=== PATIENT | male | born 1955 | race Caucasian/White ===

== ENCOUNTER → 2017-02-03 | Outpatient (CLI) | payer BC ==
[2017-02-06 13:41] LABS: Hepatits C Virus RNA, Quant <12 IU/mL (<12); LOG HCV IU/mL <1.08 (<1.08)
== END | disposition home or self-care (01) ==
LOC: LABWHC1 16:12
PROVIDERS: ATTEND Family Medicine
DX: R94.5 Abnormal results of liver function studies (principal); B17.10 Acute hepatitis C without hepatic coma
CPT/HCPCS: 36415; 87522

== ENCOUNTER → 2018-07-02 | Outpatient (CLI) | payer BC ==
--- NOTE | 2018-07-02 15:43 | ECHOF ---
Referral Reason:R01.1 Cardiac murmur, unspecified MEASUREMENTS -------- HEIGHT: 167.6 cm WEIGHT: 88.5 kg BP: 133/77 IVSd: 1.5 cm (0.6 - 1.1) LVIDd: 3.7 cm (3.9 - 5.3) LVPWd: 1.4 cm (0.6 - 1.1) IVSs: 1.6 cm LVIDs: 2.8 cm LVPWs: 1.9 cm LA Diam: 3.5 cm (2.7 - 3.8) RVIDd: 3.0 cm (< 3.3) LAESV Index (A-L): 24.65 ml/m Ao Diam: 3.2 cm (2.0 - 3.7) AV Cusp: 1.7 cm (1.5 - 2.6) EPSS: 0.5 cm MV E Akash: 0.81 m/s MV DecT: 240 ms MV A Akash: 1.09 m/s MV E/A Ratio: 0.74 AV maxP.29 mmHg AV meanP.65 mmHg MV EF SLOPE: 58.40 mm/s (70 - 150) MV EXCURSION: 19.44 mm (> 18.000) FINDINGS -------- Sinus rhythm. This was a technically adequate study. The left ventricular size is normal. There is moderate concentric left ventricular hypertrophy. O verall left ventricular systolic function is normal with, an EF between 60 - 65 %. The right ventricle is normal in size. Normal LA size by volume 22+/-6 ml/m2. The right atrium is normal in size. There is moderate aortic valve sclerosis. There is severe aortic stenosis present. Peak/mean grad ient across the Aortic Valve is 103.29mmHg / 69.65mmHg. Can't exclude possible Bicuspid Aov. The mitral valve is normal. The tricuspid valve appears structurally normal. Trace/mild (physiologic) pulmonic regurgitation. The aortic root size is normal. Normal inferior vena cava with normal inspiratory collapse consistent with estimated right atrial pre ssure of 5 mmHg. There is no pericardial effusion. CONCLUSIONS -------- 1. Sinus rhythm. 2. This was a technically adequate study. 3. The left ventricular size is normal. 4. There is moderate concentric left ventricular hypertrophy. 5. Overall left ventricular systolic function is normal with, an EF between 60 - 65 %. 6. The right ventricle is normal in size. 7. Normal LA size by volume 22+/-6 ml/m2. 8. The right atrium is normal in size. 9. There is moderate aortic valve sclerosis. 10. There is severe aortic stenosis present. 11. Peak/mean gradient across the Aortic Valve is 103.29mmHg / 69.65mmHg. 12. Can't exclude possible Bicuspid Aov. 13. The mitral valve is normal. 14. The tricuspid valve appears structurally normal. 15. Trace/mild (physiologic) pulmonic regurgitation. 16. The aortic root size is normal. 17. Normal inferior vena cava with normal inspiratory collapse consistent with estimated right atrial pressure of 5 mmHg. 18. There is no pericardial effusion. SUPPORTABILITY ENGINEER: Mandy Plasencia RDCS
== END ==
LOC: RADECHMAIN 13:09
PROVIDERS: ATTEND Family Medicine
DX: I51.7 Cardiomegaly (principal); I35.8 Other nonrheumatic aortic valve disorders; I37.1 Nonrheumatic pulmonary valve insufficiency
CPT/HCPCS: 93306

== ENCOUNTER 2018-09-06 21:42 | Inpatient (IN) | payer BC, MEDICARE ==
[2018-09-06] MEDS ORDERED: methylPREDNISolone SOD SUCCI 125 MG/2 ML VIAL IV STA (22:05)
[2018-09-06] MEDS ORDERED: IPRATROPIUM-ALBUTEROL 3 ML NEB INHALATION STA (22:05)
[2018-09-06] MEDS ORDERED: ASPIRIN 81 MG PO STA (22:07)
--- NOTE | 2018-09-06 22:13 | ED ---
General Adult HPI - General Chief complaint: Shortness of Breath Stated complaint: SOB Time Seen by Provider: 09/06/18 21:55 Source: patient Mode of arrival: wheelchair Limitations: no limitations - History of Present Illness Initial comments: Patient is a 63-year-old male with chief complaint of shortness of breath. He states the onset was today. He woke up and had a "tickle in his throat" states throughout the day he became more more short of breath. He has a history of COPD otherwise no medical history. He states that he has some tightness in his chest. He cannot identify inciting incident. There are no aggravating or alleviating factors though he does state his shortness of breath worse when he is lying down. - Related Data Home Medications Medication Instructions Recorded Confirmed Acetylcysteine [Nac] 500 mg PO DAILY 09/06/18 09/06/18 Ascorbic Acid [Vitamin C] 500 mg PO DAILY 09/06/18 09/06/18 Cholecalciferol [Vitamin D3] 1,000 unit PO DAILY 09/06/18 09/06/18 Fluticasone/Umeclidin/Vilanter 1 puff INHALATION DAILY 09/06/18 09/06/18 [Trelegy Ellipta 100-62.5-25] Multivitamins, Thera [Multivitamin 1 tab PO DAILY 09/06/18 09/06/18 (formulary)] Vitamin E 100 unit PO DAILY 09/06/18 09/06/18 amLODIPine [Norvasc] 10 mg PO DAILY 09/06/18 09/06/18 Allergies Allergy/AdvReac Type Severity Reaction Status Date / Time No Known Allergies Allergy Verified 09/06/18 22:47 Review of Systems ROS Statement: Those systems with pertinent positive or pertinent negative responses have been documented in the HPI. ROS Other: All systems not noted in ROS Statement are negative. Respiratory: Reports: cough, dyspnea Cardiovascular: Reports: chest pain, dyspnea on exertion Past Medical History Past Medical History: COPD, Hypertension Additional Past Medical History / Comment(s): heart murmur History of Any Multi-Drug Resistant Organisms: None Reported Past Surgical History: Orthopedic Surgery Additional Past Surgical History / Comment(s): lt leg Past Psychological History: No Psychological Hx Reported Smoking Status: Former smoker Past Alcohol Use History: Daily Past Drug Use History: None Reported General Exam Limitations: no limitations General appearance: alert Head exam: Present: atraumatic, normocephalic Eye exam: Present: normal appearance ENT exam: Present: normal exam Neck exam: Present: normal inspection Respiratory exam: Present: normal lung sounds bilaterally Cardiovascular Exam: Present: normal rhythm, tachycardia GI/Abdominal exam: Present: soft. Absent: distended, tenderness Rectal exam: Present: deferred Extremities exam: Present: other (Patient right leg is ordered of the left leg with some venous engorgement however the patient states that this is not new for him. He states that he had an injury to his left leg and had part of his Muscle surgically removed. There is no tenderness to palpation of either leg) Back exam: Present: normal inspection Neurological exam: Present: alert, oriented X3 Psychiatric exam: Present: normal affect, normal mood Skin exam: Present: warm, dry, intact Course Vital Signs 09/06/18 09/06/18 09/06/18 21:43 21:56 22:22 Temperature 100.0 F H Pulse Rate 108 H 98 Respiratory 26 H 22 Rate Blood Pressure 124/74 O2 Sat by Pulse 94 L Oximetry 09/06/18 09/06/18 09/06/18 22:33 22:54 22:55 Temperature 99.8 F H Pulse Rate 90 118 H 103 H Respiratory 22 Rate Blood Pressure 120/72 O2 Sat by Pulse 95 Oximetry 09/06/18 23:25 Temperature 99.6 F Pulse Rate 108 H Respiratory 22 Rate Blood Pressure 169/84 O2 Sat by Pulse 92 L Oximetry Medical Decision Making - Medical Decision Making Patient presents with chief complaint of shortness of breath and chest tightness. On initial evaluation, patient is tachypneic and tachycardic. His oxygen saturation is 92% on room air. EKG performed at 1256 shows sinus tachycardia with a rate of 105 beats per minutes. There is a right bundle branch block present. There are no previous EKGs to compare to. Segment otherwise appear to be within normal limits. Patient and be evaluated basic labs including cardiac enzymes, chest x-ray, and d-dimer. He was given aspirin initially. He is given 3 DuoNeb treatments and Solu-Medrol. 10:52 PM Lab evaluation shows mildly elevated liver enzymes likely secondary to daily drinking, patient is influenza A positive, his d-dimer is elevated 0.63. If age-adjusted, the dimer is negative however given the patient's clinical appearance and shortness of breath without abnormal lung sounds he will be sent for a computed tomography scan of the chest to rule out PE. 11:18 PM Patient return CAT scan, he had what appeared to be a syncopal episode but recovered quickly on his own. Currently he is awake and alert. Still mild respiratory distress. Repeat EKG is unchanged, it shows sinus tachycardia with a rate of 108, right bundle-branch still present. Segment was within normal limits. Patient has a mildly elevated BNP in the 500 range, his troponin is mildly elevated. This is likely secondary to demand. We'll hold on heparinization at this time however will bring patient into the hospital for formal cardiac evaluation. admitting physician is Dr. Maier, he will be informed in the morning. admission orders placed. - Lab Data Result diagrams: 09/06/18 22:19 09/06/18 22: Lab Results 09/06/18 09/06/18 09/06/18 Range/Units 22:19 22:19 22:19 WBC 9.0 (3.8-10.6) k/uL RBC 4.39 (4.30-5.90) m/uL Hgb 15.0 (13.0-17.5) gm/dL Hct 43.8 (39.0-53.0) % MCV 99.7 (80.0-100.0) fL MCH 34.1 (25.0-35.0) pg MCHC 34.2 (31.0-37.0) g/dL RDW 12.7 (11.5-15.5) % Plt Count 164 (150-450) k/uL Neutrophils % 90 % Lymphocytes % 3 % Monocytes % 3 % Eosinophils % 3 % Basophils % 0 % Neutrophils # 8.1 H (1.3-7.7) k/uL Lymphocytes # 0.3 L (1.0-4.8) k/uL Monocytes # 0.3 (0-1.0) k/uL Eosinophils # 0.2 (0-0.7) k/uL Basophils # 0.0 (0-0.2) k/uL PT (9.0-12.0) sec INR (<1.2) APTT (22.0-30.0) sec D-Dimer (<0.60) mg/L FEU Sodium (137-145) mmol/L Potassium (3.5-5.1) mmol/L Chloride (98-107) mmol/L Carbon Dioxide (22-30) mmol/L Anion Gap mmol/L BUN (9-20) mg/dL Creatinine (0.66-1.25) mg/dL Est GFR (CKD-EPI)AfAm (>60 ml/min/1.73 sqM) Est GFR (CKD-EPI)NonAf (>60 ml/min/1.73 sqM) Glucose (74-99) mg/dL Calcium (8.4-10.2) mg/dL Magnesium (1.6-2.3) mg/dL Total Bilirubin (0.2-1.3) mg/dL AST (17-59) U/L ALT (21-72) U/L Alkaline Phosphatase (38-126) U/L Troponin I (0.000-0.034) ng/mL NT-Pro-B Natriuret Pep 532 pg/mL Total Protein (6.3-8.2) g/dL Albumin (3.5-5.0) g/dL Influenza Type A RNA Detected H (Not Detectd) Influenza Type B (PCR) Not Detected (Not Detectd) 09/06/18 09/06/18 09/06/18 Range/Units 22:19 22:19 22:19 WBC (3.8-10.6) k/uL RBC (4.30-5.90) m/uL Hgb (13.0-17.5) gm/dL Hct (39.0-53.0) % MCV (80.0-100.0) fL MCH (25.0-35.0) pg MCHC (31.0-37.0) g/dL RDW (11.5-15.5) % Plt Count (150-450) k/uL Neutrophils % % Lymphocytes % % Monocytes % % Eosinophils % % Basophils % % Neutrophils # (1.3-7.7) k/uL Lymphocytes # (1.0-4.8) k/uL Monocytes # (0-1.0) k/uL Eosinophils # (0-0.7) k/uL Basophils # (0-0.2) k/uL PT 10.5 (9.0-12.0) sec INR 1.0 (<1.2) APTT 26.1 (22.0-30.0) sec D-Dimer 0.63 H (<0.60) mg/L FEU Sodium 139 (137-145) mmol/L Potassium 4.1 (3.5-5.1) mmol/L Chloride 106 (98-107) mmol/L Carbon Dioxide 20 L (22-30) mmol/L Anion Gap 13 mmol/L BUN 14 (9-20) mg/dL Creatinine 0.83 (0.66-1.25) mg/dL Est GFR (CKD-EPI)AfAm >90 (>60 ml/min/1.73 sqM) Est GFR (CKD-EPI)NonAf >90 (>60 ml/min/1.73 sqM) Glucose 117 H (74-99) mg/dL Calcium 8.8 (8.4-10.2) mg/dL Magnesium 2.0 (1.6-2.3) mg/dL Total Bilirubin 0.8 (0.2-1.3) mg/dL AST 64 H (17-59) U/L ALT 90 H (21-72) U/L Alkaline Phosphatase 83 (38-126) U/L Troponin I 0.036 H* (0.000-0.034) ng/mL NT-Pro-B Natriuret Pep pg/mL Total Protein 7.0 (6.3-8.2) g/dL Albumin 3.9 (3.5-5.0) g/dL Influenza Type A RNA (Not Detectd) Influenza Type B (PCR) (Not Detectd) Disposition Clinical Impression: Influenza, COPD exacerbation, Elevated troponin, Chest pain Disposition: ADMITTED IP TO THIS HOSP Condition: Fair Is patient prescribed a controlled substance at d/c from ED?: No Referrals: Mina Julien MD [Primary Care Provider] - 1-2 days Decision to Admit Reason: Admit from EC - Out of Hospital Transfer - Req. Specs Out of Hospital Transfer - Requested Specifics: Telemetry Unit
[2018-09-06 22:31] LABS: Basophils % (A) 0 %; Eosinophils # (A) 0.2 k/uL (0-0.7); Eosinophils % (A) 3 %; HCT 43.8 % (39.0-53.0); Lymphocytes # (A) 0.3 k/uL (1.0-4.8); Lymphocytes % (A) 3 %; MCH 34.1 pg (25.0-35.0); MCHC 34.2 g/dL (31.0-37.0); MCV 99.7 fL (80.0-100.0); Mean Platelet Volume 7.1; Monocytes # (A) 0.3 k/uL (0-1.0); Monocytes % (A) 3 %; Neutrophils # (A) 8.1 k/uL (1.3-7.7); Neutrophils % (A) 90 %; Platelet Count 164 k/uL (150-450); RBC 4.39 m/uL (4.30-5.90); RDW 12.7 % (11.5-15.5)
[2018-09-06 22:41] LABS: ALT 90 U/L (21-72); AST 64 U/L (17-59); Albumin 3.9 g/dL (3.5-5.0); Alkaline Phosphatase 83 U/L (38-126); Anion Gap 13 mmol/L; Blood Urea Nitrogen 14 mg/dL (9-20); Calcium 8.8 mg/dL (8.4-10.2); Carbon Dioxide 20 mmol/L (22-30); Chloride 106 mmol/L (98-107); Glucose 117 mg/dL (74-99); Potassium 4.1 mmol/L (3.5-5.1); Sodium 139 mmol/L (137-145); Total Bilirubin 0.8 mg/dL (0.2-1.3)
[2018-09-06 22:47] LABS: D-Dimer 0.63 mg/L FEU (<0.60); Partial Thromboplastin Time 26.1 sec (22.0-30.0); Prothrombin Time 10.5 sec (9.0-12.0)
[2018-09-06] MEDS ORDERED: SODIUM CHLORIDE 0.9% 1,000 ML IV ONE (23:13)
--- NOTE | 2018-09-06 23:30 | XR ---
EXAM: XR Chest, 2 Views CLINICAL HISTORY: Difficulty breathing. TECHNIQUE: Frontal and lateral views of the chest. COMPARISON: CTA chest dated 09/06/2018. FINDINGS: Lungs: Subtle opacity in the right perihilar and infrahilar regions and left upper lung. Pleural space: No significant pleural effusion. No pneumothorax. Heart: Mildly enlarged cardiac silhouette. Mediastinum: Unremarkable. No mediastinal widening. Bones/joints: Age-indeterminate right lateral rib fractures which are favored to be chronic. Mild osseous degenerative changes. IMPRESSION: 1. Subtle opacity in the right perihilar and infrahilar regions and left upper lung. Findings may be related to subtle nonspecific pneumonia/pneumonitis although other etiologies are not excluded. Recommend clinical correlation and follow-up imaging to assess for resolution. 2. Mildly enlarged cardiac silhouette. 3. Age-indeterminate right lateral rib fractures which are favored to be chronic. Correlate currently.
[2018-09-06] MEDS ORDERED: NALOXONE 0.4 MG/ML 1 ML VIAL IV PRN (23:33)
[2018-09-06] MEDS ORDERED: ONDANSETRON 4 MG/2 ML VIAL IVP PRN (23:33)
[2018-09-06] MEDS ORDERED: ACETAMINOPHEN TAB 500 MG TAB PO SCH (23:45)
--- NOTE | 2018-09-06 23:48 | CT ---
EXAM: CT Angiography Chest With Intravenous Contrast CLINICAL HISTORY: Pain. TECHNIQUE: Axial computed tomographic angiography images of the chest with intravenous contrast using pulmonary embolism protocol. MIP reconstructed images were created and reviewed. Coronal and sagittal reformatted images were created and reviewed. CTDI is 37.18 mGy and DLP is 555 mGy-cm. This CT exam was performed using one or more of the following dose reduction techniques: automated exposure control, adjustment of the mA and/or kV according to patient size, and/or use of iterative reconstruction technique. COMPARISON: No relevant prior studies available. FINDINGS: Pulmonary arteries: No evidence of pulmonary embolism. Aorta: Atherosclerotic vascular disease. No thoracic aortic aneurysm or dissection. Lungs: Subtle ground-glass opacities in the bilateral upper lobes, right middle lobe and right lower lobe. Pleural space: No pleural effusion or pneumothorax. Heart: Coronary artery disease. Cardiac size within normal limits. No pericardial effusion. No evidence of RV dysfunction. Mediastinum: Small hiatal hernia. Bones/joints: Healed right-sided rib fractures. Osseous degenerative changes. No dislocation. Soft tissues: Unremarkable. Lymph nodes: Mildly prominent mediastinal and hilar lymph nodes. Visualized upper abdomen: Fatty infiltration of the liver. IMPRESSION: 1. No evidence of pulmonary embolism. 2. Atherosclerotic vascular disease. No thoracic aortic aneurysm or dissection. 3. Subtle ground-glass opacities in bilateral upper lobes, right middle lobe and right lower lobe with mildly prominent mediastinal and hilar lymph nodes. Findings are suspicious for pneumonitis which may be due to infectious, inflammatory or other causes. Recommend clinical correlation and follow-up imaging following treatment to ensure resolution. 4. Fatty infiltration of the liver. 5. Small hiatal hernia. 6. Healed right-sided rib fractures.
[2018-09-07] MEDS: ALBUTEROL NEBULIZED 2.5 MG/3 ML INHALATION SCH ×7 (00:22→23:49)
[2018-09-07] MEDS: OSELTAMIVIR 75 MG CAP PO SCH ×3 (00:25→20:19)
[2018-09-07] MEDS ORDERED: ACETAMINOPHEN TAB 500 MG TAB PO PRN (00:47)
[2018-09-07 01:08] VITALS: BMI 32.8
[2018-09-07 04:28] LABS: Basophils % (A) 0 %; Eosinophils # (A) 0.1 k/uL (0-0.7); Eosinophils % (A) 1 %; HCT 43.7 % (39.0-53.0); HGB 14.4 gm/dL (13.0-17.5); Lymphocytes # (A) 0.3 k/uL (1.0-4.8); Lymphocytes % (A) 3 %; MCH 33.4 pg (25.0-35.0); MCHC 32.9 g/dL (31.0-37.0); MCV 101.5 fL (80.0-100.0); Mean Platelet Volume 7.1; Monocytes # (A) 0.1 k/uL (0-1.0); Monocytes % (A) 2 %; Neutrophils # (A) 8.5 k/uL (1.3-7.7); Neutrophils % (A) 94 %; Platelet Count 157 k/uL (150-450); RDW 12.7 % (11.5-15.5); WBC 9.1 k/uL (3.8-10.6)
[2018-09-07 04:43] LABS: Anion Gap 10 mmol/L; Blood Urea Nitrogen 12 mg/dL (9-20); Calcium 8.7 mg/dL (8.4-10.2); Carbon Dioxide 19 mmol/L (22-30); Chloride 108 mmol/L (98-107); Glucose 175 mg/dL (74-99); Potassium 4.1 mmol/L (3.5-5.1); Sodium 137 mmol/L (137-145)
[2018-09-07] MEDS: IPRATROPIUM-ALBUTEROL 3 ML NEB INHALATION SCH ×3 (12:31→20:05)
--- NOTE | 2018-09-07 14:01 | P.CRDCN ---
History of Present Illness History of present illness: This is a pleasant 63-year-old male past medical history significant for hypertension, COPD and former nicotine dependence. He denies history of coronary artery disease and has never seen a building engineer for any reason. We have been asked to see him in consultation secondary to elevated troponins. He presented to the hospital yesterday with complaints of cough. He states after going home from work last night he felt increasingly short of breath and was having pleuritic midsternal chest discomfort with deep inspiration and cough. Upon arriving to the hospital he received a breathing treatment and was placed on supplemental oxygen. He states since undergoing those 2 things his breathing has greatly improved. He denies any further shortness of breath or pleuritic chest pain. He was found to be influenza A positive. In June of last year he underwent an echocardiogram per his primary care physician secondary to auscultation over murmur which revealed preserved left ventricular systolic function with ejection fraction 60-65% with severe aortic stenosis and a mean gradient of 69 mmHg. He is seen and examined sitting up in the chair in no acute distress. HEENT denies symptoms of chest discomfort, shortness of breath, dizziness or palpitations. EKG reveals sinus tachycardia heart rate is 105 with an underlying right bundle branch block. Chest x-ray reveals subtle pacing in the right perihilar and infrahilar regions suggestive of pneumonia versus pneumonitis. CTA chest is negative for PE, atherosclerotic vascular disease, chronic glass opacities in bilateral upper lobes, right middle lobe and right lower lobe prominent lymph nodes, findings suggestive of pneumonitis. Laboratory data reviewed, WBC 9.1, hemoglobin 14.4, platelets 157, d-dimer 0.63, sodium 137, potassium 4.1, creatinine 0.66, magnesium 2.0, AST 64, ALT 90, troponin 0.036, 0.063, 0.176 and 0.330, NT proBNP 532. Current cardiac medications include amlodipine 10 mg daily. At the time of my exam: CONSTITUTIONAL: Denies fever. Denies chills. EYES: Denies blurred vision. Denies vision changes. Denies eye pain. EARS, NOSE, MOUTH & THROAT: Denies headache. Denies sore throat. Denies ear pain. CARDIOVASCULAR: Denies chest pain. Denies shortness of breath. Denies orthopnea. Denies PND. Denies palpitations. RESPIRATORY: Denies cough. GASTROINTESTINAL: Denies abdominal pain. Denies diarrhea. Denies constipation. Denies nausea. Denies vomiting. MUSCULOSKELETAL: Denies myalgias. INTEGUMENTARY: Denies pruitis. Denies rash. NEUROLOGIC: Denies numbness. Denies tingling. Denies weakness. PSYCHIATRIC: Denies anxiety. Denies depression. ENDOCRINE: Denies fatigue. Denies weight change. Denies polydipsia. Denies polyurina. GENITOURINARY: Denies burning, hematuria or urgency with micturation. HEMATOLOGIC: Denies history of anemia. Denies bleeding. Blood pressure 129/72 heart rate 101 afebrile maintaining oxygen saturation on nasal cannula GENERAL: This is a 63-year-old male in no apparent distress at the time of my examination. HEENT: Head is atraumatic, normocephalic. Pupils are equal, round. Sclerae anicteric. Conjunctivae are clear. Mucous membranes of the mouth are moist. Neck is supple. There is no jugular venous distention. No carotid bruit is heard. LUNGS: Clear to auscultation no wheezes, rales or rhonchi. No chest wall tenderness is noted on palpation or with deep breathing. HEART: Regular rate and rhythm with systolic ejection murmur at the base, no rubs or gallops. S1 and S2 heard. ABDOMEN: Soft, nontender. Bowel sounds are heard. No organomegaly noted. EXTREMITIES: No evidence of peripheral edema and no calf tenderness noted. VASCULAR: Radial and dorsalis pedis pulses palpated, no evidence of clubbing. NEUROLOGIC: Patient is awake, alert and oriented x3. ASSESSMENT Influenza A Febrile illness Severe aortic stenosis Troponin elevation of unknown etiology, may be related to acute illness versus myocardial ischemia. No symptoms of angina or EKG changes indicative of an acute coronary syndrome. Hypertension PLAN Obtain a limited 2-D echocardiogram to assess LV function. Continue amlodipine 10 mg daily. Lengthy discussion had regarding aortic stenosis and the need for a DONA. Further recommendations to follow based on clinical course. Thank you kindly for this consultation Nurse Practitioner note has been reviewed, I agree with a documented findings and plan of care. Patient was seen and examined. Past Medical History Past Medical History: COPD, Hypertension Additional Past Medical History / Comment(s): heart murmur History of Any Multi-Drug Resistant Organisms: None Reported Past Surgical History: Orthopedic Surgery Additional Past Surgical History / Comment(s): left leg Past Anesthesia/Blood Transfusion Reactions: No Reported Reaction Past Psychological History: No Psychological Hx Reported Smoking Status: Former smoker Past Alcohol Use History: Daily Past Drug Use History: None Reported - Past Family History Mother Family Medical History: Coronary Artery Disease (CAD) Father Family Medical History: Asthma Medications and Allergies Home Medications Medication Instructions Recorded Confirmed Type Acetylcysteine [Nac] 500 mg PO DAILY 09/06/18 09/06/18 History Ascorbic Acid [Vitamin C] 500 mg PO DAILY 09/06/18 09/06/18 History Cholecalciferol [Vitamin D3] 1,000 unit PO DAILY 09/06/18 09/06/18 History Fluticasone/Umeclidin/Vilanter 1 puff INHALATION DAILY 09/06/18 09/06/18 History [Trelegy Ellipta 100-62.5-25] Multivitamins, Thera [Multivitamin 1 tab PO DAILY 09/06/18 09/06/18 History (formulary)] Vitamin E 100 unit PO DAILY 09/06/18 09/06/18 History amLODIPine [Norvasc] 10 mg PO DAILY 09/06/18 09/06/18 History Allergies Allergy/AdvReac Type Severity Reaction Status Date / Time No Known Allergies Allergy Verified 09/06/18 22:47 Physical Exam Vitals: Vital Signs Temp Pulse Pulse Resp BP BP Pulse Ox 09/07/18 11:19 98.1 F 101 H 20 129/72 95 09/07/18 08:00 98.9 F 107 H 20 122/79 94 L 09/07/18 07:47 92 09/07/18 07:38 92 09/07/18 04:00 98 F 101 H 20 123/77 95 09/07/18 03:44 102 H 09/07/18 03:38 102 H 09/07/18 03:17 20 09/07/18 01:00 98.5 F 106 H 20 121/68 93 L 09/07/18 00:27 99.5 F 105 H 18 108/67 94 L 09/06/18 23:25 99.6 F 108 H 22 169/84 92 L 09/06/18 22:55 99.8 F H 103 H 22 120/72 95 09/06/18 22:54 118 H 09/06/18 22:33 90 09/06/18 22:22 98 09/06/18 21:56 22 09/06/18 21:43 100.0 F H 108 H 26 H 124/74 94 L Intake and Output 09/06/18 09/07/18 09/07/18 22:59 06:59 14:59 Intake Total 240 Output Total 600 Balance -360 Intake: Oral 240 Output: Urine 600 Other: Voiding Method Toilet Toilet Urinal Urinal Weight 90.718 kg 92.1 kg Results 09/07/18 04:13 09/07/18 04:13 Cardiac Enzymes 09/06/18 09/06/18 09/07/18 Range/Units 22:19 22:19 00:14 AST 64 H (17-59) U/L Troponin I 0.036 H* 0.063 H* (0.000-0.034) ng/mL 09/07/18 09/07/18 Range/Units 04:13 10:11 AST (17-59) U/L Troponin I 0.176 H* 0.330 H* (0.000-0.034) ng/mL Coagulation 09/06/18 Range/Units 22:19 PT 10.5 (9.0-12.0) sec APTT 26.1 (22.0-30.0) sec CBC 09/06/18 09/07/18 Range/Units 22:19 04:13 WBC 9.0 9.1 (3.8-10.6) k/uL RBC 4.39 4.30 (4.30-5.90) m/uL Hgb 15.0 14.4 (13.0-17.5) gm/dL Hct 43.8 43.7 (39.0-53.0) % Plt Count 164 157 (150-450) k/uL Comprehensive Metabolic Panel 09/06/18 09/07/18 Range/Units 22:19 04:13 Sodium 139 137 (137-145) mmol/L Potassium 4.1 4.1 (3.5-5.1) mmol/L Chloride 106 108 H (98-107) mmol/L Carbon Dioxide 20 L 19 L (22-30) mmol/L BUN 14 12 (9-20) mg/dL Creatinine 0.83 0.66 (0.66-1.25) mg/dL Glucose 117 H 175 H (74-99) mg/dL Calcium 8.8 8.7 (8.4-10.2) mg/dL AST 64 H (17-59) U/L ALT 90 H (21-72) U/L Alkaline Phosphatase 83 (38-126) U/L Total Protein 7.0 (6.3-8.2) g/dL Albumin 3.9 (3.5-5.0) g/dL Current Medications Generic Name Dose Route Start Last Admin Trade Name Freq PRN Reason Stop Dose Admin Acetaminophen 1,000 mg 09/07/18 00:47 Tylenol Tab PO Q6HR PRN Fever and/ or Pain Albuterol Sulfate 2.5 mg 09/06/18 23:45 09/07/18 07:35 Ventolin Nebulized INHALATION 2.5 mg Q4H RUTH Administration Naloxone HCl 0.2 mg 09/06/18 23:33 Narcan IV Q2M PRN Opioid Reversal Ondansetron HCl 4 mg 09/06/18 23:33 Zofran IVP Q8HR PRN Nausea And Vomiting Oseltamivir Phosphate 75 mg 09/06/18 23:30 09/07/18 00:25 Tamiflu PO 09/11/18 09:01 Not Given Q12HR RUTH Intake and Output 09/06/18 09/07/18 09/07/18 22:59 06:59 14:59 Intake Total 240 Output Total 600 Balance -360 Intake: Oral 240 Output: Urine 600 Other: Voiding Method Toilet Toilet Urinal Urinal Weight 90.718 kg 92.1 kg 09/07/18 04:13 09/07/18 04:13
[2018-09-07] MEDS: ACETYLCYSTEINE 800 MG/4 ML VIAL PO SCH (14:03)
[2018-09-07] MEDS: MULTIVITAMINS, THERA 1 EACH TAB PO SCH (14:04)
[2018-09-07] MEDS: ASCORBIC ACID 500 MG TAB PO SCH (14:05)
[2018-09-07] MEDS: VITAMIN E (DL,TOCOPHERYL ACET) 400 UNIT CAP PO SCH (15:40)
[2018-09-07] MEDS: amLODIPine 10 MG TAB PO SCH (15:40)
[2018-09-07] MEDS ORDERED: LACTULOSE 20 GM/30 ML CUP PO PRN (19:19)
[2018-09-07] MEDS ORDERED: ALPRAZolam 0.25 MG TAB PO PRN (19:19)
[2018-09-07] MEDS ORDERED: MAGNESIUM HYDROXIDE 2,400 MG/10 ML CUP PO PRN (19:19)
[2018-09-07] MEDS ORDERED: MELATONIN 3 MG TABLET PO PRN (19:19)
[2018-09-07] MEDS ORDERED: CALCIUM CARBONATE 500 MG CHEWABLE PO PRN (19:19)
[2018-09-07] MEDS ORDERED: ACETAMINOPHEN TAB 325 MG TAB PO PRN (19:19)
[2018-09-07] MEDS ORDERED: ENOXAPARIN 40 MG/0.4 ML SYRINGE SQ SCH (20:00)
[2018-09-07] MEDS: BUDESONIDE 1 MG/2 ML NEBU INHALATION SCH (20:12)
[2018-09-07 20:48] LABS: Glucose,Whole Blood 134 mg/dL (75-99)
[2018-09-07] MEDS: methylPREDNISolone SOD SUCCI 40 MG/ML 1 ML VIAL IV SCH (20:57)
[2018-09-07] MEDS: INSULIN ASPART (NovoLOG) 100 UNIT/ML VIAL SQ SCH (20:58)
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
[2018-09-08] MEDS: methylPREDNISolone SOD SUCCI 40 MG/ML 1 ML VIAL IV SCH ×2 (00:33→09:07)
[2018-09-08 02:29] LABS: Cholesterol 158 mg/dL (<200); HDL Cholesterol 54 mg/dL (40-60); LDL Cholesterol,Calculated 93 mg/dL (0-99); Triglycerides 54 mg/dL (<150)
[2018-09-08] MEDS: ALBUTEROL NEBULIZED 2.5 MG/3 ML INHALATION SCH ×3 (03:54→13:03)
[2018-09-08 06:10] LABS: Glucose,Whole Blood 186 mg/dL (75-99)
[2018-09-08] MEDS: INSULIN ASPART (NovoLOG) 100 UNIT/ML VIAL SQ SCH ×2 (06:32→12:49)
[2018-09-08] MEDS: IPRATROPIUM-ALBUTEROL 3 ML NEB INHALATION SCH ×3 (08:25→16:11)
[2018-09-08] MEDS: BUDESONIDE 1 MG/2 ML NEBU INHALATION SCH (08:25)
[2018-09-08] MEDS ORDERED: ASPIRIN 81 MG PO SCH (09:00)
[2018-09-08] MEDS: OSELTAMIVIR 75 MG CAP PO SCH (09:06)
[2018-09-08] MEDS: VITAMIN E (DL,TOCOPHERYL ACET) 400 UNIT CAP PO SCH (09:06)
[2018-09-08] MEDS: amLODIPine 10 MG TAB PO SCH (09:06)
[2018-09-08] MEDS: ASCORBIC ACID 500 MG TAB PO SCH (09:07)
[2018-09-08 11:05] LABS: Glucose,Whole Blood 216 mg/dL (75-99)
[2018-09-08 12:10] VITALS: RESP 20
--- NOTE | 2018-09-08 12:31 | ECHOF ---
Referral Reason:elev trop, LV function MEASUREMENTS -------- HEIGHT: 170.2 cm WEIGHT: 92.1 kg BP: FINDINGS -------- Echo 06/19, Limited Study for LV Function. Overall left ventricular systolic function is normal with, an EF between 55 - 60 %. CONCLUSIONS -------- 1. Echo 06/19, Limited Study for LV Function. 2. Overall left ventricular systolic function is normal with, an EF between 55 - 60 %. [employer]: Josefina Rutherford RDCS
[2018-09-08] MEDS: MULTIVITAMINS, THERA 1 EACH TAB PO SCH (12:49)
[2018-09-08 12:56] VITALS: TEMP 97.8
[2018-09-08] MEDS: ACETYLCYSTEINE 800 MG/4 ML VIAL PO SCH (15:46)
[2018-09-08 16:22] VITALS: BP 146/81
[2018-09-08 16:25] VITALS: PULSE 104
[2018-09-08 16:43] LABS: Glucose,Whole Blood 152 mg/dL (75-99)
--- NOTE | 2018-09-08 18:10 | P.PN ---
Subjective Progress Note Date: 09/08/18 This 63-year-old gentleman was admitted with cough and congestion and diagnosed to have influenza A and possible pneumonitis. Patient is also found to have evidence of severe aortic stenosis. He denies any chest pain, dizziness or syncopal episodes. His lab values showed abnormal troponins. Echo showed normal LV function. Patient is clinically stable without and wants to be discharged. Patient is being discharged home. Patient will have follow-up in the office in one week. Subsequently we'll have evaluation with DONA and cardiac catheterization. Further recommendations depend upon clinical course. Meanwhile patient is to avoid any exertional activities Objective - Vital Signs Vital signs: Vital Signs Temp 97.8 F 09/08/18 12:00 Pulse 104 H 09/08/18 16:24 Resp 20 09/08/18 15:52 BP 146/81 09/08/18 15:52 Pulse Ox 92 L 09/08/18 15:52 Intake & Output 09/07/18 09/08/18 09/08/18 18:59 06:59 18:59 Intake Total 720 480 Output Total 800 Balance -80 480 Weight 90 kg Intake: Oral 720 480 Output: Urine 800 Other: Voiding Method Toilet Toilet # Voids 2 4 - Exam GENERAL EXAM: Patient is alert and oriented and doesn't appear to be in any acute distress HEENT: Normocephalic. Normal reaction of pupils, equal size, normal range of extraocular motion. No erythema or exudates in the throat. NECK: No masses, no nuchal rigidity. CHEST: No chest wall deformity. LUNGS: Rhonchi HEART: S1 and S2 normal . Systolic murmur in the aortic area ABDOMEN: No hepatosplenomegaly, normal bowel sounds, no guarding or rigidity. SKIN: No rashes CENTRAL NERVOUS SYSTEM: No focal deficits. EXTREMITIES: No cyanosis, clubbing or edema. - Labs CBC & Chem 7: 09/07/18 04:13 09/07/18 04:13 Labs: Abnormal Lab Results - Last 24 Hours (Table) 09/07/18 09/08/18 09/08/18 Range/Units 20:46 06:09 11:04 POC Glucose (mg/dL) 134 H 186 H 216 H (75-99) mg/dL 09/08/18 Range/Units 16:43 POC Glucose (mg/dL) 152 H (75-99) mg/dL Assessment and Plan (1) Severe aortic stenosis Status: Acute Code(s): I35.0 - NONRHEUMATIC AORTIC (VALVE) STENOSIS SNOMED Code(s): 51322675 (2) Elevated troponin Status: Acute Code(s): R74.8 - ABNORMAL LEVELS OF OTHER SERUM ENZYMES SNOMED Code(s): 518410012 (3) Influenza Status: Acute Code(s): J11.1 - FLU DUE TO UNIDENTIFIED INFLUENZA VIRUS W OTH RESP MANIFEST SNOMED Code(s): 6856632 Plan: Patient seemed to be clinically stable. Wants to go home. Follow-up in the office in one week. Further evaluation by DONA and cardiac catheterization
--- NOTE | 2018-09-08 20:44 | DS ---
DISCHARGE SUMMARY DATE OF ADMISSION: September 06, 2018 DATE OF DISCHARGE: September 08, 2018. FINAL DIAGNOSES: 1. Acute influenza A pneumonitis with possible myocarditis. 2. Acute chronic obstructive pulmonary disease exacerbation in an ex-smoker. 3. Troponin leak probably from myocarditis, not acute coronary syndrome. 4. Essential hypertension. 5. Severe aortic stenosis per Cardiology. 6. Hypertensive heart disease. HOSPITAL COURSE: This pleasant gentleman presented with fever, cough, felt to have Influenza A pneumonitis with some element of myocarditis. The patient did have a 2-D echocardiogram that showed EF of 55-60 percent. Cardiology notes indicate the patient has severe aortic stenosis. We will follow up with the same. The patient was cleared by them. Patient insisted on going home, though wanted him to wait one more day. The patient did respond well to steroids, bronchodilators. The patient did have some troponin leak. Overall feeling much better. No chest pain, very keen on going home. PHYSICAL EXAMINATION: Temperature 97.8, pulse 98, respiration 20, blood pressure 145/87, pulse ox 93 percent on room air. Lungs: Improved air entry. Cardiovascular: 1st and 2nd sounds normal. CONSULTATION: Consultation with Dr. Esteves from Cardiology. DISCHARGE MEDICATIONS: 1. Acetylcysteine 5 mg p.o. daily. 2. Vitamin C 500 mg p.o. daily. 3. Vitamin D3 1000 units p.o. daily. 4. Trelegy Ellipta 100/62.5 one puff daily. 5. Multivitamin 1 tablet p.o. daily. 6. Vitamin E 100 units p.o. daily. 7. Norvasc 10 mg p.o. daily. 8. Atrovent HFA 2 puffs q.i.d. 9. Prednisone taper. FOLLOW UP: Dr. Julien on September 13, 2018. Follow up with Dr. Esteves in 1 week. Additional note: The patient did not want to take his Tamiflu after repeated request and declined the same. Copy to Dr. Julien in [place]. MMODL / IJN: [id number] /
== END 2018-09-08 17:44 | disposition home or self-care (01) | DRG 194 ==
LOC: EC 21:42 → 3SCARD 23:33
PROVIDERS: ADMIT Hospitalist; ATTEND Hospitalist
DX: J10.01 Influenza due to other identified influenza virus with the same other identified influenza virus pneumonia (principal); J44.1 Chronic obstructive pulmonary disease with (acute) exacerbation; I11.9 Hypertensive heart disease without heart failure; J10.82 Influenza due to other identified influenza virus with myocarditis; R79.89 Other specified abnormal findings of blood chemistry; I45.10 Unspecified right bundle-branch block; I35.0 Nonrheumatic aortic (valve) stenosis; Z87.891 Personal history of nicotine dependence; Z82.49 Family history of ischemic heart disease and other diseases of the circulatory system; Z79.51 Long term (current) use of inhaled steroids; Z79.899 Other long term (current) drug therapy; Z82.5 Family history of asthma and other chronic lower respiratory diseases
CPT/HCPCS: 36415; 71046; 71275; 80048; 80053; 80061; 83735; 83880; 84484; 85025; 85379; 85610; 85730; 87502; 93005; 93308; 94640; 94644; 96361; 96374; 99285

== ENCOUNTER 2018-10-15 09:32 | Day surgery (SDC) | payer BC, MEDICARE ==
[2018-10-12 09:53] VITALS: BMI 32.3
[~2018-10-15 09:32] MED LIST: ALPRAZolam 0.25 MG TAB PO PRN; ALPRAZolam 0.5 MG TAB PO PRN; ASPIRIN 325 MG TAB PO STA; ATORVASTATIN 80 MG TAB PO STA; NITROGLYCERIN SL TABS 0.4 MG TAB SUBLINGUAL PRN; SODIUM CHLORIDE 0.9% 1,000 ML in EMPTY BAG 1 BAG IV ONE
[2018-10-15] MEDS ORDERED: LIDOCAINE 1% INJ 10MG/ML (20 ML MDV) ONE (10:04)
[2018-10-15] MEDS ORDERED: fentaNYL (PF) 50 MCG/ML 2 ML AMP ONE (10:04)
[2018-10-15] MEDS ORDERED: IV FLUID CONTINUATION 1,000 ML IV ONE (10:15)
[2018-10-15 10:19] VITALS: TEMP 98.3
[2018-10-15 10:28] LABS: Basophils # (A) 0.1 k/uL (0-0.2); Basophils % (A) 1 %; Eosinophils # (A) 0.1 k/uL (0-0.7); Eosinophils % (A) 1 %; HCT 48.1 % (39.0-53.0); HGB 16.4 gm/dL (13.0-17.5); Lymphocytes # (A) 2.5 k/uL (1.0-4.8); Lymphocytes % (A) 28 %; MCHC 34.2 g/dL (31.0-37.0); Mean Platelet Volume 7.2; Monocytes # (A) 0.7 k/uL (0-1.0); Monocytes % (A) 8 %; Neutrophils # (A) 5.2 k/uL (1.3-7.7); Neutrophils % (A) 59 %; Platelet Count 187 k/uL (150-450); RBC 4.99 m/uL (4.30-5.90); RDW 12.5 % (11.5-15.5); WBC 8.8 k/uL (3.8-10.6)
[2018-10-15 10:32] LABS: MCV 96.4 fL (80.0-100.0)
[2018-10-15] MEDS ORDERED: BENZOCAINE SPRAY 1 CAN MUCOUS MEM ONE ×2 (10:35→10:41)
[2018-10-15 10:48] LABS: Anion Gap 7 mmol/L; Blood Urea Nitrogen 14 mg/dL (9-20); Calcium 10.3 mg/dL (8.4-10.2); Carbon Dioxide 29 mmol/L (22-30); Chloride 105 mmol/L (98-107); Glucose 126 mg/dL (74-99); Sodium 141 mmol/L (137-145)
[2018-10-15] MEDS ORDERED: fentaNYL (PF) 50 MCG/ML 2 ML AMP IVP ONE (10:49)
[2018-10-15] MEDS ORDERED: MIDAZOLAM 2 MG/2 ML VIAL IVP ONE ×3 (10:49→11:37)
[2018-10-15 10:56] VITALS: PULSE 95
--- NOTE | 2018-10-15 11:07 | P.TEE ---
Indications for Procedure(s): This is a 63-year-old gentleman who was recently admitted to the hospital with pneumonia and was noted to have evidence of severe aortic stenosis by transthoracic echocardiogram and clinical examination. Patient is advised to have a DONA for further evaluation of aortic stenosis. Date of Procedure: 10/15/18 Preoperative Diagnosis: Severe aortic stenosis Postoperative Diagnosis: Severe aortic stenosis Procedure(s) Performed: DONA examination Description of Procedure(s): INDICATION: This is a 63-year-old gentleman who was recently admitted to the hospital with shortness of breath and evidence of pneumonia. Clinical and echocardiographic examination was consistent with severe aortic stenosis. Patient is advised to have DONA examination for further evaluation CONSENT:. Verbal consent was obtained from the patient PROCEDURE: Patient was brought to the lab in a fasting state. He was heparin drip in the usual fashion. Patient was given a total of 3.5 mg of Versed and boluses and also 50 g of fentanyl. The throat was sprayed with a Cetacaine. A lubricated Omni probe was introduced into the oropharynx and was advanced to the esophagus. Multiple views were obtained. Patient tolerated the procedure well. Color also and continuous-wave Doppler studies were performed. Contrast saline bubble injection was also performed. FINDINGS: The aortic valve appeared to be tricuspid with severe calcification and restricted opening excursion. By planimetry valve area of about 0.6 2.8 was obtained. A peak gradient of 62 with a mean of 38 was obtained. The findings are consistent with a severe aortic stenosis. There is no evidence of any aortic regurgitation. Mitral valve showed about 2+ mitral regurgitation. The PISA value was 0.4. The left ventricular function appeared to be preserved. The left atrium is enlarged. There is mild plaque in the aorta. No clot noted in the left atrial appendage. Saline contrast bubble injection did not reveal any crossing of the bubbles into the left atrium. IMPRESSION: #1. Severe aortic stenosis. #2. Mild aortic regurgitation #3. No clot in the left atrial appendage. #3. No PFO #4. Preserved LV function. #5. Left atrial enlargement. #6. Mild plaque in the aorta PLAN: Proceed with a right and left heart catheterization. Patient may be candidate for aortic valve replacement
[2018-10-15 11:14] VITALS: RESP 18
[2018-10-15] MEDS ORDERED: LIDOCAINE 1% INJ 10MG/ML (20 ML MDV) SQ ONE (11:25)
[2018-10-15 11:58] LABS: O2 Sat Blood Gas 76.5 %
[2018-10-15 12:00] LABS: O2 Sat Blood Gas 97.7 %
[2018-10-15] MEDS ORDERED: IOPAMIDOL-370 100ML BTL INJ ONE (12:04)
[2018-10-15] MEDS ORDERED: RX INFO: IV CONTRAST WAS GIVEN 1 EACH MISC MISCELLANE PRN (12:23)
[2018-10-15] MEDS ORDERED: SODIUM CHLORIDE 0.9% 1,000 ML IV SCH (12:30)
--- NOTE | 2018-10-15 12:49 | P.CARDCATH ---
Date of Procedure: 10/15/18 Preoperative Diagnosis: Severe aortic stenosis Postoperative Diagnosis: Severe aortic stenosis by echocardiogram, single-vessel coronary artery disease. Procedure(s) Performed: Left heart catheterization without left ventriculography Description of Procedure: HISTORY: This is a 63-year-old gentleman who was recently in the hospital with increasing shortness of breath and evidence of pneumonia. At the time echocardiogram showed severe aortic stenosis with a gradient of more than 60. Patient is advised to have cardiac catheterization for definite diagnosis. Patient is advised to have a right and left heart catheterization CONSENT:I have discussed the risks, benefits and alternative therapies for the above-mentioned procedure and for both sedation/analgesia as well as necessary blood product administration, if indicated, as they pertain to this patient. The patient has indicated understanding and acceptance of the risks and procedures discussed. PROCEDURE: Patient was brought to the lab in a fasting state. Patient was given some IV sedation. RIGHT HEART CATHETERIZATION: Right heart catheterization was performed using a [place]-Anmol catheter. Patient tolerated the procedure well. Manual compression was applied for hemostasis. LEFT HEART CATHETERIZATION: The right groin is infiltrated with lidocaine and right femoral artery was entered using Seldinger technique. A 6-Hungarian catheter was left in place and selective coronary arteriography was performed. Patient tolerated the procedure well. Femoral angiogram was performed and Angio-Seal was applied for hemostasis. No immediate complications were noted and patient was transferred to [facility] in a stable condition Conscious Sedation: Versed 0.5 mg Fentanyl 0 g Duration 47minutes HEMODYNAMICS: The aortic pressure is about 140/80. Left ventricular end- diastolic pressure were not measured. The aortic valve could not be crossed. Right heart catheterization: Right atrial pressure is about 3-4. Right ventricular pressure was about 22 over 4. Pulmonary artery pressure is 22/10. Pulmonary wedge pressure is 10. Cardiac output by thermodilution is was 4.6. By Vidhi method the it is 5.8. The aortic valve could not be crossed. However by planimetry valve area of 0.6 2.8 cm. A peak gradient of more than 60 the mean of 38 was obtained on the transthoracic echo and also on transesophageal echo SELECTIVE CORONARY ARTERIOGRAPHY: LEFT MAIN: Short and patent THE LEFT ANTERIOR DESCENDING CORONARY ARTERY:. This is a fair caliber vessel with mild disease at the origin of the septal branch with 30-40% luminal narrowing. The ostium of septal branches involved with 80% stenosis. The mid to distal LAD has about 70-80% stenosis. THE LEFT CIRCUMFLEX AND IS CORONARY ARTERY: This is a dominant vessel giving rise to small OM branch and to good-sized PDA branch. Distally. The circumflex was coronary artery and branches are free of occlusive disease THE RIGHT CORONARY ARTERY:. This is small nondominant vessel LEFT VENTRICULOGRAPHY:. Not performed FINAL IMPRESSION: Single-vessel disease with a critical lesion in the mid LAD. The circumflex and right coronary artery are free of occlusive disease. Aortic valve could not be crossed' PLAN: Continue medical therapy with beta blockers, aspirin and lipid-lowering agent. Surgical consultation for aortic valve replacement and possible of bypass to the LAD. Patient may also be considered for transcatheter aortic valve replacement and stent placement of the LAD PROGNOSIS: Fair
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
[2018-10-15 16:16] VITALS: BP 162/80
[2018-10-15] MEDS ORDERED: METOPROLOL TARTRATE 25 MG TAB PO SCH (21:00)
[2018-10-16] MEDS ORDERED: ATORVASTATIN 80 MG TAB PO SCH (09:00)
[2018-10-16] MEDS ORDERED: ATORVASTATIN 20 MG TAB PO SCH (09:00)
== END 2018-10-15 17:10 | disposition home or self-care (01) ==
LOC: CATHCVL 09:32
PROVIDERS: ATTEND Internal Medicine Cardiovascular Disease
DX: I08.0 Rheumatic disorders of both mitral and aortic valves (principal); I25.10 Atherosclerotic heart disease of native coronary artery without angina pectoris; Z87.891 Personal history of nicotine dependence; I10 Essential (primary) hypertension; E78.00 Pure hypercholesterolemia, unspecified; J44.9 Chronic obstructive pulmonary disease, unspecified; Z82.49 Family history of ischemic heart disease and other diseases of the circulatory system; Z80.0 Family history of malignant neoplasm of digestive organs; Z79.51 Long term (current) use of inhaled steroids; Z79.899 Other long term (current) drug therapy; Z79.82 Long term (current) use of aspirin
CPT/HCPCS: 93312; 93320; 93325; 93456; 80048; 85018; 82810; 85025; C1760; C1769 ×3; C1894 ×2; J2250; J2001; J3010; Q9967

== ENCOUNTER → 2018-12-31 | Outpatient (CLI) | payer BC ==
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
--- NOTE | 2019-01-02 14:55 | P.VSCSTY ---
Greater Saphenous Vein Mapping This is bilateral lower extremity greater saphenous vein mapping. Date of service 12/31/2018 Vein quality and ultrasound appearance no endoluminal thrombus or wall changes are seen. Vein size groin right 5.4 x 5.5 groin left 5.6 x 5.8 High thigh right 4.2 x 3.9 high thigh left 3.7 x 3.8 Mid thigh right 4.0 x 4.3 mid thigh left 2.9 x 2.4 Above-knee right 3.6 x 3.8 above- knee left 3.0 x 2.9 Below knee right 3.6 x 3.5 below-knee left 2.6 x 2.6 Mid calf right 2.9 x 2.8 mid calf left 2.2 x 2.2 Ankle right 3.1 x 3.1 ankle left 2.6 x 2.6 Impression usable bilateral greater saphenous vein. Right may be somewhat more consistent for size.
--- NOTE | 2019-01-02 14:56 | P.ARTDOP ---
Arterial Doppler LOWER EXTREMITY ARTERIAL DOPPLER: DATE OF SERVICE: 12/31/2018 Reason for study: Preop CABG. Doppler waveforms: Multiphasic bilaterally throughout. Pulse volume recording: []. Pressure gradients: None. Ankle-brachial indices: Greater than 1 on the right and cannot be occluded on the left. Toe pressures: [] on the right, [] on the left Impression: Normal study flow hunt..
== END | disposition home or self-care (01) ==
LOC: LABPAT 09:06
PROVIDERS: ATTEND Thoracic Surgery (Cardiothoracic Vascular Surgery)
DX: Z01.818 Encounter for other preprocedural examination (principal); Z79.01 Long term (current) use of anticoagulants; Z79.899 Other long term (current) drug therapy
CPT/HCPCS: 71046; 93922; 93970

== ENCOUNTER 2019-01-07 05:33 | Inpatient (IN) | payer BC ==
[2018-12-31 09:58] LABS: HGB 15.2 gm/dL (13.0-17.5); MCH 33.1 pg (25.0-35.0); MCHC 33.7 g/dL (31.0-37.0); MCV 98.3 fL (80.0-100.0); Mean Platelet Volume 6.9; Platelet Count 205 k/uL (150-450); RBC 4.58 m/uL (4.30-5.90); RDW 12.4 % (11.5-15.5); WBC 8.3 k/uL (3.8-10.6)
[2018-12-31 10:11] LABS: Partial Thromboplastin Time 26.1 sec (22.0-30.0); Prothrombin Time 10.5 sec (9.0-12.0)
[2018-12-31 10:22] LABS: Appearance,Urine Clear (Clear); Bilirubin,Urine Negative (Negative); Blood,Urine Negative (Negative); Color,Urine Yellow; Glucose,Urine (UA) Negative (Negative); Ketones,Urine Negative (Negative); Leukocyte Esterase,Urine Negative (Negative); Nitrite,Urine Negative (Negative); PH, Urine 6.5 (5.0-8.0); Protein,Urine Negative (Negative); Specific Gravity,Urine 1.014 (1.001-1.035); Urobilinogen,Urine <2.0 mg/dL (<2.0)
[2018-12-31 10:30] LABS: ALT 80 U/L (21-72); AST 66 U/L (17-59); African American GFR (CKD) >90 (>60 ml/min/1.73 sqM); Albumin 4.6 g/dL (3.5-5.0); Alkaline Phosphatase 98 U/L (38-126); Anion Gap 14 mmol/L; Blood Urea Nitrogen 12 mg/dL (9-20); Calcium 9.9 mg/dL (8.4-10.2); Carbon Dioxide 23 mmol/L (22-30); Chloride 101 mmol/L (98-107); Cholesterol 176 mg/dL (<200); Glucose 187 mg/dL (74-99); HDL Cholesterol 75 mg/dL (40-60); LDL Cholesterol,Calculated 87 mg/dL (0-99); Magnesium 1.8 mg/dL (1.6-2.3); Potassium 4.5 mmol/L (3.5-5.1); Sodium 138 mmol/L (137-145); Total Bilirubin 0.6 mg/dL (0.2-1.3); Total Protein 7.8 g/dL (6.3-8.2); Triglycerides 68 mg/dL (<150)
[2018-12-31 16:40] LABS: Hepatitis A Antibody IgM Non-Reactive (Non-Reactive); Hepatitis B Core IgM Non-Reactive (Non-Reactive)
[2018-12-31 17:08] LABS: Hemoglobin A1C 5.8 % (4.0-6.0)
--- NOTE | 2019-01-02 15:32 | P.PN ---
Progress Note - Text Progress Note Date: 01/02/19 The STS risk score has been calculated in discussed with the patient by Dr. Eben Wallace
[~2019-01-07 05:33] MED LIST changes: +ALBUMIN HUMAN 25% 50 ML IV ONE; -ALPRAZolam 0.25 MG TAB PO PRN; -ALPRAZolam 0.5 MG TAB PO PRN; +ASPIRIN 325 MG TAB PO ONE; -ASPIRIN 325 MG TAB PO STA; +ATORVASTATIN 10 MG TAB PO ONE; -ATORVASTATIN 80 MG TAB PO STA; +CALCIUM CHLORIDE 100 MG/ML 10 ML SYRINGE IV ONE; +CARDIOPLEGIC SOLN (K+ 16 MEQ/L 1,000 ML with SODIUM BICARB (1 MEQ/ML) 20 ML, LIDOCAINE ... PERFUSION ONE; +CHLORHEXIDINE GLUCONATE 15 ML CUP MUCOUS MEM ONE; +CLEVIDIPINE BUTYRATE 25 MG in EMPTY BAG 1 BAG IV ONE; +HEPARIN SODIUM 1,000 UN/ML (10ML VL) IV ONE; +HEPARIN SODIUM,PORCINE 5,000 UNIT in SODIUM CHLORIDE 0.9% 500 ML 500 ML IV ONE; +INSULIN REGULAR 100 UNIT in SODIUM CHLORIDE 0.9% 100 ML IV ONE; +LACTATED RINGERS 1,000 ML IV ONE; +MAGNESIUM SULFATE MG 500 MG/ML IV ONE; +MANNITOL 25% 12.5 GM/50 ML VIAL IV ONE; +METOPROLOL TARTRATE 12.5 MG TAB PO ONE; -NITROGLYCERIN SL TABS 0.4 MG TAB SUBLINGUAL PRN; +NITROGLYCERIN-D5W PMX 25 MG/250 ML BTL IV ONE; +NITROGLYCERIN-D5W PMX 50 MG in DEXTROSE/WATER 1 250ML.BAG IV ONE; +NOREPINEPHRINE 4 MG in SODIUM CHLORIDE 0.9% 250 ML IV ONE; +PAPAVERINE 360 MG in SODIUM CHLORIDE 0.9% 90 ML IV ONE; +PHENYLEPHRINE 10 MG/ML VIAL IV ONE; +PHENYLEPHRINE 40 MG in SODIUM CHLORIDE 0.9% 250 ML IV ONE; +PROPOFOL 1,000 MG/100 ML VIAL IV ONE; +PROTAMINE SULFATE 10 MG/ML 25 ML VIAL IV ONE; +PROTAMINE SULFATE 250 MG in EMPTY BAG 1 BAG IV ONE; +SODIUM BICARB 8.4% 50 ML SYR (1 MEQ/ML) IV ONE; +SODIUM CHLORIDE 0.9% 1,000 ML IV ONE; -SODIUM CHLORIDE 0.9% 1,000 ML in EMPTY BAG 1 BAG IV ONE; +TRANEXAMIC ACID 2,000 MG in SODIUM CHLORIDE 0.9% 80 ML IV ONE; +ceFAZolin 1,000 MG in SODIUM CHLORIDE 0.9% IRRIGATIO 1,000 ML IRRIGATION ONE; +ceFAZolin 2,000 MG in SODIUM CHLORIDE 0.9% 30 ML IVPB ONE; +ceFAZolin IN SWFI 2 GM/20 ML SYRINGE IVP ONE
[2019-01-07 06:38] LABS: Glucose,Whole Blood 123 mg/dL (75-99)
[2019-01-07] MEDS ORDERED: TRANEXAMIC ACID 1,000 MG/10 ML VIAL ONE (07:34)
[2019-01-07] MEDS ORDERED: PROPOFOL 10 MG/ML 20 ML VIAL IV ONE (07:34)
[2019-01-07] MEDS ORDERED: PROTAMINE SULFATE 10 MG/ML 5 ML VIAL IV ONE (07:34)
[2019-01-07] MEDS ORDERED: ALBUMIN HUMAN 5% (12.5gm) 250 ML BOTTLE IVPB ONE ×2 (07:34→20:15)
[2019-01-07] MEDS ORDERED: fentaNYL (PF) 50 MCG/ML 2 ML AMP ONE ×2 (07:34→20:15)
[2019-01-07] MEDS ORDERED: HEPARIN SODIUM,PORCINE 10,000 UNIT/ML 1 ML VIAL ONE (07:34)
[2019-01-07] MEDS ORDERED: fentaNYL (PF) 50 MCG/ML 50 ML VIAL ONE (07:34)
[2019-01-07] MEDS ORDERED: MIDAZOLAM 2 MG/2 ML VIAL ONE ×2 (07:34→20:15)
[2019-01-07] MEDS ORDERED: NITROGLYCERIN-D5W PMX 50 MG/250 ML BOTTLE IV ONE (07:34)
[2019-01-07] MEDS ORDERED: SODIUM CHLORIDE 0.9% 250 ML BAG ONE (07:34)
[2019-01-07] MEDS ORDERED: VECURONIUM 10 MG VIAL IV ONE ×2 (07:34→20:15)
[2019-01-07 08:31] LABS: ABG Base Excess -2.3 mmol/L; ABG Glucose Whole Blood 131 mg/dL (75-99); ABG HCO3 22 mmol/L (21-25); ABG Hematocrit 43 % (34.0-46.0); ABG Ionized Calcium 4.5 mg/dL (4.5-5.3); ABG Lactic Acid Whole Blood 1.1 mmol/L (0.5-1.6); ABG Oxygen Saturation 99.2 % (94-97); ABG PCO2 36 mmHg (35-45); ABG PO2 120 mmHg (83-108); ABG Potassium Whole Blood 3.8 mmol/L (3.4-4.5); ABG Sodium Whole Blood 138 mmol/L (135-146); ABG TCO2 23 mmol/L (19-24)
[2019-01-07 10:03] LABS: ABG Base Excess -3.2 mmol/L; ABG Glucose Whole Blood 143 mg/dL (75-99); ABG HCO3 22 mmol/L (21-25); ABG Hematocrit 40 % (34.0-46.0); ABG Ionized Calcium 4.6 mg/dL (4.5-5.3); ABG Oxygen Saturation 99.9 % (94-97); ABG PCO2 40 mmHg (35-45); ABG PH 7.35 (7.35-7.45); ABG PO2 179 mmHg (83-108); ABG Potassium Whole Blood 4.3 mmol/L (3.4-4.5); ABG Sodium Whole Blood 138 mmol/L (135-146); ABG TCO2 23 mmol/L (19-24)
[2019-01-07 10:38] LABS: ABG Base Excess -1.8 mmol/L; ABG Glucose Whole Blood 119 mg/dL (75-99); ABG HCO3 24 mmol/L (21-25); ABG Hematocrit 27 % (34.0-46.0); ABG Ionized Calcium 4.3 mg/dL (4.5-5.3); ABG Lactic Acid Whole Blood 0.8 mmol/L (0.5-1.6); ABG PCO2 43 mmHg (35-45); ABG PH 7.35 (7.35-7.45); ABG PO2 262 mmHg (83-108); ABG Potassium Whole Blood 4.4 mmol/L (3.4-4.5); ABG Sodium Whole Blood 136 mmol/L (135-146); ABG TCO2 25 mmol/L (19-24)
[2019-01-07 11:10] LABS: ABG Base Excess -2.1 mmol/L; ABG Glucose Whole Blood 122 mg/dL (75-99); ABG HCO3 24 mmol/L (21-25); ABG Hematocrit 28 % (34.0-46.0); ABG Ionized Calcium 4.3 mg/dL (4.5-5.3); ABG Lactic Acid Whole Blood 0.8 mmol/L (0.5-1.6); ABG PCO2 46 mmHg (35-45); ABG PH 7.32 (7.35-7.45); ABG PO2 354 mmHg (83-108); ABG Potassium Whole Blood 4.9 mmol/L (3.4-4.5); ABG Sodium Whole Blood 136 mmol/L (135-146); ABG TCO2 25 mmol/L (19-24)
[2019-01-07 12:47] LABS: ABG Base Excess -3.5 mmol/L; ABG Glucose Whole Blood 99 mg/dL (75-99); ABG HCO3 21 mmol/L (21-25); ABG Hematocrit 28 % (34.0-46.0); ABG Ionized Calcium 3.8 mg/dL (4.5-5.3); ABG Lactic Acid Whole Blood 1.3 mmol/L (0.5-1.6); ABG Oxygen Saturation 99.1 % (94-97); ABG PCO2 32 mmHg (35-45); ABG PH 7.41 (7.35-7.45); ABG PO2 110 mmHg (83-108); ABG Sodium Whole Blood 139 mmol/L (135-146); ABG TCO2 22 mmol/L (19-24)
[2019-01-07] MEDS ORDERED: Potassium Replacement Protocol 1 EACH MISC MISCELLANE PRN (13:02)
[2019-01-07] MEDS ORDERED: Phosphorus Replacement Protoco 1 EACH MISC MISCELLANE PRN (13:02)
[2019-01-07] MEDS ORDERED: Magnesium Replacement Protocol 1 EACH MISC MISCELLANE PRN (13:02)
[2019-01-07] MEDS ORDERED: AMIODARONE 360 MG in DEXTROSE 5% IN WATER 200 ML IV PRN ×2 (13:02)
[2019-01-07] MEDS ORDERED: NITROGLYCERIN-D5W PMX 50 MG in DEXTROSE/WATER 1 250ML.BAG IV SCH (13:02)
[2019-01-07] MEDS ORDERED: BENZOCAINE/MENTHOL LOZENG 1 EACH LOZENGE MUCOUS MEM PRN (13:02)
[2019-01-07] MEDS ORDERED: DEXTROSE 5% IN WATER 100 ML with AMIODARONE 150 MG IV PRN (13:02)
[2019-01-07] MEDS ORDERED: CALCIUM GLUCONATE 2 GM in SODIUM CHLORIDE 0.9% 100 ML IVPB PRN (13:02)
[2019-01-07] MEDS ORDERED: AMIODARONE 300 MG in DEXTROSE 5% IN WATER 250 ML IV PRN ×2 (13:02)
[2019-01-07] MEDS ORDERED: IPRATROPIUM-ALBUTEROL 3 ML NEB INHALATION PRN (13:02)
[2019-01-07] MEDS ORDERED: ONDANSETRON 4 MG/2 ML VIAL IVP PRN (13:02)
--- NOTE | 2019-01-07 13:23 | P.OP ---
Date of Procedure: 01/07/19 Preoperative Diagnosis: Aortic valve stenosis, coronary artery disease Postoperative Diagnosis: Same Procedure(s) Performed: Aortic valve replacement with 23 mm of Avalus bovine pericardial valve, CABG 1 with GILL to LAD, ligation of left atrial appendage with 35 mm AtriCure clip, epi-aortic ultrasonography. Implants: 35 mm AtriCure clip, 23 mm bovine pericardial valve Anesthesia: GETA Surgeon: Eben Wallace Test Inspection Engineer #1: Rodolfo Donnelly Estimated Blood Loss (ml): 400 IV fluids (ml): 2,000 Urine output (ml): 500 Pathology: other (Aortic valve) Condition: stable Disposition: ICU Indications for Procedure: 63-year-old male presents with worsening dyspnea found to have severe aortic stenosis in stenosis of the midLAD. He was low risk for surgical valve implant. Discussion was held with the patient of TAVR versus SAVR the patient opted to undergo surgical aortic valve replacement. Patient requested tissue valve as he did not wish to be placed on long-term Coumadin. Elective surgery was scheduled. Operative Findings: The left internal mammary artery was densely fibrosed to the chest wall and was very difficult to harvest however successful harvest was achieved and the vessel had excellent flow. Epi-aortic ultrasonography revealed lateral plaque in the distal ascending aorta. On exploration the aortic valve was heavily calcific with partial fusion of the commissure between the right and non-coronary sinuses of Valsalva. Completion echocardiography demonstrated no evidence of aortic insufficiency, excellent opening of the aortic valve with no significant gradient. Description of Procedure: The patient was brought to the operating room, placed supine on the operating table, anesthetized and intubated. [place]-Anmol catheter had been placed via the right internal jugular approach. [place] and nasogastric tube in DONA probe were placed after intubation. The anterior torso and lower extremities were james rilely prepped and draped. Right femoral arterial line was placed For the time being. Midline sternotomy was then performed. Left hemisternum was retracted upwards. The left internal mammary artery was harvested on a vascularized pedicle left intact on its origin from the subclavian. Dissection was quite difficult as the artery was densely fibrosed to the chest wall however successful takedown was achieved left pleural space was drained with 32-Tristanian chest tube. Standard sternal retractor was placed. Pericardium was opened in the midline and the heart was exposed pericardial sutures. Epi-aortic ultrasonography was performed with findings as noted above. Patient was systemically heparinized. Aortic cannulation sutures were placed in the distal ascending aorta away from the area of calcification. Venous cannulation suture was placed in the right atrial appendage. Patient was cannulated for carpal be bypass 7 mm soft flow cannula in the distal ascending aorta and a two-stage venous cannula through the right atrium into the inferior vena cava. Antegrade and retrograde cardioplegia lines were placed in standard fashion. The patient was placed on cardiopulmonary bypass and stabilized. Pursestring suture was placed in the right superior pulmonary vein. Aorta was crossclamped and the heart was arrested with cold crystalloid antegrade cardioplegia. The LAD was exposed it was explored. Plans were made to grafted just after its midportion in the middle third beyond the obvious disease. The end of the GILL was prepared. The LAD was opened and the mid LAD anastomosis was performed with running 7-0 Prolene suture. 1.5 mm probe easily passed into the vessel following the anastomosis. Suture was tied with good result and hemostasis and inflow remained occluded. A left atrial vent was placed through the right superior pulmonary vein. The aorta was opened transversely and the aortic valve was exposed. Was a heavily calcified valve with findings as noted above. It was excised. The annulus decalcified. Circumferential valve sutures of 2-0 Tycron were placed with pledgets on the ventricular side. The annulus was sized and a 23 mm Avalus roving pericardial valve was appropriately washed and brought up onto the field. Valve sutures were placed in the sewing ring of the valve and it was seated without difficulty. Sutures were tied and cut and the valve was noted to seat well. Copious irrigation of been performed during debridement after suture placement and was again performed at the valve was implanted. We now closed the aortotomy with a 2 layer running closure of 4-0 Prolene suture. This was reinforced with some pro-gel. Left atrial vent was removed and the cross-clamp was removed. Retrograde cardioplegia line was removed and atrial an d ventricular pacing wires were placed and the patient was paced. A 35 mm AtriCure was applied to the base of the left atrial appendage. The heart was de-aired with DONA guidance and then the aortic vent was removed and reinforced with 40 pledgeted Prolene suture. Patient was weaned from cardiopulmonary bypass without the use of inotropic support. Volume resuscitation was given, the pump was returned to the patient and the patient stabilized nicely. The patient was decannulated in standard fashion. Heparin had been reversed with protamine and good hemostasis was obtained throughout. DONA demonstrated excellent findings with findings as noted above. Mediastinum was drained with 236-Tristanian chest tubes and irrigated with antibiotic solution. Sternum was closed with 8 sternal wires. The fascia was closed with 0 Ethibond subcutaneous and subcuticular layers with layers of Vicryl suture. Dry sterile dressings were applied the patient was transferred to the ICU in stable hemodynamic condition on no inotropic support having received no blood transfusions.
[2019-01-07] MEDS: PROPOFOL 1,000 MG in EMPTY BAG 1 BAG IV SCH (13:30)
[2019-01-07] MEDS: LACTATED RINGERS 1,000 ML IV SCH (13:30)
[2019-01-07 13:50] LABS: Basophils % (A) 0 %; Eosinophils # (A) 0.1 k/uL (0-0.7); Eosinophils % (A) 2 %; HCT 25.2 % (39.0-53.0); Lymphocytes # (A) 1.5 k/uL (1.0-4.8); Lymphocytes % (A) 21 %; MCH 33.8 pg (25.0-35.0); MCHC 34.2 g/dL (31.0-37.0); MCV 98.9 fL (80.0-100.0); Mean Platelet Volume 7.8; Monocytes # (A) 0.4 k/uL (0-1.0); Monocytes % (A) 5 %; Neutrophils # (A) 5.1 k/uL (1.3-7.7); Neutrophils % (A) 71 %; RBC 2.55 m/uL (4.30-5.90); RDW 12.7 % (11.5-15.5); WBC 7.1 k/uL (3.8-10.6)
[2019-01-07 13:55] LABS: Glucose,Whole Blood 106 mg/dL (75-99)
[2019-01-07 14:04] LABS: Ionized Calcium 5.1 mg/dL (4.5-5.3)
[2019-01-07 14:11] LABS: ALT 56 U/L (21-72); AST 53 U/L (17-59); African American GFR (CKD) >90 (>60 ml/min/1.73 sqM); Albumin 2.6 g/dL (3.5-5.0); Alkaline Phosphatase 38 U/L (38-126); Anion Gap 5 mmol/L; Blood Urea Nitrogen 9 mg/dL (9-20); Calcium 8.2 mg/dL (8.4-10.2); Carbon Dioxide 23 mmol/L (22-30); Chloride 110 mmol/L (98-107); Glucose 93 mg/dL (74-99); Magnesium 3.8 mg/dL (1.6-2.3); Potassium 4.1 mmol/L (3.5-5.1); Sodium 138 mmol/L (137-145); Total Protein 4.3 g/dL (6.3-8.2)
[2019-01-07 14:13] LABS: INR 1.3 (<1.2); Partial Thromboplastin Time 47.8 sec (22.0-30.0); Prothrombin Time 13.2 sec (9.0-12.0)
[2019-01-07 14:19] LABS: Glucose,Whole Blood 119 mg/dL (75-99)
--- NOTE | 2019-01-07 14:21 | XR ---
EXAMINATION TYPE: XR chest 1V portable DATE OF EXAM: 01/07/2019 COMPARISON: 12/31/2018 HISTORY: Post cardiac surgery TECHNIQUE: Single frontal view of the chest is obtained. FINDINGS: There is postoperative change with bilateral consolidation and pleural effusion. Chronic r ib deformities are noted. Arthropathy of the shoulders. There is left apical pleural thickening which is increased from the prior exam. This may be postsurgi ayesha. No sizable pneumothorax. ET tube is approximately 4 cm above the salomón. [place]-Anmol catheter seen with the tip overlying the pr oximal left pulmonary outflow tract. NG tube seen coursing into the abdomen. IMPRESSION: 1. Postsurgical change with bilateral infiltrate and pleural effusion. Mild central venous congestion suspected.
[2019-01-07 14:23] LABS: ABG HCO3 25 mmol/L (21-25); ABG Oxygen Saturation 99.9 % (94-97); ABG PCO2 46 mmHg (35-45); ABG PH 7.34 (7.35-7.45); ABG PO2 256 mmHg (83-108); ABG TCO2 26 mmol/L (19-24); Allen Test Performed? Yes
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
[2019-01-07 14:33] LABS: HGB 8.6 gm/dL (13.0-17.5)
[2019-01-07 14:58] LABS: Platelet Count 90 k/uL (150-450)
[2019-01-07] MEDS: ALBUMIN HUMAN 5% 250 ML in EMPTY BAG 1 BAG IVPB PRN ×4 (15:01→19:00)
[2019-01-07 15:37] LABS: Glucose,Whole Blood 169 mg/dL (75-99)
[2019-01-07] MEDS ORDERED: IPRATROPIUM-ALBUTEROL 3 ML NEB INHALATION SCH (16:00)
[2019-01-07 16:19] LABS: Glucose,Whole Blood 207 mg/dL (75-99)
[2019-01-07] MEDS: INSULIN REGULAR 100 UNIT in SODIUM CHLORIDE 0.9% 100 ML IV SCH (16:39)
[2019-01-07] MEDS: ceFAZolin IN SWFI 2 GM/20 ML SYRINGE IVP SCH (16:45)
[2019-01-07 17:19] LABS: Glucose,Whole Blood 211 mg/dL (75-99)
[2019-01-07 18:40] LABS: Glucose,Whole Blood 170 mg/dL (75-99)
[2019-01-07 19:40] LABS: Anisocytosis Slight; Basophils % (A) 0 %; Eosinophils % (A) 0 %; Lymphocytes % (A) 11 %; MCH 30.8 pg (25.0-35.0); MCHC 33.1 g/dL (31.0-37.0); Mean Platelet Volume 7.2; Monocytes # (A) 0.6 k/uL (0-1.0); Monocytes % (A) 6 %; Neutrophils # (A) 7.8 k/uL (1.3-7.7); Neutrophils % (A) 82 %; Platelet Count 112 k/uL (150-450); RBC 1.72 m/uL (4.30-5.90); RDW 16.9 % (11.5-15.5); WBC 9.5 k/uL (3.8-10.6)
[2019-01-07 19:48] LABS: INR 1.1 (<1.2); Prothrombin Time 11.2 sec (9.0-12.0)
[2019-01-07 19:49] LABS: Partial Thromboplastin Time 25.3 sec (22.0-30.0)
[2019-01-07 19:49] LABS: Glucose,Whole Blood 176 mg/dL (75-99)
[2019-01-07 19:53] LABS: HGB 5.3 gm/dL (13.0-17.5); MCV 93.1 fL (80.0-100.0)
[2019-01-07] MEDS ORDERED: CARDIOPLEGIC SOLN (K+ 16 MEQ/L 1,000 ML with SODIUM BICARB (1 MEQ/ML) 20 ML, LIDOCAINE ... PERFUSION ONE ×3 (20:00)
[2019-01-07 20:09] LABS: Ionized Calcium 4.4 mg/dL (4.5-5.3)
[2019-01-07] MEDS ORDERED: SODIUM CHLORIDE 0.9% IRRIG 1,000 ML BTL IRRIGATION ONE (20:15)
[2019-01-07 20:20] LABS: ALT 42 U/L (21-72); AST 46 U/L (17-59); African American GFR (CKD) >90 (>60 ml/min/1.73 sqM); Albumin 3.1 g/dL (3.5-5.0); Alkaline Phosphatase 36 U/L (38-126); Anion Gap 9 mmol/L; Blood Urea Nitrogen 11 mg/dL (9-20); Calcium 7.7 mg/dL (8.4-10.2); Carbon Dioxide 24 mmol/L (22-30); Chloride 107 mmol/L (98-107); Glucose 158 mg/dL (74-99); Magnesium 2.9 mg/dL (1.6-2.3); Phosphorus 3.1 mg/dL (2.5-4.5); Potassium 3.9 mmol/L (3.5-5.1); Sodium 140 mmol/L (137-145); Total Bilirubin 1.4 mg/dL (0.2-1.3); Total Protein 4.9 g/dL (6.3-8.2)
[2019-01-07] MEDS: IPRATROPIUM-ALBUTEROL 3 ML NEB INHALATION SCH (20:43)
[2019-01-07 20:52] LABS: ABG Base Excess -4.9 mmol/L; ABG Glucose Whole Blood 199 mg/dL (75-99); ABG HCO3 21 mmol/L (21-25); ABG PCO2 41 mmHg (35-45); ABG PH 7.32 (7.35-7.45); ABG PO2 253 mmHg (83-108); ABG Potassium Whole Blood 4.2 mmol/L (3.4-4.5); ABG Sodium Whole Blood 141 mmol/L (135-146); ABG TCO2 22 mmol/L (19-24)
[2019-01-07] MEDS ORDERED: ceFAZolin 1,000 MG in SODIUM CHLORIDE 0.9% 1,000 ML IRRIGATION ONE (21:14)
[2019-01-07 21:17] LABS: ABG Hematocrit 20 % (34.0-46.0); ABG Lactic Acid Whole Blood 4.5 mmol/L (0.5-1.6)
--- NOTE | 2019-01-07 21:43 | P.OP ---
Date of Procedure: 01/07/19 Preoperative Diagnosis: Postoperative hemorrhage Postoperative Diagnosis: Same Procedure(s) Performed: Sternal exploration with repair of hole in Right atrium Anesthesia: MARYLIN Surgeon: Eben Wallace Stone Circular Sawyer #1: Rodolfo Donnelly Stone Circular Sawyer #2: Bam Nuñez Estimated Blood Loss (ml): 500 IV fluids (ml): 1,000 Urine output (ml): 200 Pathology: none sent Condition: critical Disposition: ICU Indications for Procedure: Patient is 63-year-old male who underwent relatively uncomplicated aortic valve replacement and GILL to LAD earlier today. He has a history of Chronic hepatitis C as well as mildly elevated LFTs preoperatively. He left the OR without any's evidence of bleeding but developed some losing in the first hour after leaving the operating room. He was given some fresh frozen and platelets for mildly elevated PT PTT and low platelet count and was also given some cryoprecipitate for a low fibrinogen. Seem to respond to this treatment and the bleeding slowed but then at 7:00 he developed a large amount of bleeding. He is brought back to the operating room urgently for this. Operative Findings: On reexploring the sternotomy there was evidence of a fair amount of dark clotted blood in the area of the right atrium. On removing this was evident that there was a active bleed from the right atrium at the previous retrograde cannulation site. This was pared with a 40 pledgeted Prolene suture. It should be noted that this area was checked 3 times prior to closing and was not bleeding at that time earlier in the day. Full exploration of the chest was performed. There was some bloody fluid present in the right pleural space and this was drained with a 32-Polish chest tube which had not been placed earlier in the day. Description of Procedure: Patient was brought to the operating room, placed supine on the operating table, general anesthesia was induced. Previous dressings were removed. The chest and right groin were sterilely prepped and draped. Healed sternotomy incision was opened. Sternal wires were removed. This mediastinum was explored and some clot was noted by the right atrium. On removing this was evident that there was bleeding from the previous retrograde cardioplegia site. This was repaired with a single 40 pledgeted Prolene suture. This led to good hemostasis. The entire chest was explored. There was some bloody fluid present in the right pleural space and this was drained with a 32-Polish chest tube. This is brought out through separate stab incision and connected to a separate Pleur-evac. After completely exploring the chest and making sure we had good hemostasis, the chest was irrigated with antibiotic solution and the sternum reclosed with 8 sternal wires. Fascia was closed with 0 Ethibond. Subcutaneous and subcuticular layers were closed with layers of Vicryl suture. Dry sterile dressings were applied the patient was transferred back to ICU. Patient did receive 4 units of packed red blood cells intraoperatively.
[2019-01-07] MEDS ORDERED: MUPIROCIN 2% OINT 22 GM TUBE NASAL ONE (21:45)
[2019-01-07 22:22] LABS: Glucose,Whole Blood 175 mg/dL (75-99)
[2019-01-07 22:23] LABS: Basophils % (A) 0 %; Eosinophils % (A) 1 %; HCT 23.9 % (39.0-53.0); Lymphocytes # (A) 0.5 k/uL (1.0-4.8); Lymphocytes % (A) 7 %; MCH 29.8 pg (25.0-35.0); MCHC 33.4 g/dL (31.0-37.0); MCV 89.4 fL (80.0-100.0); Mean Platelet Volume 8.5; Monocytes # (A) 0.4 k/uL (0-1.0); Monocytes % (A) 5 %; Neutrophils # (A) 5.6 k/uL (1.3-7.7); Neutrophils % (A) 86 %; Platelet Count 105 k/uL (150-450); RBC 2.68 m/uL (4.30-5.90); RDW 15.1 % (11.5-15.5); WBC 6.6 k/uL (3.8-10.6)
[2019-01-07 22:31] LABS: Ionized Calcium 4.8 mg/dL (4.5-5.3)
[2019-01-07 22:37] LABS: African American GFR (CKD) >90 (>60 ml/min/1.73 sqM); Anion Gap 6 mmol/L; Blood Urea Nitrogen 11 mg/dL (9-20); Carbon Dioxide 23 mmol/L (22-30); Chloride 110 mmol/L (98-107); Glucose 155 mg/dL (74-99); Magnesium 2.5 mg/dL (1.6-2.3); Phosphorus 3.8 mg/dL (2.5-4.5); Potassium 4.5 mmol/L (3.5-5.1); Sodium 139 mmol/L (137-145)
[2019-01-07 22:44] LABS: INR 1.3 (<1.2); Partial Thromboplastin Time 32.5 sec (22.0-30.0); Prothrombin Time 13.1 sec (9.0-12.0)
[2019-01-07 23:01] LABS: ABG Base Excess -1.2 mmol/L; ABG HCO3 24 mmol/L (21-25); ABG Oxygen Saturation 97.3 % (94-97); ABG PCO2 38 mmHg (35-45); ABG PO2 78 mmHg (83-108); ABG TCO2 25 mmol/L (19-24); Allen Test Performed? Yes
[2019-01-07 23:18] LABS: Glucose,Whole Blood 184 mg/dL (75-99)
[2019-01-08 00:17] LABS: Glucose,Whole Blood 179 mg/dL (75-99)
[2019-01-08] MEDS: ACETAMINOPHEN IV (For NPO) 1,000 MG in EMPTY BAG 1 BAG IVPB SCH ×3 (00:21→10:18)
[2019-01-08] MEDS: HEPARIN SODIUM,PORCINE 5,000 UNIT/ML 1 ML VIAL SQ SCH ×4 (00:21→19:35)
[2019-01-08] MEDS: ceFAZolin IN SWFI 2 GM/20 ML SYRINGE IVP SCH ×2 (00:22→10:19)
[2019-01-08 00:29] LABS: Basophils % (A) 0 %; Eosinophils % (A) 0 %; Lymphocytes # (A) 0.4 k/uL (1.0-4.8); Lymphocytes % (A) 9 %; MCH 30.3 pg (25.0-35.0); MCHC 34.2 g/dL (31.0-37.0); MCV 88.4 fL (80.0-100.0); Mean Platelet Volume 8.3; Monocytes # (A) 0.1 k/uL (0-1.0); Monocytes % (A) 3 %; Neutrophils # (A) 4.3 k/uL (1.3-7.7); Neutrophils % (A) 87 %; RBC 2.21 m/uL (4.30-5.90); RDW 15.5 % (11.5-15.5); WBC 4.9 k/uL (3.8-10.6)
[2019-01-08 00:41] LABS: HCT 19.5 % (39.0-53.0)
[2019-01-08 00:42] LABS: HGB 6.7 gm/dL (13.0-17.5); Platelet Count 86 k/uL (150-450)
[2019-01-08] MEDS: PROPOFOL 1,000 MG in EMPTY BAG 1 BAG IV SCH ×2 (00:44→06:02)
[2019-01-08] MEDS ORDERED: NOREPINEPHRINE 4 MG in SODIUM CHLORIDE 0.9% 250 ML IV SCH (01:00)
[2019-01-08 01:12] LABS: Glucose,Whole Blood 152 mg/dL (75-99)
[2019-01-08 02:28] LABS: Glucose,Whole Blood 128 mg/dL (75-99)
[2019-01-08 03:24] LABS: Glucose,Whole Blood 122 mg/dL (75-99)
[2019-01-08 04:21] LABS: Glucose,Whole Blood 130 mg/dL (75-99)
[2019-01-08 05:23] LABS: Glucose,Whole Blood 110 mg/dL (75-99)
[2019-01-08 06:08] LABS: Glucose,Whole Blood 118 mg/dL (75-99)
[2019-01-08 06:24] LABS: Basophils % (A) 0 %; Eosinophils % (A) 1 %; HCT 23.4 % (39.0-53.0); HGB 8.1 gm/dL (13.0-17.5); Lymphocytes # (A) 1.3 k/uL (1.0-4.8); Lymphocytes % (A) 23 %; MCH 30.5 pg (25.0-35.0); MCHC 34.6 g/dL (31.0-37.0); MCV 88.2 fL (80.0-100.0); Mean Platelet Volume 8.2; Monocytes # (A) 0.4 k/uL (0-1.0); Monocytes % (A) 7 %; Neutrophils # (A) 3.6 k/uL (1.3-7.7); Neutrophils % (A) 67 %; RBC 2.66 m/uL (4.30-5.90); RDW 14.9 % (11.5-15.5); WBC 5.4 k/uL (3.8-10.6)
[2019-01-08 06:25] LABS: Platelet Count 75 k/uL (150-450)
[2019-01-08 06:27] LABS: Ionized Calcium 4.7 mg/dL (4.5-5.3)
[2019-01-08 06:35] LABS: ALT 42 U/L (21-72); AST 62 U/L (17-59); African American GFR (CKD) >90 (>60 ml/min/1.73 sqM); Albumin 3.1 g/dL (3.5-5.0); Alkaline Phosphatase 34 U/L (38-126); Anion Gap 5 mmol/L; Blood Urea Nitrogen 12 mg/dL (9-20); Carbon Dioxide 27 mmol/L (22-30); Chloride 108 mmol/L (98-107); Glucose 105 mg/dL (74-99); Magnesium 2.4 mg/dL (1.6-2.3); Potassium 4.2 mmol/L (3.5-5.1); Sodium 140 mmol/L (137-145); Total Protein 4.9 g/dL (6.3-8.2)
[2019-01-08 07:16] LABS: ABG Base Excess 3.5 mmol/L; ABG HCO3 27 mmol/L (21-25); ABG Oxygen Saturation 99.4 % (94-97); ABG PCO2 34 mmHg (35-45); ABG PO2 127 mmHg (83-108); ABG TCO2 28 mmol/L (19-24)
[2019-01-08 07:22] LABS: Glucose,Whole Blood 116 mg/dL (75-99)
[2019-01-08] MEDS: IPRATROPIUM-ALBUTEROL 3 ML NEB INHALATION SCH ×4 (07:22→19:03)
[2019-01-08] MEDS ORDERED: LORazepam 2 MG/ML INJ IV PRN ×2 (07:39)
[2019-01-08] MEDS ORDERED: THIAMINE 100 MG/ML 2 ML VIAL IM STA (07:42)
--- NOTE | 2019-01-08 08:03 | XR ---
EXAMINATION TYPE: XR chest 1V portable DATE OF EXAM: 01/08/2019 COMPARISON: 01/07/2019 HISTORY: Post cardiac surgery TECHNIQUE: Single frontal view of the chest is obtained. FINDINGS: Bilateral consolidation and pleural effusion stable. Cardiomegaly noted. Chronic rib cage deformities are seen. No sizable pneumothorax. ET, NG tube, bilateral chest tube, the style drain, and [place]-Anmol catheter stable. IMPRESSION: 1. Stable postoperative change with diffuse pleural-parenchymal changes similar to the prior exam. Ma y represent postoperative atelectasis with pleural effusion. Underlying pneumonia or CHF in the diffe rential diagnosis.
[2019-01-08 08:36] LABS: Glucose,Whole Blood 130 mg/dL (75-99)
[2019-01-08] MEDS ORDERED: CLOPIDOGREL 75 MG TAB PO SCH (09:00)
[2019-01-08] MEDS ORDERED: MAGNESIUM HYDROXIDE 2,400 MG/10 ML CUP PO PRN (09:00)
[2019-01-08] MEDS ORDERED: PANTOPRAZOLE 40 MG/10 ML VIAL IVP SCH (09:00)
[2019-01-08] MEDS ORDERED: METOPROLOL TARTRATE 12.5 MG TAB PO SCH (09:00)
[2019-01-08] MEDS: ASPIRIN 325 MG TAB PO SCH (09:32)
[2019-01-08] MEDS: FOLIC ACID 1 MG TAB PO SCH (09:33)
[2019-01-08] MEDS: MULTIVITAMINS, THERA 1 EACH TAB PO SCH (09:33)
[2019-01-08] MEDS: ATORVASTATIN 40 MG TAB PO SCH (09:33)
[2019-01-08] MEDS: LACTATED RINGERS 1,000 ML IV SCH (09:34)
[2019-01-08] MEDS: ALBUMIN HUMAN 5% 250 ML in EMPTY BAG 1 BAG IVPB PRN (09:40)
[2019-01-08 10:32] LABS: Glucose,Whole Blood 131 mg/dL (75-99)
[2019-01-08 10:50] LABS: ABG Base Excess 2.3 mmol/L; ABG HCO3 27 mmol/L (21-25); ABG Oxygen Saturation 95.3 % (94-97); ABG PCO2 40 mmHg (35-45); ABG PH 7.43 (7.35-7.45); ABG PO2 69 mmHg (83-108); ABG TCO2 28 mmol/L (19-24)
--- NOTE | 2019-01-08 11:24 | P.PN ---
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 for hemoglobin of 6.7, continue GI and DVT prophylaxis. We'll continue to follow. Critical care time is 32 minutes. Time with Patient: Greater than 30
[2019-01-08 11:46] LABS: Glucose,Whole Blood 124 mg/dL (75-99)
--- NOTE | 2019-01-08 11:54 | P.PN ---
Subjective Progress Note Date: 01/08/19 Principal diagnosis: Aortic valve stenosis, coronary artery disease. Previous medical history of hypertension, COPD, previous tobacco dependence, daily EtOH use, recent pneumonia, skin cancer with removal in July 2018, obesity, and family history of coronary artery disease. POD #1 aortic valve replacement with 23 mm Avalus bovine pericardial valve, coronary artery bypass grafting 1 with the left internal mammary artery to the left anterior descending artery, ligation of the left atrial appendage with a 35 mm AtriCure clip, epi-aortic ultrasonography. Postoperative hemorrhage, unexpected Postoperative thrombocytopenia, expected POD #1 sternal exploration with repair of a hole in the right atrium The patient is currently lying awake in the intensive care unit in no significant distress. He was just extubated this morning at 11:05. He does complain of some incisional type pain, denies shortness of breath. Currently hemodynamically stable on no inotropes or pressors. He did return to the OR last night with repair of the hole in the right atrium and received multiple blood products. This morning his chest tube output has tapered off and he has adequate urine output. Objective - Vital Signs Vital signs: Vital Signs Temp 99.1 F 01/08/19 11:00 Pulse 80 01/08/19 11:15 Resp 13 01/08/19 11:15 BP 171/96 01/07/19 06:01 Pulse Ox 91 L 01/08/19 11:15 Intake & Output 01/07/19 01/08/19 01/08/19 18:59 06:59 18:59 Intake Total 6773.383 5197.435 499.869 Output Total 5033 4004 372 Balance 1356.187 0492.435 127.869 Weight 99.7 kg Intake: IV 328 853.5 429.5 0.9% NS Pressure bag 45 99 45 ACETAMINOPHEN IV (For NPO 100 ) 1,000 mg In Empty Bag 1 bag @ 400 mls/hr IVPB Q6H [facility] Rx#:[id number] CO/CI 190 80 Lactated Ringers 1,000 ml 250 550 201.5 @ 50 mls/hr IV .Q20H [facility] Rx#:[id number] Nitroglycerin-D5w Pmx 50 13.5 3.0 mg In Dextrose/Water 1 250ml.bag @ Per Protocol IV ONCE ONE Rx#:[id number] Intake, IV Titration 1030.383 539.935 70.369 Amount ACETAMINOPHEN IV (For NPO 100 ) 1,000 mg In Empty Bag 1 bag @ 400 mls/hr IVPB Q6H [facility] Rx#:[id number] Albumin Human 5% 250 ml 1000 250 In Empty Bag 1 bag @ 250 mls/hr IVPB Q1HR PRN Rx#: [id number] Insulin Regular 100 unit 9.586 37.598 3.055 In Sodium Chloride 0.9% 100 ml @ Per Protocol IV .Q0M [facility] Rx#:[id number] Nitroglycerin-D5w Pmx 50 5.375 0 mg In Dextrose/Water 1 250ml.bag @ 5 MCG/MIN 1.5 mls/hr IV .Q24H [facility] Rx#: [id number] Norepinephrine 4 mg In 12.328 Sodium Chloride 0.9% 250 ml @ 0.02 MCG/KG/MIN 6. 913 mls/hr IV .Q24H [facility] Rx#:[id number] Propofol 1,000 mg In 15.422 140.009 67.314 Empty Bag 1 bag @ Titrate IV .Q0M [facility] Rx#: [id number] Blood Product 5415 3804 Ffp 24 Cp2d Unit 305 [id number] Ffp 24 Cp2d Unit 210 [id number] Ffp 24 Cpd Unit 269 [id number] Ffp 24 Cpd Unit 336 [id number] Ffp 24 Cpd Unit 0 [id number] Ffp 24 Cpd Unit 264 [id number] Ffp 24 Pher Acda Unit 0 209 [id number] Ffp 24 Pher Acda Unit 215 [id number] Platelet Irr Pheresis 197 Acda1 Unit [id number] Platelet Pheresis Acda1 307 Unit [id number] Platelet Pheresis Acda1 257 Unit [id number] Platelet Pheresis Acda2 307 Unit [id number] Platelet Pheresis Acda2 312 Unit [id number] Pooled Cryoprecipitate 112 Unit [id number] Pooled Cryoprecipitate 108 Unit [id number] Pooled Cryoprecipitate 0 108 Unit [id number] Pooled Cryoprecipitate 0 Unit [id number] Rc As-1 Unit 310 [id number] Rc As-1 Unit 310 [id number] Rc As-1 Unit 310 [id number] Rc As-1 Unit 310 [id number] Rc As-1 Unit 310 [id number] Rc As-1 Unit 310 [id number] Rc As-1 Unit 310 [id number] Output: Chest Tube Drainage 2450 2829 260 Chest Tube Bilateral 217 90 Mediastinal Chest Tube Left Pleural/ 526 94 Mediastinal Chest Tube Right Pleural/ 226 76 Mediastinal Right, Left Mediastinal & 2450 1860 Left Pleural Gastric Drainage 50 Urine 2033 325 112 Estimated Blood Loss 550 800 Other: Voiding Method Indwelling Catheter Indwelling Catheter Indwelling Catheter ABP, PAP, CO, CI - Last Documented Arterial Blood Pressure 98/49 Pulmonary Artery Pressure 45/26 Cardiac Output 4.1 Cardiac Index 2.1 - Constitutional General appearance: Present: cooperative, no acute distress, obese - Respiratory Details: Lungs sounds diminished bilaterally. Respirations even, nonlabored. Currently on 4 L high flow nasal cannula with oxygen saturation 91-94%. Not using incentive spirometry yet. Mediastinal chest tube to continuous wall suction, 120 mL serosanguineous drainage overnight, 500 mL since return from OR. Left pleural chest tube to continuous wall suction, 150 mL serosanguineous drainage overnight, 300 mL since return from OR. Right pleural chest tube to continuous wall suction, 125 mL serosanguineous drainage overnight, 170 mL since return from OR. No air leaks present. - Cardiovascular Details: S1, S2 present. AV paced, underlying rhythm sinus with heart rate in the low 70s. Sternum stable. Epicardial pacemaker wires present and connected to generator, DDD mode with rate 80 bpm. Palpable peripheral pulses bilaterally. Bilateral upper extremity trace edema present, no lower extremity edema present. No calf pain or tenderness noted. Right internal jugular [place]f/Cordis, right radial arterial line present. Last CO/CI 4.1/2.1 on no inotropes or pressors. Heart hugger in place with patient not demonstrating appropriate use yet, antiembolism stockings, SCDs present. - Gastrointestinal Gastrointestinal Comment(s): Abdomen soft, nontender, nondistended, round. Hypoactive bowel sounds present 4 quadrants. Just extubated so not tolerating diet yet. - Genitourinary Genitourinary Comment(s): Francisco present draining clear, yellow urine. Output overnight 10-30 mL/h. - Integumentary Integumentary Comment(s): Skin is warm and dry with evidence of good perfusion. Anterior chest incision well approximated and covered with dry intact dressing. - Neurologic Neurologic: Present: CNII-XII intact - Musculoskeletal Musculoskeletal: Present: strength equal bilaterally - Psychiatric Psychiatric: Present: A&O x's 3, appropriate affect - Allied health notes Allied health notes reviewed: nursing - Labs CBC & Chem 7: 01/08/19 06:00 01/08/19 06:00 Labs: Abnormal Lab Results - Last 24 Hours (Table) 12/31/18 01/07/19 01/07/19 Range/Units 09:09 08:33 10:04 RBC (4.30-5.90) m/uL Hgb (13.0-17.5) gm/dL Hct (39.0-53.0) % RDW (11.5-15.5) % Plt Count (150-450) k/uL Neutrophils # (1.3-7.7) k/uL Lymphocytes # (1.0-4.8) k/uL PT (9.0-12.0) sec INR (<1.2) APTT (22.0-30.0) sec Fibrinogen (200-500) mg/dL ABG pH (7.35-7.45) ABG pCO2 (35-45) mmHg ABG pO2 120 H 179 H (83-108) mmHg ABG HCO3 (21-25) mmol/L ABG Total CO2 (19-24) mmol/L ABG O2 Saturation 99.2 H 99.9 H (94-97) % ABG Hematocrit (34.0-46.0) % ABG Potassium (3.4-4.5) mmol/L ABG Ionized Calcium (4.5-5.3) mg/dL ABG Glucose 131 H 143 H (75-99) mg/dL ABG Lactic Acid (0.5-1.6) mmol/L Hemoglobin (13.0-17.5) gm/dL Chloride (98-107) mmol/L Creatinine (0.66-1.25) mg/dL Glucose (74-99) mg/dL POC Glucose (mg/dL) (75-99) mg/dL Calcium (8.4-10.2) mg/dL Ionized Calcium Dung (4.5-5.3) mg/dL Magnesium (1.6-2.3) mg/dL Total Bilirubin (0.2-1.3) mg/dL AST (17-59) U/L Alkaline Phosphatase (38-126) U/L Total Protein (6.3-8.2) g/dL Albumin (3.5-5.0) g/dL Arterial Blood Potassium (3.4-4.5) mmol/L Arterial Blood Glucose 131 H 143 H (75-99) mg/dL Crossmatch See Detail 01/07/19 01/07/19 01/07/19 Range/Units 10:39 11:11 12:49 RBC (4.30-5.90) m/uL Hgb (13.0-17.5) gm/dL Hct (39.0-53.0) % RDW (11.5-15.5) % Plt Count (150-450) k/uL Neutrophils # (1.3-7.7) k/uL Lymphocytes # (1.0-4.8) k/uL PT (9.0-12.0) sec INR (<1.2) APTT (22.0-30.0) sec Fibrinogen (200-500) mg/dL ABG pH 7.32 L (7.35-7.45) ABG pCO2 46 H 32 L (35-45) mmHg ABG pO2 262 H 354 H 110 H (83-108) mmHg ABG HCO3 (21-25) mmol/L ABG Total CO2 25 H 25 H (19-24) mmol/L ABG O2 Saturation 100.0 H 100.0 H 99.1 H (94-97) % ABG Hematocrit 27 L 28 L 28 L (34.0-46.0) % ABG Potassium 4.9 H (3.4-4.5) mmol/L ABG Ionized Calcium 4.3 L 4.3 L 3.8 L (4.5-5.3) mg/dL ABG Glucose 119 H 122 H (75-99) mg/dL ABG Lactic Acid (0.5-1.6) mmol/L Hemoglobin 8.7 L 9.1 L 9.1 L (13.0-17.5) gm/dL Chloride (98-107) mmol/L Creatinine (0.66-1.25) mg/dL Glucose (74-99) mg/dL POC Glucose (mg/dL) (75-99) mg/dL Calcium (8.4-10.2) mg/dL Ionized Calcium Dung (4.5-5.3) mg/dL Magnesium (1.6-2.3) mg/dL Total Bilirubin (0.2-1.3) mg/dL AST (17-59) U/L Alkaline Phosphatase (38-126) U/L Total Protein (6.3-8.2) g/dL Albumin (3.5-5.0) g/dL Arterial Blood Potassium 4.9 H (3.4-4.5) mmol/L Arterial Blood Glucose 119 H 122 H (75-99) mg/dL Crossmatch 01/07/19 01/07/19 01/07/19 Range/Units 13:33 13:33 13:33 RBC 2.55 L (4.30-5.90) m/uL Hgb 8.6 L D (13.0-17.5) gm/dL Hct 25.2 L (39.0-53.0) % RDW (11.5-15.5) % Plt Count 90 L D (150-450) k/uL Neutrophils # (1.3-7.7) k/uL Lymphocytes # (1.0-4.8) k/uL PT 13.2 H (9.0-12.0) sec INR 1.3 H (<1.2) APTT 47.8 H (22.0-30.0) sec Fibrinogen (200-500) mg/dL ABG pH (7.35-7.45) ABG pCO2 (35-45) mmHg ABG pO2 (83-108) mmHg ABG HCO3 (21-25) mmol/L ABG Total CO2 (19-24) mmol/L ABG O2 Saturation (94-97) % ABG Hematocrit (34.0-46.0) % ABG Potassium (3.4-4.5) mmol/L ABG Ionized Calcium (4.5-5.3) mg/dL ABG Glucose (75-99) mg/dL ABG Lactic Acid (0.5-1.6) mmol/L Hemoglobin (13.0-17.5) gm/dL Chloride 110 H (98-107) mmol/L Creatinine 0.65 L (0.66-1.25) mg/dL Glucose (74-99) mg/dL POC Glucose (mg/dL) (75-99) mg/dL Calcium 8.2 L (8.4-10.2) mg/dL Ionized Calcium Dung (4.5-5.3) mg/dL Magnesium 3.8 H (1.6-2.3) mg/dL Total Bilirubin (0.2-1.3) mg/dL AST (17-59) U/L Alkaline Phosphatase (38-126) U/L Total Protein 4.3 L (6.3-8.2) g/dL Albumin 2.6 L (3.5-5.0) g/dL Arterial Blood Potassium (3.4-4.5) mmol/L Arterial Blood Glucose (75-99) mg/dL Crossmatch 01/07/19 01/07/19 01/07/19 Range/Units 13:42 14:08 14:21 RBC (4.30-5.90) m/uL Hgb (13.0-17.5) gm/dL Hct (39.0-53.0) % RDW (11.5-15.5) % Plt Count (150-450) k/uL Neutrophils # (1.3-7.7) k/uL Lymphocytes # (1.0-4.8) k/uL PT (9.0-12.0) sec INR (<1.2) APTT (22.0-30.0) sec Fibrinogen (200-500) mg/dL ABG pH 7.34 L (7.35-7.45) ABG pCO2 46 H (35-45) mmHg ABG pO2 256 H (83-108) mmHg ABG HCO3 (21-25) mmol/L ABG Total CO2 26 H (19-24) mmol/L ABG O2 Saturation 99.9 H (94-97) % ABG Hematocrit (34.0-46.0) % ABG Potassium (3.4-4.5) mmol/L ABG Ionized Calcium (4.5-5.3) mg/dL ABG Glucose (75-99) mg/dL ABG Lactic Acid (0.5-1.6) mmol/L Hemoglobin (13.0-17.5) gm/dL Chloride (98-107) mmol/L Creatinine (0.66-1.25) mg/dL Glucose (74-99) mg/dL POC Glucose (mg/dL) 106 H 119 H (75-99) mg/dL Calcium (8.4-10.2) mg/dL Ionized Calcium Dung (4.5-5.3) mg/dL Magnesium (1.6-2.3) mg/dL Total Bilirubin (0.2-1.3) mg/dL AST (17-59) U/L Alkaline Phosphatase (38-126) U/L Total Protein (6.3-8.2) g/dL Albumin (3.5-5.0) g/dL Arterial Blood Potassium (3.4-4.5) mmol/L Arterial Blood Glucose (75-99) mg/dL Crossmatch 01/07/19 01/07/19 01/07/19 Range/Units 15:23 16:07 16:35 RBC (4.30-5.90) m/uL Hgb (13.0-17.5) gm/dL Hct (39.0-53.0) % RDW (11.5-15.5) % Plt Count (150-450) k/uL Neutrophils # (1.3-7.7) k/uL Lymphocytes # (1.0-4.8) k/uL PT (9.0-12.0) sec INR (<1.2) APTT (22.0-30.0) sec Fibrinogen 151 L (200-500) mg/dL ABG pH (7.35-7.45) ABG pCO2 (35-45) mmHg ABG pO2 (83-108) mmHg ABG HCO3 (21-25) mmol/L ABG Total CO2 (19-24) mmol/L ABG O2 Saturation (94-97) % ABG Hematocrit (34.0-46.0) % ABG Potassium (3.4-4.5) mmol/L ABG Ionized Calcium (4.5-5.3) mg/dL ABG Glucose (75-99) mg/dL ABG Lactic Acid (0.5-1.6) mmol/L Hemoglobin (13.0-17.5) gm/dL Chloride (98-107) mmol/L Creatinine (0.66-1.25) mg/dL Glucose (74-99) mg/dL POC Glucose (mg/dL) 169 H 207 H (75-99) mg/dL Calcium (8.4-10.2) mg/dL Ionized Calcium Dung (4.5-5.3) mg/dL Magnesium (1.6-2.3) mg/dL Total Bilirubin (0.2-1.3) mg/dL AST (17-59) U/L Alkaline Phosphatase (38-126) U/L Total Protein (6.3-8.2) g/dL Albumin (3.5-5.0) g/dL Arterial Blood Potassium (3.4-4.5) mmol/L Arterial Blood Glucose (75-99) mg/dL Crossmatch 01/07/19 01/07/19 01/07/19 Range/Units 17:08 18:28 19:16 RBC 1.72 L (4.30-5.90) m/uL Hgb 5.3 L* D (13.0-17.5) gm/dL Hct 16.0 L* (39.0-53.0) % RDW 16.9 H (11.5-15.5) % Plt Count 112 L (150-450) k/uL Neutrophils # 7.8 H (1.3-7.7) k/uL Lymphocytes # (1.0-4.8) k/uL PT (9.0-12.0) sec INR (<1.2) APTT (22.0-30.0) sec Fibrinogen (200-500) mg/dL ABG pH (7.35-7.45) ABG pCO2 (35-45) mmHg ABG pO2 (83-108) mmHg ABG HCO3 (21-25) mmol/L ABG Total CO2 (19-24) mmol/L ABG O2 Saturation (94-97) % ABG Hematocrit (34.0-46.0) % ABG Potassium (3.4-4.5) mmol/L ABG Ionized Calcium (4.5-5.3) mg/dL ABG Glucose (75-99) mg/dL ABG Lactic Acid (0.5-1.6) mmol/L Hemoglobin (13.0-17.5) gm/dL Chloride (98-107) mmol/L Creatinine (0.66-1.25) mg/dL Glucose (74-99) mg/dL POC Glucose (mg/dL) 211 H 170 H (75-99) mg/dL Calcium (8.4-10.2) mg/dL Ionized Calcium Dung (4.5-5.3) mg/dL Magnesium (1.6-2.3) mg/dL Total Bilirubin (0.2-1.3) mg/dL AST (17-59) U/L Alkaline Phosphatase (38-126) U/L Total Protein (6.3-8.2) g/dL Albumin (3.5-5.0) g/dL Arterial Blood Potassium (3.4-4.5) mmol/L Arterial Blood Glucose (75-99) mg/dL Crossmatch 01/07/19 01/07/19 01/07/19 Range/Units 19:16 19:38 20:53 RBC (4.30-5.90) m/uL Hgb (13.0-17.5) gm/dL Hct (39.0-53.0) % RDW (11.5-15.5) % Plt Count (150-450) k/uL Neutrophils # (1.3-7.7) k/uL Lymphocytes # (1.0-4.8) k/uL PT (9.0-12.0) sec INR (<1.2) APTT (22.0-30.0) sec Fibrinogen (200-500) mg/dL ABG pH 7.32 L (7.35-7.45) ABG pCO2 (35-45) mmHg ABG pO2 253 H (83-108) mmHg ABG HCO3 (21-25) mmol/L ABG Total CO2 (19-24) mmol/L ABG O2 Saturation 100.0 H (94-97) % ABG Hematocrit 20 L* (34.0-46.0) % ABG Potassium (3.4-4.5) mmol/L ABG Ionized Calcium 4.0 L (4.5-5.3) mg/dL ABG Glucose 199 H (75-99) mg/dL ABG Lactic Acid 4.5 H* (0.5-1.6) mmol/L Hemoglobin 6.5 L* (13.0-17.5) gm/dL Chloride (98-107) mmol/L Creatinine (0.66-1.25) mg/dL Glucose 158 H (74-99) mg/dL POC Glucose (mg/dL) 176 H (75-99) mg/dL Calcium 7.7 L (8.4-10.2) mg/dL Ionized Calcium Dung 4.4 L (4.5-5.3) mg/dL Magnesium 2.9 H (1.6-2.3) mg/dL Total Bilirubin 1.4 H (0.2-1.3) mg/dL AST (17-59) U/L Alkaline Phosphatase 36 L (38-126) U/L Total Protein 4.9 L (6.3-8.2) g/dL Albumin 3.1 L (3.5-5.0) g/dL Arterial Blood Potassium (3.4-4.5) mmol/L Arterial Blood Glucose 199 H (75-99) mg/dL Crossmatch 01/07/19 01/07/19 01/07/19 Range/Units 21:30 22:10 22:10 RBC 2.68 L (4.30-5.90) m/uL Hgb 8.0 L D (13.0-17.5) gm/dL Hct 23.9 L (39.0-53.0) % RDW (11.5-15.5) % Plt Count 105 L (150-450) k/uL Neutrophils # (1.3-7.7) k/uL Lymphocytes # 0.5 L (1.0-4.8) k/uL PT 13.1 H (9.0-12.0) sec INR 1.3 H (<1.2) APTT 32.5 H (22.0-30.0) sec Fibrinogen 105 L 121 L (200-500) mg/dL ABG pH (7.35-7.45) ABG pCO2 (35-45) mmHg ABG pO2 (83-108) mmHg ABG HCO3 (21-25) mmol/L ABG Total CO2 (19-24) mmol/L ABG O2 Saturation (94-97) % ABG Hematocrit (34.0-46.0) % ABG Potassium (3.4-4.5) mmol/L ABG Ionized Calcium (4.5-5.3) mg/dL ABG Glucose (75-99) mg/dL ABG Lactic Acid (0.5-1.6) mmol/L Hemoglobin (13.0-17.5) gm/dL Chloride (98-107) mmol/L Creatinine (0.66-1.25) mg/dL Glucose (74-99) mg/dL POC Glucose (mg/dL) (75-99) mg/dL Calcium (8.4-10.2) mg/dL Ionized Calcium Dung (4.5-5.3) mg/dL Magnesium (1.6-2.3) mg/dL Total Bilirubin (0.2-1.3) mg/dL AST (17-59) U/L Alkaline Phosphatase (38-126) U/L Total Protein (6.3-8.2) g/dL Albumin (3.5-5.0) g/dL Arterial Blood Potassium (3.4-4.5) mmol/L Arterial Blood Glucose (75-99) mg/dL Crossmatch 01/07/19 01/07/19 01/07/19 Range/Units 22:10 22:11 22:59 RBC (4.30-5.90) m/uL Hgb (13.0-17.5) gm/dL Hct (39.0-53.0) % RDW (11.5-15.5) % Plt Count (150-450) k/uL Neutrophils # (1.3-7.7) k/uL Lymphocytes # (1.0-4.8) k/uL PT (9.0-12.0) sec INR (<1.2) APTT (22.0-30.0) sec Fibrinogen (200-500) mg/dL ABG pH (7.35-7.45) ABG pCO2 (35-45) mmHg ABG pO2 78 L (83-108) mmHg ABG HCO3 (21-25) mmol/L ABG Total CO2 25 H (19-24) mmol/L ABG O2 Saturation 97.3 H (94-97) % ABG Hematocrit (34.0-46.0) % ABG Potassium (3.4-4.5) mmol/L ABG Ionized Calcium (4.5-5.3) mg/dL ABG Glucose (75-99) mg/dL ABG Lactic Acid (0.5-1.6) mmol/L Hemoglobin (13.0-17.5) gm/dL Chloride 110 H (98-107) mmol/L Creatinine (0.66-1.25) mg/dL Glucose 155 H (74-99) mg/dL POC Glucose (mg/dL) 175 H (75-99) mg/dL Calcium 8.0 L (8.4-10.2) mg/dL Ionized Calcium Dung (4.5-5.3) mg/dL Magnesium 2.5 H (1.6-2.3) mg/dL Total Bilirubin (0.2-1.3) mg/dL AST (17-59) U/L Alkaline Phosphatase (38-126) U/L Total Protein (6.3-8.2) g/dL Albumin (3.5-5.0) g/dL Arterial Blood Potassium (3.4-4.5) mmol/L Arterial Blood Glucose (75-99) mg/dL Crossmatch 01/07/19 01/08/19 01/08/19 Range/Units 23:06 00:05 00:13 RBC 2.21 L (4.30-5.90) m/uL Hgb 6.7 L* (13.0-17.5) gm/dL Hct 19.5 L* (39.0-53.0) % RDW (11.5-15.5) % Plt Count 86 L (150-450) k/uL Neutrophils # (1.3-7.7) k/uL Lymphocytes # 0.4 L (1.0-4.8) k/uL PT (9.0-12.0) sec INR (<1.2) APTT (22.0-30.0) sec Fibrinogen (200-500) mg/dL ABG pH (7.35-7.45) ABG pCO2 (35-45) mmHg ABG pO2 (83-108) mmHg ABG HCO3 (21-25) mmol/L ABG Total CO2 (19-24) mmol/L ABG O2 Saturation (94-97) % ABG Hematocrit (34.0-46.0) % ABG Potassium (3.4-4.5) mmol/L ABG Ionized Calcium (4.5-5.3) mg/dL ABG Glucose (75-99) mg/dL ABG Lactic Acid (0.5-1.6) mmol/L Hemoglobin (13.0-17.5) gm/dL Chloride (98-107) mmol/L Creatinine (0.66-1.25) mg/dL Glucose (74-99) mg/dL POC Glucose (mg/dL) 184 H 179 H (75-99) mg/dL Calcium (8.4-10.2) mg/dL Ionized Calcium Dung (4.5-5.3) mg/dL Magnesium (1.6-2.3) mg/dL Total Bilirubin (0.2-1.3) mg/dL AST (17-59) U/L Alkaline Phosphatase (38-126) U/L Total Protein (6.3-8.2) g/dL Albumin (3.5-5.0) g/dL Arterial Blood Potassium (3.4-4.5) mmol/L Arterial Blood Glucose (75-99) mg/dL Crossmatch 01/08/19 01/08/19 01/08/19 Range/Units 01:01 02:16 03:12 RBC (4.30-5.90) m/uL Hgb (13.0-17.5) gm/dL Hct (39.0-53.0) % RDW (11.5-15.5) % Plt Count (150-450) k/uL Neutrophils # (1.3-7.7) k/uL Lymphocytes # (1.0-4.8) k/uL PT (9.0-12.0) sec INR (<1.2) APTT (22.0-30.0) sec Fibrinogen (200-500) mg/dL ABG pH (7.35-7.45) ABG pCO2 (35-45) mmHg ABG pO2 (83-108) mmHg ABG HCO3 (21-25) mmol/L ABG Total CO2 (19-24) mmol/L ABG O2 Saturation (94-97) % ABG Hematocrit (34.0-46.0) % ABG Potassium (3.4-4.5) mmol/L ABG Ionized Calcium (4.5-5.3) mg/dL ABG Glucose (75-99) mg/dL ABG Lactic Acid (0.5-1.6) mmol/L Hemoglobin (13.0-17.5) gm/dL Chloride (98-107) mmol/L Creatinine (0.66-1.25) mg/dL Glucose (74-99) mg/dL POC Glucose (mg/dL) 152 H 128 H 122 H (75-99) mg/dL Calcium (8.4-10.2) mg/dL Ionized Calcium Dung (4.5-5.3) mg/dL Magnesium (1.6-2.3) mg/dL Total Bilirubin (0.2-1.3) mg/dL AST (17-59) U/L Alkaline Phosphatase (38-126) U/L Total Protein (6.3-8.2) g/dL Albumin (3.5-5.0) g/dL Arterial Blood Potassium (3.4-4.5) mmol/L Arterial Blood Glucose (75-99) mg/dL Crossmatch 01/08/19 01/08/19 01/08/19 Range/Units 04:10 05:12 05:57 RBC (4.30-5.90) m/uL Hgb (13.0-17.5) gm/dL Hct (39.0-53.0) % RDW (11.5-15.5) % Plt Count (150-450) k/uL Neutrophils # (1.3-7.7) k/uL Lymphocytes # (1.0-4.8) k/uL PT (9.0-12.0) sec INR (<1.2) APTT (22.0-30.0) sec Fibrinogen (200-500) mg/dL ABG pH (7.35-7.45) ABG pCO2 (35-45) mmHg ABG pO2 (83-108) mmHg ABG HCO3 (21-25) mmol/L ABG Total CO2 (19-24) mmol/L ABG O2 Saturation (94-97) % ABG Hematocrit (34.0-46.0) % ABG Potassium (3.4-4.5) mmol/L ABG Ionized Calcium (4.5-5.3) mg/dL ABG Glucose (75-99) mg/dL ABG Lactic Acid (0.5-1.6) mmol/L Hemoglobin (13.0-17.5) gm/dL Chloride (98-107) mmol/L Creatinine (0.66-1.25) mg/dL Glucose (74-99) mg/dL POC Glucose (mg/dL) 130 H 110 H 118 H (75-99) mg/dL Calcium (8.4-10.2) mg/dL Ionized Calcium Dung (4.5-5.3) mg/dL Magnesium (1.6-2.3) mg/dL Total Bilirubin (0.2-1.3) mg/dL AST (17-59) U/L Alkaline Phosphatase (38-126) U/L Total Protein (6.3-8.2) g/dL Albumin (3.5-5.0) g/dL Arterial Blood Potassium (3.4-4.5) mmol/L Arterial Blood Glucose (75-99) mg/dL Crossmatch 01/08/19 01/08/19 01/08/19 Range/Units 06:00 06:00 07:11 RBC 2.66 L (4.30-5.90) m/uL Hgb 8.1 L (13.0-17.5) gm/dL Hct 23.4 L (39.0-53.0) % RDW (11.5-15.5) % Plt Count 75 L (150-450) k/uL Neutrophils # (1.3-7.7) k/uL Lymphocytes # (1.0-4.8) k/uL PT (9.0-12.0) sec INR (<1.2) APTT (22.0-30.0) sec Fibrinogen (200-500) mg/dL ABG pH (7.35-7.45) ABG pCO2 (35-45) mmHg ABG pO2 (83-108) mmHg ABG HCO3 (21-25) mmol/L ABG Total CO2 (19-24) mmol/L ABG O2 Saturation (94-97) % ABG Hematocrit (34.0-46.0) % ABG Potassium (3.4-4.5) mmol/L ABG Ionized Calcium (4.5-5.3) mg/dL ABG Glucose (75-99) mg/dL ABG Lactic Acid (0.5-1.6) mmol/L Hemoglobin (13.0-17.5) gm/dL Chloride 108 H (98-107) mmol/L Creatinine (0.66-1.25) mg/dL Glucose 105 H (74-99) mg/dL POC Glucose (mg/dL) 116 H (75-99) mg/dL Calcium 8.0 L (8.4-10.2) mg/dL Ionized Calcium Dung (4.5-5.3) mg/dL Magnesium 2.4 H (1.6-2.3) mg/dL Total Bilirubin (0.2-1.3) mg/dL AST 62 H (17-59) U/L Alkaline Phosphatase 34 L (38-126) U/L Total Protein 4.9 L (6.3-8.2) g/dL Albumin 3.1 L (3.5-5.0) g/dL Arterial Blood Potassium (3.4-4.5) mmol/L Arterial Blood Glucose (75-99) mg/dL Crossmatch 01/08/19 01/08/19 01/08/19 Range/Units 07:12 08:07 10:02 RBC (4.30-5.90) m/uL Hgb (13.0-17.5) gm/dL Hct (39.0-53.0) % RDW (11.5-15.5) % Plt Count (150-450) k/uL Neutrophils # (1.3-7.7) k/uL Lymphocytes # (1.0-4.8) k/uL PT (9.0-12.0) sec INR (<1.2) APTT (22.0-30.0) sec Fibrinogen (200-500) mg/dL ABG pH 7.50 H (7.35-7.45) ABG pCO2 34 L (35-45) mmHg ABG pO2 127 H (83-108) mmHg ABG HCO3 27 H (21-25) mmol/L ABG Total CO2 28 H (19-24) mmol/L ABG O2 Saturation 99.4 H (94-97) % ABG Hematocrit (34.0-46.0) % ABG Potassium (3.4-4.5) mmol/L ABG Ionized Calcium (4.5-5.3) mg/dL ABG Glucose (75-99) mg/dL ABG Lactic Acid (0.5-1.6) mmol/L Hemoglobin (13.0-17.5) gm/dL Chloride (98-107) mmol/L Creatinine (0.66-1.25) mg/dL Glucose (74-99) mg/dL POC Glucose (mg/dL) 130 H 131 H (75-99) mg/dL Calcium (8.4-10.2) mg/dL Ionized Calcium Dung (4.5-5.3) mg/dL Magnesium (1.6-2.3) mg/dL Total Bilirubin (0.2-1.3) mg/dL AST (17-59) U/L Alkaline Phosphatase (38-126) U/L Total Protein (6.3-8.2) g/dL Albumin (3.5-5.0) g/dL Arterial Blood Potassium (3.4-4.5) mmol/L Arterial Blood Glucose (75-99) mg/dL Crossmatch 01/08/19 Range/Units 10:45 RBC (4.30-5.90) m/uL Hgb (13.0-17.5) gm/dL Hct (39.0-53.0) % RDW (11.5-15.5) % Plt Count (150-450) k/uL Neutrophils # (1.3-7.7) k/uL Lymphocytes # (1.0-4.8) k/uL PT (9.0-12.0) sec INR (<1.2) APTT (22.0-30.0) sec Fibrinogen (200-500) mg/dL ABG pH (7.35-7.45) ABG pCO2 (35-45) mmHg ABG pO2 69 L (83-108) mmHg ABG HCO3 27 H (21-25) mmol/L ABG Total CO2 28 H (19-24) mmol/L ABG O2 Saturation (94-97) % ABG Hematocrit (34.0-46.0) % ABG Potassium (3.4-4.5) mmol/L ABG Ionized Calcium (4.5-5.3) mg/dL ABG Glucose (75-99) mg/dL ABG Lactic Acid (0.5-1.6) mmol/L Hemoglobin (13.0-17.5) gm/dL Chloride (98-107) mmol/L Creatinine (0.66-1.25) mg/dL Glucose (74-99) mg/dL POC Glucose (mg/dL) (75-99) mg/dL Calcium (8.4-10.2) mg/dL Ionized Calcium Dung (4.5-5.3) mg/dL Magnesium (1.6-2.3) mg/dL Total Bilirubin (0.2-1.3) mg/dL AST (17-59) U/L Alkaline Phosphatase (38-126) U/L Total Protein (6.3-8.2) g/dL Albumin (3.5-5.0) g/dL Arterial Blood Potassium (3.4-4.5) mmol/L Arterial Blood Glucose (75-99) mg/dL Crossmatch - Imaging and Cardiology Chest x-ray: report reviewed, image reviewed Assessment and Plan Assessment: 1. Aortic valve stenosis, status post bioprosthetic aortic valve replacement 2. Coronary artery disease, status post single vessel CABG 3. History of hypertension 4. History of COPD 5. Previous tobacco dependence 6. Daily EtOH use 7. Recent pneumonia 8. Skin cancer with removal in July 2018 9. Family history of coronary artery disease 10. Postoperative hemorrhage, status post sternal exploration with repair of hole in the right atrium 11. Postoperative thrombocytopenia Plan: 1. Continue aspirin, statin, and adrianna therapy. Will increase beta adrianna therapy as tolerated. Will hold Plavix today secondary to thrombocytopenia. 2. Wean O2 as tolerated. Encourage incentive spirometry use 10 times every hour while awake. 3. Increase activity, out of bed to chair. PT/OT/cardiac rehab following. 4. Bronchodilators per pulmonology. 5. Insulin management per primary care service. 6. Will monitor daily labs and x-rays. Electrolytes replacement per protocol. No further transfusions at this time. 7. GI/DVT prophylaxis. 8. [facility] protocol for alcohol withdrawal. 9. Pain control with current medication regimen. 10. Increase diet as tolerated. 11. Will keep chest tubes, invasive lines, Francisco catheter for another 24 hours. 12. More recommendations to follow based on patient's progress. Time with Patient: Greater than 30
[2019-01-08 12:27] LABS: Glucose,Whole Blood 132 mg/dL (75-99)
--- NOTE | 2019-01-08 13:10 | CDI ---
Documentation Clarification Form Date: 01/08/2019 1303 CDS: Yissel Wilson RN, CCDS Admit Date: 01/07/2019 0533 Patient Name: Danny Chase ATTENTION: The Clinical Documentation Specialists (CDI) and [facility] Coding Staff appreciate your assistance in clarifying documentation. Please respond to the clarification below the line at the bottom and electronically sign. The CDI & [facility] Coding staff will review the response and follow-up if needed. Please note: Queries are made part of the Legal Health Record. If you have any questions, please contact the author of this message via ITS. Dr. Wallace A drop in the Hgb/Hct has been noted, please provide clinical significance. History/Risk Factors: elective AVR and Ponce to LAD Clinical indicators: Postoperative Hemorrhage unexpected, postop thrombocytopenia Hemoglobin: Pre-op 15.2/ P-op 8.6/5.3/8.0/6.7/8.1 Hematocrit: 45/25.2/16/23.9/19.5/23.4 Treatment: 7 u PC Transfused 8 Units FFP Transfused 3 units of platelets transfused Plasma pheresis 2 units CBC Q 6 hrs and PRN In order to capture the severity of condition, please clarify the type of anemia and etiology if known: Acute blood loss anemia Acute on chronic blood loss anemia Chronic blood loss anemia Iron deficiency anemia Hemolytic anemia Drug induced anemia Unable to determine Other, please specify Please identify the expectation of the above conditn in relation to the procedure Expected Inherant integral Unexpected (Last Revision: April 2017) Postoperative hemorrhage was noted, which would be an unexpected acute blood loss anemia MTDD
[2019-01-08] MEDS ORDERED: fentaNYL (PF) 50 MCG/ML 2 ML AMP IVP STA (13:37)
[2019-01-08 14:23] LABS: Glucose,Whole Blood 115 mg/dL (75-99)
--- NOTE | 2019-01-08 15:04 | P.PN ---
Subjective Patient has been extubated and is doing well following aortic valve replacement with a bovine pericardial valve, coronary artery bypass grafting with a GILL graft to the LAD, ligation of the left atrial appendage Unexpected postoperative hemorrhage with postoperative thrombocytopenia with reexploration and repair of an opening in the right atrium At this time he is resting comfortably in bed he has some incisional pain but no shortness of breath looks quite comfortable Blood pressure 121/49 mmHg respirations 16 pulse rate in the 80s temperature 90.9F Breath sounds are reduced bilaterally with some crackles at the bases Heart sounds are distant Abdomen is soft Sodium 140 potassium 4.2 BUN 12 creatinine 0.74 AST 62 ALT 42 Impression coronary artery disease status post single vessel coronary artery bypass grafting Left atrial appendage exclusion/ligation Redo Replacement with a bovine pericardial valve Suggest Aspirin to continue, atorvastatin 40 mg by mouth daily Metoprolol 12.5 mg twice daily and gradually maximize Objective - Vital Signs Vital signs: Vital Signs Temp 99.0 F 01/08/19 12:00 Pulse 80 01/08/19 12:00 Resp 19 01/08/19 12:00 BP 171/96 01/07/19 06:01 Pulse Ox 94 L 01/08/19 12:00 Intake & Output 01/07/19 01/08/19 01/08/19 18:59 06:59 18:59 Intake Total 6773.383 5197.435 596.737 Output Total 5033 4004 397 Balance 6744.816 3960.435 199.737 Weight 99.7 kg Intake: IV 328 853.5 508.5 0.9% NS Pressure bag 45 99 54 ACETAMINOPHEN IV (For NPO 100 ) 1,000 mg In Empty Bag 1 bag @ 400 mls/hr IVPB Q6H [facility] Rx#:[id number] CO/CI 190 100 Lactated Ringers 1,000 ml 250 550 251.5 @ 50 mls/hr IV .Q20H [facility] Rx#:[id number] Nitroglycerin-D5w Pmx 50 13.5 3.0 mg In Dextrose/Water 1 250ml.bag @ Per Protocol IV ONCE ONE Rx#:[id number] Intake, IV Titration 1030.383 539.935 88.237 Amount ACETAMINOPHEN IV (For NPO 100 ) 1,000 mg In Empty Bag 1 bag @ 400 mls/hr IVPB Q6H [facility] Rx#:[id number] Albumin Human 5% 250 ml 1000 250 In Empty Bag 1 bag @ 250 mls/hr IVPB Q1HR PRN Rx#: [id number] Insulin Regular 100 unit 9.586 37.598 18.331 In Sodium Chloride 0.9% 100 ml @ Per Protocol IV .Q0M [facility] Rx#:[id number] Nitroglycerin-D5w Pmx 50 5.375 0 mg In Dextrose/Water 1 250ml.bag @ 5 MCG/MIN 1.5 mls/hr IV .Q24H [facility] Rx#: [id number] Norepinephrine 4 mg In 12.328 Sodium Chloride 0.9% 250 ml @ 0.02 MCG/KG/MIN 6. 913 mls/hr IV .Q24H [facility] Rx#:[id number] Propofol 1,000 mg In 15.422 140.009 69.906 Empty Bag 1 bag @ Titrate IV .Q0M [facility] Rx#: [id number] Blood Product 5415 3804 Ffp 24 Cp2d Unit 305 [id number] Ffp 24 Cp2d Unit 210 [id number] Ffp 24 Cpd Unit 269 [id number] Ffp 24 Cpd Unit 336 [id number] Ffp 24 Cpd Unit 0 [id number] Ffp 24 Cpd Unit 264 [id number] Ffp 24 Pher Acda Unit 0 209 [id number] Ffp 24 Pher Acda Unit 215 [id number] Platelet Irr Pheresis 197 Acda1 Unit [id number] Platelet Pheresis Acda1 307 Unit [id number] Platelet Pheresis Acda1 257 Unit [id number] Platelet Pheresis Acda2 307 Unit [id number] Platelet Pheresis Acda2 312 Unit [id number] Pooled Cryoprecipitate 112 Unit [id number] Pooled Cryoprecipitate 108 Unit [id number] Pooled Cryoprecipitate 0 108 Unit [id number] Pooled Cryoprecipitate 0 Unit [id number] Rc As-1 Unit 310 [id number] Rc As-1 Unit 310 [id number] Rc As-1 Unit 310 [id number] Rc As-1 Unit 310 [id number] Rc As-1 Unit 310 [id number] Rc As-1 Unit 310 [id number] Rc As-1 Unit 310 [id number] Output: Chest Tube Drainage 2450 2829 270 Chest Tube Bilateral 217 90 Mediastinal Chest Tube Left Pleural/ 526 104 Mediastinal Chest Tube Right Pleural/ 226 76 Mediastinal Right, Left Mediastinal & 2450 1860 Left Pleural Gastric Drainage 50 Urine 2033 325 127 Estimated Blood Loss 550 800 Other: Voiding Method Indwelling Catheter Indwelling Catheter Indwelling Catheter ABP, PAP, CO, CI - Last Documented Arterial Blood Pressure 121/49 Pulmonary Artery Pressure 36/19 Cardiac Output 4.8 Cardiac Index 2.4 - Labs CBC & Chem 7: 01/08/19 06:00 01/08/19 06:00 Labs: Abnormal Lab Results - Last 24 Hours (Table) 12/31/18 01/07/19 01/07/19 Range/Units 09:09 15:23 16:07 RBC (4.30-5.90) m/uL Hgb (13.0-17.5) gm/dL Hct (39.0-53.0) % RDW (11.5-15.5) % Plt Count (150-450) k/uL Neutrophils # (1.3-7.7) k/uL Lymphocytes # (1.0-4.8) k/uL PT (9.0-12.0) sec INR (<1.2) APTT (22.0-30.0) sec Fibrinogen (200-500) mg/dL ABG pH (7.35-7.45) ABG pCO2 (35-45) mmHg ABG pO2 (83-108) mmHg ABG HCO3 (21-25) mmol/L ABG Total CO2 (19-24) mmol/L ABG O2 Saturation (94-97) % ABG Hematocrit (34.0-46.0) % ABG Ionized Calcium (4.5-5.3) mg/dL ABG Glucose (75-99) mg/dL ABG Lactic Acid (0.5-1.6) mmol/L Hemoglobin (13.0-17.5) gm/dL Chloride (98-107) mmol/L Glucose (74-99) mg/dL POC Glucose (mg/dL) 169 H 207 H (75-99) mg/dL Calcium (8.4-10.2) mg/dL Ionized Calcium Dung (4.5-5.3) mg/dL Magnesium (1.6-2.3) mg/dL Total Bilirubin (0.2-1.3) mg/dL AST (17-59) U/L Alkaline Phosphatase (38-126) U/L Total Protein (6.3-8.2) g/dL Albumin (3.5-5.0) g/dL Arterial Blood Glucose (75-99) mg/dL Crossmatch See Detail 01/07/19 01/07/19 01/07/19 Range/Units 16:35 17:08 18:28 RBC (4.30-5.90) m/uL Hgb (13.0-17.5) gm/dL Hct (39.0-53.0) % RDW (11.5-15.5) % Plt Count (150-450) k/uL Neutrophils # (1.3-7.7) k/uL Lymphocytes # (1.0-4.8) k/uL PT (9.0-12.0) sec INR (<1.2) APTT (22.0-30.0) sec Fibrinogen 151 L (200-500) mg/dL ABG pH (7.35-7.45) ABG pCO2 (35-45) mmHg ABG pO2 (83-108) mmHg ABG HCO3 (21-25) mmol/L ABG Total CO2 (19-24) mmol/L ABG O2 Saturation (94-97) % ABG Hematocrit (34.0-46.0) % ABG Ionized Calcium (4.5-5.3) mg/dL ABG Glucose (75-99) mg/dL ABG Lactic Acid (0.5-1.6) mmol/L Hemoglobin (13.0-17.5) gm/dL Chloride (98-107) mmol/L Glucose (74-99) mg/dL POC Glucose (mg/dL) 211 H 170 H (75-99) mg/dL Calcium (8.4-10.2) mg/dL Ionized Calcium Dung (4.5-5.3) mg/dL Magnesium (1.6-2.3) mg/dL Total Bilirubin (0.2-1.3) mg/dL AST (17-59) U/L Alkaline Phosphatase (38-126) U/L Total Protein (6.3-8.2) g/dL Albumin (3.5-5.0) g/dL Arterial Blood Glucose (75-99) mg/dL Crossmatch 01/07/19 01/07/19 01/07/19 Range/Units 19:16 19:16 19:38 RBC 1.72 L (4.30-5.90) m/uL Hgb 5.3 L* D (13.0-17.5) gm/dL Hct 16.0 L* (39.0-53.0) % RDW 16.9 H (11.5-15.5) % Plt Count 112 L (150-450) k/uL Neutrophils # 7.8 H (1.3-7.7) k/uL Lymphocytes # (1.0-4.8) k/uL PT (9.0-12.0) sec INR (<1.2) APTT (22.0-30.0) sec Fibrinogen (200-500) mg/dL ABG pH (7.35-7.45) ABG pCO2 (35-45) mmHg ABG pO2 (83-108) mmHg ABG HCO3 (21-25) mmol/L ABG Total CO2 (19-24) mmol/L ABG O2 Saturation (94-97) % ABG Hematocrit (34.0-46.0) % ABG Ionized Calcium (4.5-5.3) mg/dL ABG Glucose (75-99) mg/dL ABG Lactic Acid (0.5-1.6) mmol/L Hemoglobin (13.0-17.5) gm/dL Chloride (98-107) mmol/L Glucose 158 H (74-99) mg/dL POC Glucose (mg/dL) 176 H (75-99) mg/dL Calcium 7.7 L (8.4-10.2) mg/dL Ionized Calcium Dung 4.4 L (4.5-5.3) mg/dL Magnesium 2.9 H (1.6-2.3) mg/dL Total Bilirubin 1.4 H (0.2-1.3) mg/dL AST (17-59) U/L Alkaline Phosphatase 36 L (38-126) U/L Total Protein 4.9 L (6.3-8.2) g/dL Albumin 3.1 L (3.5-5.0) g/dL Arterial Blood Glucose (75-99) mg/dL Crossmatch 01/07/19 01/07/19 01/07/19 Range/Units 20:53 21:30 22:10 RBC 2.68 L (4.30-5.90) m/uL Hgb 8.0 L D (13.0-17.5) gm/dL Hct 23.9 L (39.0-53.0) % RDW (11.5-15.5) % Plt Count 105 L (150-450) k/uL Neutrophils # (1.3-7.7) k/uL Lymphocytes # 0.5 L (1.0-4.8) k/uL PT (9.0-12.0) sec INR (<1.2) APTT (22.0-30.0) sec Fibrinogen 105 L (200-500) mg/dL ABG pH 7.32 L (7.35-7.45) ABG pCO2 (35-45) mmHg ABG pO2 253 H (83-108) mmHg ABG HCO3 (21-25) mmol/L ABG Total CO2 (19-24) mmol/L ABG O2 Saturation 100.0 H (94-97) % ABG Hematocrit 20 L* (34.0-46.0) % ABG Ionized Calcium 4.0 L (4.5-5.3) mg/dL ABG Glucose 199 H (75-99) mg/dL ABG Lactic Acid 4.5 H* (0.5-1.6) mmol/L Hemoglobin 6.5 L* (13.0-17.5) gm/dL Chloride (98-107) mmol/L Glucose (74-99) mg/dL POC Glucose (mg/dL) (75-99) mg/dL Calcium (8.4-10.2) mg/dL Ionized Calcium Dung (4.5-5.3) mg/dL Magnesium (1.6-2.3) mg/dL Total Bilirubin (0.2-1.3) mg/dL AST (17-59) U/L Alkaline Phosphatase (38-126) U/L Total Protein (6.3-8.2) g/dL Albumin (3.5-5.0) g/dL Arterial Blood Glucose 199 H (75-99) mg/dL Crossmatch 01/07/19 01/07/19 01/07/19 Range/Units 22:10 22:10 22:11 RBC (4.30-5.90) m/uL Hgb (13.0-17.5) gm/dL Hct (39.0-53.0) % RDW (11.5-15.5) % Plt Count (150-450) k/uL Neutrophils # (1.3-7.7) k/uL Lymphocytes # (1.0-4.8) k/uL PT 13.1 H (9.0-12.0) sec INR 1.3 H (<1.2) APTT 32.5 H (22.0-30.0) sec Fibrinogen 121 L (200-500) mg/dL ABG pH (7.35-7.45) ABG pCO2 (35-45) mmHg ABG pO2 (83-108) mmHg ABG HCO3 (21-25) mmol/L ABG Total CO2 (19-24) mmol/L ABG O2 Saturation (94-97) % ABG Hematocrit (34.0-46.0) % ABG Ionized Calcium (4.5-5.3) mg/dL ABG Glucose (75-99) mg/dL ABG Lactic Acid (0.5-1.6) mmol/L Hemoglobin (13.0-17.5) gm/dL Chloride 110 H (98-107) mmol/L Glucose 155 H (74-99) mg/dL POC Glucose (mg/dL) 175 H (75-99) mg/dL Calcium 8.0 L (8.4-10.2) mg/dL Ionized Calcium Dung (4.5-5.3) mg/dL Magnesium 2.5 H (1.6-2.3) mg/dL Total Bilirubin (0.2-1.3) mg/dL AST (17-59) U/L Alkaline Phosphatase (38-126) U/L Total Protein (6.3-8.2) g/dL Albumin (3.5-5.0) g/dL Arterial Blood Glucose (75-99) mg/dL Crossmatch 01/07/19 01/07/19 01/08/19 Range/Units 22:59 23:06 00:05 RBC (4.30-5.90) m/uL Hgb (13.0-17.5) gm/dL Hct (39.0-53.0) % RDW (11.5-15.5) % Plt Count (150-450) k/uL Neutrophils # (1.3-7.7) k/uL Lymphocytes # (1.0-4.8) k/uL PT (9.0-12.0) sec INR (<1.2) APTT (22.0-30.0) sec Fibrinogen (200-500) mg/dL ABG pH (7.35-7.45) ABG pCO2 (35-45) mmHg ABG pO2 78 L (83-108) mmHg ABG HCO3 (21-25) mmol/L ABG Total CO2 25 H (19-24) mmol/L ABG O2 Saturation 97.3 H (94-97) % ABG Hematocrit (34.0-46.0) % ABG Ionized Calcium (4.5-5.3) mg/dL ABG Glucose (75-99) mg/dL ABG Lactic Acid (0.5-1.6) mmol/L Hemoglobin (13.0-17.5) gm/dL Chloride (98-107) mmol/L Glucose (74-99) mg/dL POC Glucose (mg/dL) 184 H 179 H (75-99) mg/dL Calcium (8.4-10.2) mg/dL Ionized Calcium Dung (4.5-5.3) mg/dL Magnesium (1.6-2.3) mg/dL Total Bilirubin (0.2-1.3) mg/dL AST (17-59) U/L Alkaline Phosphatase (38-126) U/L Total Protein (6.3-8.2) g/dL Albumin (3.5-5.0) g/dL Arterial Blood Glucose (75-99) mg/dL Crossmatch 01/08/19 01/08/19 01/08/19 Range/Units 00:13 01:01 02:16 RBC 2.21 L (4.30-5.90) m/uL Hgb 6.7 L* (13.0-17.5) gm/dL Hct 19.5 L* (39.0-53.0) % RDW (11.5-15.5) % Plt Count 86 L (150-450) k/uL Neutrophils # (1.3-7.7) k/uL Lymphocytes # 0.4 L (1.0-4.8) k/uL PT (9.0-12.0) sec INR (<1.2) APTT (22.0-30.0) sec Fibrinogen (200-500) mg/dL ABG pH (7.35-7.45) ABG pCO2 (35-45) mmHg ABG pO2 (83-108) mmHg ABG HCO3 (21-25) mmol/L ABG Total CO2 (19-24) mmol/L ABG O2 Saturation (94-97) % ABG Hematocrit (34.0-46.0) % ABG Ionized Calcium (4.5-5.3) mg/dL ABG Glucose (75-99) mg/dL ABG Lactic Acid (0.5-1.6) mmol/L Hemoglobin (13.0-17.5) gm/dL Chloride (98-107) mmol/L Glucose (74-99) mg/dL POC Glucose (mg/dL) 152 H 128 H (75-99) mg/dL Calcium (8.4-10.2) mg/dL Ionized Calcium Dung (4.5-5.3) mg/dL Magnesium (1.6-2.3) mg/dL Total Bilirubin (0.2-1.3) mg/dL AST (17-59) U/L Alkaline Phosphatase (38-126) U/L Total Protein (6.3-8.2) g/dL Albumin (3.5-5.0) g/dL Arterial Blood Glucose (75-99) mg/dL Crossmatch 01/08/19 01/08/19 01/08/19 Range/Units 03:12 04:10 05:12 RBC (4.30-5.90) m/uL Hgb (13.0-17.5) gm/dL Hct (39.0-53.0) % RDW (11.5-15.5) % Plt Count (150-450) k/uL Neutrophils # (1.3-7.7) k/uL Lymphocytes # (1.0-4.8) k/uL PT (9.0-12.0) sec INR (<1.2) APTT (22.0-30.0) sec Fibrinogen (200-500) mg/dL ABG pH (7.35-7.45) ABG pCO2 (35-45) mmHg ABG pO2 (83-108) mmHg ABG HCO3 (21-25) mmol/L ABG Total CO2 (19-24) mmol/L ABG O2 Saturation (94-97) % ABG Hematocrit (34.0-46.0) % ABG Ionized Calcium (4.5-5.3) mg/dL ABG Glucose (75-99) mg/dL ABG Lactic Acid (0.5-1.6) mmol/L Hemoglobin (13.0-17.5) gm/dL Chloride (98-107) mmol/L Glucose (74-99) mg/dL POC Glucose (mg/dL) 122 H 130 H 110 H (75-99) mg/dL Calcium (8.4-10.2) mg/dL Ionized Calcium Dung (4.5-5.3) mg/dL Magnesium (1.6-2.3) mg/dL Total Bilirubin (0.2-1.3) mg/dL AST (17-59) U/L Alkaline Phosphatase (38-126) U/L Total Protein (6.3-8.2) g/dL Albumin (3.5-5.0) g/dL Arterial Blood Glucose (75-99) mg/dL Crossmatch 01/08/19 01/08/19 01/08/19 Range/Units 05:57 06:00 06:00 RBC 2.66 L (4.30-5.90) m/uL Hgb 8.1 L (13.0-17.5) gm/dL Hct 23.4 L (39.0-53.0) % RDW (11.5-15.5) % Plt Count 75 L (150-450) k/uL Neutrophils # (1.3-7.7) k/uL Lymphocytes # (1.0-4.8) k/uL PT (9.0-12.0) sec INR (<1.2) APTT (22.0-30.0) sec Fibrinogen (200-500) mg/dL ABG pH (7.35-7.45) ABG pCO2 (35-45) mmHg ABG pO2 (83-108) mmHg ABG HCO3 (21-25) mmol/L ABG Total CO2 (19-24) mmol/L ABG O2 Saturation (94-97) % ABG Hematocrit (34.0-46.0) % ABG Ionized Calcium (4.5-5.3) mg/dL ABG Glucose (75-99) mg/dL ABG Lactic Acid (0.5-1.6) mmol/L Hemoglobin (13.0-17.5) gm/dL Chloride 108 H (98-107) mmol/L Glucose 105 H (74-99) mg/dL POC Glucose (mg/dL) 118 H (75-99) mg/dL Calcium 8.0 L (8.4-10.2) mg/dL Ionized Calcium Dung (4.5-5.3) mg/dL Magnesium 2.4 H (1.6-2.3) mg/dL Total Bilirubin (0.2-1.3) mg/dL AST 62 H (17-59) U/L Alkaline Phosphatase 34 L (38-126) U/L Total Protein 4.9 L (6.3-8.2) g/dL Albumin 3.1 L (3.5-5.0) g/dL Arterial Blood Glucose (75-99) mg/dL Crossmatch 01/08/19 01/08/19 01/08/19 Range/Units 07:11 07:12 08:07 RBC (4.30-5.90) m/uL Hgb (13.0-17.5) gm/dL Hct (39.0-53.0) % RDW (11.5-15.5) % Plt Count (150-450) k/uL Neutrophils # (1.3-7.7) k/uL Lymphocytes # (1.0-4.8) k/uL PT (9.0-12.0) sec INR (<1.2) APTT (22.0-30.0) sec Fibrinogen (200-500) mg/dL ABG pH 7.50 H (7.35-7.45) ABG pCO2 34 L (35-45) mmHg ABG pO2 127 H (83-108) mmHg ABG HCO3 27 H (21-25) mmol/L ABG Total CO2 28 H (19-24) mmol/L ABG O2 Saturation 99.4 H (94-97) % ABG Hematocrit (34.0-46.0) % ABG Ionized Calcium (4.5-5.3) mg/dL ABG Glucose (75-99) mg/dL ABG Lactic Acid (0.5-1.6) mmol/L Hemoglobin (13.0-17.5) gm/dL Chloride (98-107) mmol/L Glucose (74-99) mg/dL POC Glucose (mg/dL) 116 H 130 H (75-99) mg/dL Calcium (8.4-10.2) mg/dL Ionized Calcium Dung (4.5-5.3) mg/dL Magnesium (1.6-2.3) mg/dL Total Bilirubin (0.2-1.3) mg/dL AST (17-59) U/L Alkaline Phosphatase (38-126) U/L Total Protein (6.3-8.2) g/dL Albumin (3.5-5.0) g/dL Arterial Blood Glucose (75-99) mg/dL Crossmatch 01/08/19 01/08/19 01/08/19 Range/Units 10:02 10:45 11:17 RBC (4.30-5.90) m/uL Hgb (13.0-17.5) gm/dL Hct (39.0-53.0) % RDW (11.5-15.5) % Plt Count (150-450) k/uL Neutrophils # (1.3-7.7) k/uL Lymphocytes # (1.0-4.8) k/uL PT (9.0-12.0) sec INR (<1.2) APTT (22.0-30.0) sec Fibrinogen (200-500) mg/dL ABG pH (7.35-7.45) ABG pCO2 (35-45) mmHg ABG pO2 69 L (83-108) mmHg ABG HCO3 27 H (21-25) mmol/L ABG Total CO2 28 H (19-24) mmol/L ABG O2 Saturation (94-97) % ABG Hematocrit (34.0-46.0) % ABG Ionized Calcium (4.5-5.3) mg/dL ABG Glucose (75-99) mg/dL ABG Lactic Acid (0.5-1.6) mmol/L Hemoglobin (13.0-17.5) gm/dL Chloride (98-107) mmol/L Glucose (74-99) mg/dL POC Glucose (mg/dL) 131 H 124 H (75-99) mg/dL Calcium (8.4-10.2) mg/dL Ionized Calcium Dung (4.5-5.3) mg/dL Magnesium (1.6-2.3) mg/dL Total Bilirubin (0.2-1.3) mg/dL AST (17-59) U/L Alkaline Phosphatase (38-126) U/L Total Protein (6.3-8.2) g/dL Albumin (3.5-5.0) g/dL Arterial Blood Glucose (75-99) mg/dL Crossmatch 01/08/19 01/08/19 Range/Units 11:57 13:52 RBC (4.30-5.90) m/uL Hgb (13.0-17.5) gm/dL Hct (39.0-53.0) % RDW (11.5-15.5) % Plt Count (150-450) k/uL Neutrophils # (1.3-7.7) k/uL Lymphocytes # (1.0-4.8) k/uL PT (9.0-12.0) sec INR (<1.2) APTT (22.0-30.0) sec Fibrinogen (200-500) mg/dL ABG pH (7.35-7.45) ABG pCO2 (35-45) mmHg ABG pO2 (83-108) mmHg ABG HCO3 (21-25) mmol/L ABG Total CO2 (19-24) mmol/L ABG O2 Saturation (94-97) % ABG Hematocrit (34.0-46.0) % ABG Ionized Calcium (4.5-5.3) mg/dL ABG Glucose (75-99) mg/dL ABG Lactic Acid (0.5-1.6) mmol/L Hemoglobin (13.0-17.5) gm/dL Chloride (98-107) mmol/L Glucose (74-99) mg/dL POC Glucose (mg/dL) 132 H 115 H (75-99) mg/dL Calcium (8.4-10.2) mg/dL Ionized Calcium Dung (4.5-5.3) mg/dL Magnesium (1.6-2.3) mg/dL Total Bilirubin (0.2-1.3) mg/dL AST (17-59) U/L Alkaline Phosphatase (38-126) U/L Total Protein (6.3-8.2) g/dL Albumin (3.5-5.0) g/dL Arterial Blood Glucose (75-99) mg/dL Crossmatch
[2019-01-08] MEDS ORDERED: METOPROLOL TARTRATE 12.5 MG TAB PO STA (15:15)
[2019-01-08 15:34] LABS: Glucose,Whole Blood 122 mg/dL (75-99)
[2019-01-08] MEDS: HYDROcodone/APAP 5-325MG 1 EACH TAB PO PRN ×2 (16:26→20:32)
[2019-01-08 16:48] LABS: Glucose,Whole Blood 124 mg/dL (75-99)
[2019-01-08 18:47] LABS: Glucose,Whole Blood 110 mg/dL (75-99)
[2019-01-08 19:35] LABS: Glucose,Whole Blood 118 mg/dL (75-99)
[2019-01-08] MEDS: THIAMINE 100 MG TAB PO SCH (19:35)
[2019-01-08] MEDS: SIMETHICONE 80 MG CHEWABLE PO SCH ×2 (19:35→23:29)
[2019-01-08] MEDS: SENNOSIDES-DOCUSATE SODIUM 1 EACH TAB PO SCH (19:36)
[2019-01-08] MEDS: METOPROLOL TARTRATE 25 MG TAB PO SCH (19:36)
[2019-01-08 20:59] LABS: Glucose,Whole Blood 138 mg/dL (75-99)
[2019-01-08 22:36] LABS: Glucose,Whole Blood 128 mg/dL (75-99)
--- NOTE | 2019-01-08 22:49 | P.CONS ---
History of Present Illness - Reason for Consult Consult date: 01/08/19 Medical management Requesting physician: Eben Wallace - Chief Complaint Tired - History of Present Illness History of presenting complaint: This is a pleasant 63-year-old patient of Dr. painting from [place]. Patient yesterday underwent coronary bypass types 1 and also had arctic valve replacement with a bovine valve. Late in the evening patient is having signific ant blood loss and was taken back to the OR. Patient did require significant fluid resuscitation and blood products. That included 2 g of albumin, 8 units of packed red blood cell, fresh frozen plasma about 8 units, 3 units of platelet and cryoprecipitate tenderness. Today patient sitting upon a chair. Does feel weak and tired. Not much of an appetite. Patient has 1 chest tubes on either side. And also has a Y mediastinal chest tube. Patient is also on a CIWA scale. Some shortness of breath is present.. Just likes aches and pain. Has a Francisco catheter. Review of systems: GEN.: Tired EYES: None HEENT: None NECK: None RESPIRATORY: Some shortness of breath CARDIOVASCULAR: None GASTROINTESTINAL: None GENITOURINARY: Francisco catheter MUSCULOSKELETAL: None LYMPHATICS: None HEMATOLOGICAL: None PSYCHIATRY: None NEUROLOGICAL: None Past medical history: COPD, hypertension, coronary artery disease Social history: Drinks anywhere from one to 3 beers at night. Has a girlfriend call Patria with whom he lives. His quality improvement engineer. Stop smoking over 20 years ago Family history: Coronary artery disease and dementia Physical examination: VITAL SIGNS: 99.7, 86, 17, 162/55, 94% on 6 L GENERAL: BMI 35.5, sitting upon a chair, tired appearing awake. EYES: Pupils equal. Conjunctiva palel. HEENT: External appearance of nose and ears normal, oral cavity grossly normal. NECK: JVD unable to assess; masses not palpable. HEART: First and second heart sounds are normal; no edema. LUNGS: Respiratory rate increased, diminished breath sounds, chest tubes in pl liseth. ABDOMEN: Soft, nontender, liver spleen not palpable, no masses palpable. PSYCH: Alert and oriented x3; mood and affect normal. NEUROLOGICAL: Cranial nerves grossly intact; no facial asymmetry, power and sensation grossly intact. LYMPHATICS: No lymph nodes palpable in the axilla and neck Investigations, reviewed in the clinical context: White count 5.4, hemoglobin 8.1, platelets 75, PH 7.5 pCO2 34 pO2 127 potassium 4.2 bun 12 creatinine 0.74 Albumin 3.1 Accu-Cheks and noted Assessment: -Status post coronary bypass 1, arctic valve replacement with bovine valve -COPD in an ex-smoker -Essential hypertension -Obesity BMI 35.5 -Acute postop blood loss anemia expected from surgery -Dilutional thrombocytopenia -Hyperlipidemia Plan: Patient's current medications reviewed that included DuoNeb, did get IV amiodarone, aspirin, folic acid, subcu heparin, insulin drip, lactated Ri nger's,. Accu-Cheks every followed. Keep a close eye on patient's hemodynamic. Patient to use respiratory spirometer. Care was discussed with the patient. Question were answered. Thank you Dr. Wallace Past Medical History Past Medical History: Cancer, COPD, Hypertension, Pneumonia Additional Past Medical History / Comment(s): heart murmur,hx fx ribs,skin CA,pneumonia Aug 2018 History of Any Multi-Drug Resistant Organisms: None Reported Past Surgical History: Heart Catheterization, Hernia Repair, Orthopedic Surgery, Tonsillectomy Additional Past Surgical History / Comment(s): left leg surg to stretch achilles tendon,DONA Past Anesthesia/Blood Transfusion Reactions: No Reported Reaction Smoking Status: Former smoker - Past Family History Mother Family Medical History: Coronary Artery Disease (CAD), Dementia Father Family Medical History: Asthma, Cancer Medications and Allergies Home Medications Medication Instructions Recorded Confirmed Type Acetylcysteine [Nac] 500 mg PO DAILY 09/06/18 01/07/19 History Ascorbic Acid [Vitamin C] 500 mg PO DAILY 09/06/18 01/07/19 History Cholecalciferol [Vitamin D3 (25 1,000 unit PO DAILY 09/06/18 01/07/19 History Mcg = 1000 Iu)] Fluticasone/Umeclidin/Vilanter 1 puff INHALATION RT-DAILY 09/06/18 01/07/19 His tory [Trelegy Ellipta 100-62.5-25] Multivitamins, Thera [Multivitamin 1 tab PO DAILY 09/06/18 01/07/19 History (formulary)] Vitamin E 100 unit PO DAILY 09/06/18 01/07/19 History amLODIPine [Norvasc] 10 mg PO QAM 09/06/18 01/07/19 History Albuterol Inhaler [Ventolin Hfa 1 - 2 puff INHALATION RT-Q6H PRN 10/12/18 01/07/19 History Inhaler] Aspirin 81 mg PO DAILY 10/15/18 01/07/19 History Metoprolol Tartrate [Lopressor] 25 mg PO BID #60 tab 10/15/18 01/07/19 Rx Nitroglycerin Sl Tabs [Nitrostat] 0.4 mg SUBLINGUAL Q5M PRN #25 tab 10/15/18 01/07/19 Rx Naproxen Sodium [Aleve] 220 - 440 mg PO BID PRN 12/31/18 01/07/19 History Atorvastatin [Lipitor] 20 mg PO DAILY 01/07/19 01/07/19 History Allergies Allergy/AdvReac Type Severity Reaction Status Date / Time No Known Allergies Allergy Verified 01/07/19 13:14 Physical Exam Vitals: Vital Signs Temp Pulse Resp BP Pulse Ox 01/08/19 21:00 79 16 95 01/08/19 20:45 81 18 94 L 01/08/19 20:30 84 20 91 L 01/08/19 20:15 86 16 91 L 01/08/19 20:00 99.7 F H 86 17 94 L 01/08/19 19:45 87 14 93 L 01/08/19 19:30 90 17 148/85 91 L 01/08/19 19:17 90 01/08/19 19:15 83 19 148/85 99 01/08/19 19:05 90 01/08/19 19:00 80 10 L 148/85 91 L 01/08/19 18:45 82 15 148/85 93 L 01/08/19 18:30 86 48 H 148/85 01/08/19 18:15 80 16 148/85 90 L 01/08/19 18:00 98.6 F 80 15 148/85 92 L 01/08/19 17:45 80 14 148/85 90 L 01/08/19 17:30 80 13 148/85 92 L 01/08/19 17:15 82 13 91 L 01/08/19 17:00 82 15 90 L 01/08/19 16:45 84 15 148/85 91 L 01/08/19 16:30 86 23 148/85 90 L 01/08/19 16:15 88 18 92 L 01/08/19 16:00 98.8 F 86 16 94 L 01/08/19 15:45 90 13 94 L 01/08/19 15:40 90 01/08/19 15:30 84 18 96 01/08/19 15:22 82 01/08/19 15:15 81 12 92 L 01/08/19 15:00 84 23 88 L 01/08/19 14:45 80 22 92 L 01/08/19 14:30 80 16 92 L 01/08/19 14:15 80 10 L 92 L 01/08/19 14:00 98.8 F 81 10 L 91 L 01/08/19 13:45 81 18 92 L 01/08/19 13:30 80 13 92 L 01/08/19 13:15 80 13 92 L 01/08/19 13:00 80 14 93 L 01/08/19 12:45 81 12 93 L 01/08/19 12:30 81 20 92 L 01/08/19 12:15 82 13 92 L 01/08/19 12:00 99.0 F 80 19 94 L 01/08/19 11:45 81 16 93 L 01/08/19 11:30 82 24 01/08/19 11:15 80 13 91 L 01/08/19 11:11 80 01/08/19 11:00 99.1 F 80 11 L 94 L 01/08/19 10:45 80 15 95 01/08/19 10:30 80 12 93 L 01/08/19 10:15 80 14 94 L 01/08/19 10:00 98.1 F 71 13 95 01/08/19 09:45 72 14 94 L 01/08/19 09:30 73 19 99 01/08/19 09:15 80 16 100 01/08/19 09:00 73 11 L 97 01/08/19 08:45 72 14 97 01/08/19 08:30 73 13 97 01/08/19 08:15 74 13 98 01/08/19 08:00 98.8 F 75 13 98 01/08/19 07:48 82 01/08/19 07:45 80 10 L 98 01/08/19 07:30 80 10 L 99 01/08/19 07:22 80 01/08/19 07:01 80 20 100 01/08/19 06:45 71 17 100 01/08/19 06:30 71 14 100 01/08/19 06:15 73 14 100 01/08/19 06:00 75 16 100 01/08/19 05:45 71 17 100 01/08/19 05:30 77 18 99 01/08/19 05:15 77 17 98 01/08/19 05:00 71 17 99 01/08/19 04:45 75 14 99 01/08/19 04:30 71 14 100 01/08/19 04:15 79 16 99 01/08/19 04:00 77 14 99 01/08/19 03:45 78 14 99 01/08/19 03:30 77 14 99 01/08/19 03:15 79 15 99 01/08/19 03:00 80 14 99 01/08/19 02:45 80 14 99 01/08/19 02:30 79 14 99 01/08/19 02:15 81 14 99 01/08/19 02:00 81 14 99 01/08/19 01:45 81 14 100 01/08/19 01:30 79 14 99 01/08/19 01:15 80 27 H 99 01/08/19 01:00 78 14 100 01/08/19 00:45 77 14 99 01/08/19 00:30 97.0 F L 78 15 98 01/08/19 00:20 96.8 F L 77 14 100 01/08/19 00:10 67 15 92 L 01/08/19 00:00 96.4 F L 74 14 100 01/07/19 23:50 73 14 100 01/07/19 23:40 96.3 F L 72 14 100 01/07/19 23:30 73 14 99 01/07/19 23:20 96.4 F L 78 14 96 01/07/19 23:10 80 14 01/07/19 23:00 80 20 01/07/19 22:50 96.3 F L 89 14 95 01/07/19 22:40 80 14 95 Intake and Output 01/08/19 01/08/19 01/08/19 06:59 14:59 22:59 Intake Total 1664.516 734.737 743 Output Total 619 477 560 Balance 1045.516 257.737 183 Intake: IV 634.0 646.5 743 0.9% NS Pressure bag 72 72 63 ACETAMINOPHEN IV (For NPO 100 ) 1,000 mg In Empty Bag 1 bag @ 400 mls/hr IVPB Q6H [facility] Rx#:[id number] Albumin Human 5% 250 ml 250 In Empty Bag 1 bag @ 250 mls/hr IVPB Q1HR PRN Rx#: [id number] CO/CI 150 120 80 Lactated Ringers 1,000 ml 400 351.5 350 @ 20 mls/hr IV .Q24H [facility] Rx#:[id number] Nitroglycerin-D5w Pmx 50 12.0 3.0 mg In Dextrose/Water 1 250ml.bag @ Per Protocol IV ONCE ONE Rx#:[id number] Intake, IV Titration 274.516 88.237 Amount ACETAMINOPHEN IV (For NPO 100 ) 1,000 mg In Empty Bag 1 bag @ 400 mls/hr IVPB Q6H [facility] Rx#:[id number] Insulin Regular 100 unit 22.179 18.331 In Sodium Chloride 0.9% 100 ml @ Per Protocol IV .Q0M [facility] Rx#:[id number] Nitroglycerin-D5w Pmx 50 0 mg In Dextrose/Water 1 250ml.bag @ 5 MCG/MIN 1.5 mls/hr IV .Q24H [facility] Rx#: [id number] Norepinephrine 4 mg In 12.328 Sodium Chloride 0.9% 250 ml @ 0.02 MCG/KG/MIN 6. 913 mls/hr IV .Q24H [facility] Rx#:[id number] Propofol 1,000 mg In 140.009 69.906 Empty Bag 1 bag @ Titrate IV .Q0M [facility] Rx#: [id number] Blood Product 756 Ffp 24 Cpd Unit 336 [id number] Ffp 24 Cpd Unit 0 [id number] Platelet Pheresis Acda2 312 Unit [id number] Pooled Cryoprecipitate 108 Unit [id number] Pooled Cryoprecipitate 0 Unit [id number] Output: Chest Tube Drainage 402 290 360 Chest Tube Bilateral 120 90 70 Mediastinal Chest Tube Left Pleural/ 156 124 170 Mediastinal Chest Tube Right Pleural/ 126 76 120 Mediastinal Gastric Drainage 50 Urine 167 187 200 Other: Voiding Method Indwelling Catheter Indwelling Catheter Indwelling Catheter Weight 99.7 kg ABP, PAP, CO, CI - Last 8 Hours Arterial Blood Pressure 169/61 Arterial Blood Pressure 124/65 Arterial Blood Pressure 139/69 Arterial Blood Pressure 156/55 Arterial Blood Pressure 162/55 Arterial Blood Pressure 157/51 Arterial Blood Pressure 179/60 Arterial Blood Pressure 144/56 Arterial Blood Pressure 139/55 Arterial Blood Pressure 146/56 Arterial Blood Pressure 83/75 Arterial Blood Pressure 140/52 Arterial Blood Pressure 133/48 Arterial Blood Pressure 129/50 Arterial Blood Pressure 130/51 Arterial Blood Pressure 125/48 Arterial Blood Pressure 127/46 Arterial Blood Pressure 156/58 Arterial Blood Pressure 162/59 Arterial Blood Pressure 156/60 Arterial Blood Pressure 143/51 Arterial Blood Pressure 140/51 Arterial Blood Pressure 133/55 Arterial Blood Pressure 136/50 Arterial Blood Pressure 136/51 Arterial Blood Pressure 130/50 Pulmonary Artery Pressure 37/17 Pulmonary Artery Pressure 37/20 Pulmonary Artery Pressure 41/22 Pulmonary Artery Pressure 38/19 Pulmonary Artery Pressure 34/16 Pulmonary Artery Pressure 37/18 Pulmonary Artery Pressure 41/19 Pulmonary Artery Pressure 33/15 Pulmonary Artery Pressure 37/16 Pulmonary Artery Pressure 40/18 Pulmonary Artery Pressure 69/40 Pulmonary Artery Pressure 36/17 Pulmonary Artery Pressure 39/16 Pulmonary Artery Pressure 37/17 Pulmonary Artery Pressure 38/17 Pulmonary Artery Pressure 38/17 Pulmonary Artery Pressure 39/18 Pulmonary Artery Pressure 39/23 Pulmonary Artery Pressure 37/17 Pulmonary Artery Pressure 41/19 Pulmonary Artery Pressure 35/17 Pulmonary Artery Pressure 33/14 Pulmonary Artery Pressure 38/18 Pulmonary Artery Pressure 33/13 Pulmonary Artery Pressure 40/18 Pulmonary Artery Pressure 35/17 Cardiac Output 5.3 Cardiac Output 6 Cardiac Output 4.9 Cardiac Output 4.9 Cardiac Output 4.9 Cardiac Output 4.9 Cardiac Output 6.0 Cardiac Output 4.9 Cardiac Index 2.7 Cardiac Index 3 Cardiac Index 2.5 Cardiac Index 2.5 Cardiac Index 2.5 Cardiac Index 2.5 Cardiac Index 3.0 Cardiac Index 2.5 Cardiac Index 2.5 Results CBC & Chem 7: 01/08/19 06:00 01/08/19 06:00 Labs: Abnormal Lab Results - Last 24 Hours (Table) 12/31/18 01/07/19 01/07/19 Range/Units 09:09 22:10 22:59 RBC (4.30-5.90) m/uL Hgb (13.0-17.5) gm/dL Hct (39.0-53.0) % Plt Count (150-450) k/uL Lymphocytes # (1.0-4.8) k/uL PT 13.1 H (9.0-12.0) sec INR 1.3 H (<1.2) APTT 32.5 H (22.0-30.0) sec Fibrinogen 121 L (200-500) mg/dL ABG pH (7.35-7.45) ABG pCO2 (35-45) mmHg ABG pO2 78 L (83-108) mmHg ABG HCO3 (21-25) mmol/L ABG Total CO2 25 H (19-24) mmol/L ABG O2 Saturation 97.3 H (94-97) % Chloride (98-107) mmol/L Glucose (74-99) mg/dL POC Glucose (mg/dL) (75-99) mg/dL Calcium (8.4-10.2) mg/dL Magnesium (1.6-2.3) mg/dL AST (17-59) U/L Alkaline Phosphatase (38-126) U/L Total Protein (6.3-8.2) g/dL Albumin (3.5-5.0) g/dL Crossmatch See Detail 01/07/19 01/08/19 01/08/19 Range/Units 23:06 00:05 00:13 RBC 2.21 L (4.30-5.90) m/uL Hgb 6.7 L* (13.0-17.5) gm/dL Hct 19.5 L* (39.0-53.0) % Plt Count 86 L (150-450) k/uL Lymphocytes # 0.4 L (1.0-4.8) k/uL PT (9.0-12.0) sec INR (<1.2) APTT (22.0-30.0) sec Fibrinogen (200-500) mg/dL ABG pH (7.35-7.45) ABG pCO2 (35-45) mmHg ABG pO2 (83-108) mmHg ABG HCO3 (21-25) mmol/L ABG Total CO2 (19-24) mmol/L ABG O2 Saturation (94-97) % Chloride (98-107) mmol/L Glucose (74-99) mg/dL POC Glucose (mg/dL) 184 H 179 H (75-99) mg/dL Calcium (8.4-10.2) mg/dL Magnesium (1.6-2.3) mg/dL AST (17-59) U/L Alkaline Phosphatase (38-126) U/L Total Protein (6.3-8.2) g/dL Albumin (3.5-5.0) g/dL Crossmatch 01/08/19 01/08/19 01/08/19 Range/Units 01:01 02:16 03:12 RBC (4.30-5.90) m/uL Hgb (13.0-17.5) gm/dL Hct (39.0-53.0) % Plt Count (150-450) k/uL Lymphocytes # (1.0-4.8) k/uL PT (9.0-12.0) sec INR (<1.2) APTT (22.0-30.0) sec Fibrinogen (200-500) mg/dL ABG pH (7.35-7.45) ABG pCO2 (35-45) mmHg ABG pO2 (83-108) mmHg ABG HCO3 (21-25) mmol/L ABG Total CO2 (19-24) mmol/L ABG O2 Saturation (94-97) % Chloride (98-107) mmol/L Glucose (74-99) mg/dL POC Glucose (mg/dL) 152 H 128 H 122 H (75-99) mg/dL Calcium (8.4-10.2) mg/dL Magnesium (1.6-2.3) mg/dL AST (17-59) U/L Alkaline Phosphatase (38-126) U/L Total Protein (6.3-8.2) g/dL Albumin (3.5-5.0) g/dL Crossmatch 01/08/19 01/08/19 01/08/19 Range/Units 04:10 05:12 05:57 RBC (4.30-5.90) m/uL Hgb (13.0-17.5) gm/dL Hct (39.0-53.0) % Plt Count (150-450) k/uL Lymphocytes # (1.0-4.8) k/uL PT (9.0-12.0) sec INR (<1.2) APTT (22.0-30.0) sec Fibrinogen (200-500) mg/dL ABG pH (7.35-7.45) ABG pCO2 (35-45) mmHg ABG pO2 (83-108) mmHg ABG HCO3 (21-25) mmol/L ABG Total CO2 (19-24) mmol/L ABG O2 Saturation (94-97) % Chloride (98-107) mmol/L Glucose (74-99) mg/dL POC Glucose (mg/dL) 130 H 110 H 118 H (75-99) mg/dL Calcium (8.4-10.2) mg/dL Magnesium (1.6-2.3) mg/dL AST (17-59) U/L Alkaline Phosphatase (38-126) U/L Total Protein (6.3-8.2) g/dL Albumin (3.5-5.0) g/dL Crossmatch 01/08/19 01/08/19 01/08/19 Range/Units 06:00 06:00 07:11 RBC 2.66 L (4.30-5.90) m/uL Hgb 8.1 L (13.0-17.5) gm/dL Hct 23.4 L (39.0-53.0) % Plt Count 75 L (150-450) k/uL Lymphocytes # (1.0-4.8) k/uL PT (9.0-12.0) sec INR (<1.2) APTT (22.0-30.0) sec Fibrinogen (200-500) mg/dL ABG pH (7.35-7.45) ABG pCO2 (35-45) mmHg ABG pO2 (83-108) mmHg ABG HCO3 (21-25) mmol/L ABG Total CO2 (19-24) mmol/L ABG O2 Saturation (94-97) % Chloride 108 H (98-107) mmol/L Glucose 105 H (74-99) mg/dL POC Glucose (mg/dL) 116 H (75-99) mg/dL Calcium 8.0 L (8.4-10.2) mg/dL Magnesium 2.4 H (1.6-2.3) mg/dL AST 62 H (17-59) U/L Alkaline Phosphatase 34 L (38-126) U/L Total Protein 4.9 L (6.3-8.2) g/dL Albumin 3.1 L (3.5-5.0) g/dL Crossmatch 01/08/19 01/08/19 01/08/19 Range/Units 07:12 08:07 10:02 RBC (4.30-5.90) m/uL Hgb (13.0-17.5) gm/dL Hct (39.0-53.0) % Plt Count (150-450) k/uL Lymphocytes # (1.0-4.8) k/uL PT (9.0-12.0) sec INR (<1.2) APTT (22.0-30.0) sec Fibrinogen (200-500) mg/dL ABG pH 7.50 H (7.35-7.45) ABG pCO2 34 L (35-45) mmHg ABG pO2 127 H (83-108) mmHg ABG HCO3 27 H (21-25) mmol/L ABG Total CO2 28 H (19-24) mmol/L ABG O2 Saturation 99.4 H (94-97) % Chloride (98-107) mmol/L Glucose (74-99) mg/dL POC Glucose (mg/dL) 130 H 131 H (75-99) mg/dL Calcium (8.4-10.2) mg/dL Magnesium (1.6-2.3) mg/dL AST (17-59) U/L Alkaline Phosphatase (38-126) U/L Total Protein (6.3-8.2) g/dL Albumin (3.5-5.0) g/dL Crossmatch 01/08/19 01/08/19 01/08/19 Range/Units 10:45 11:17 11:57 RBC (4.30-5.90) m/uL Hgb (13.0-17.5) gm/dL Hct (39.0-53.0) % Plt Count (150-450) k/uL Lymphocytes # (1.0-4.8) k/uL PT (9.0-12.0) sec INR (<1.2) APTT (22.0-30.0) sec Fibrinogen (200-500) mg/dL ABG pH (7.35-7.45) ABG pCO2 (35-45) mmHg ABG pO2 69 L (83-108) mmHg ABG HCO3 27 H (21-25) mmol/L ABG Total CO2 28 H (19-24) mmol/L ABG O2 Saturation (94-97) % Chloride (98-107) mmol/L Glucose (74-99) mg/dL POC Glucose (mg/dL) 124 H 132 H (75-99) mg/dL Calcium (8.4-10.2) mg/dL Magnesium (1.6-2.3) mg/dL AST (17-59) U/L Alkaline Phosphatase (38-126) U/L Total Protein (6.3-8.2) g/dL Albumin (3.5-5.0) g/dL Crossmatch 01/08/19 01/08/19 01/08/19 Range/Units 13:52 15:04 16:19 RBC (4.30-5.90) m/uL Hgb (13.0-17.5) gm/dL Hct (39.0-53.0) % Plt Count (150-450) k/uL Lymphocytes # (1.0-4.8) k/uL PT (9.0-12.0) sec INR (<1.2) APTT (22.0-30.0) sec Fibrinogen (200-500) mg/dL ABG pH (7.35-7.45) ABG pCO2 (35-45) mmHg ABG pO2 (83-108) mmHg ABG HCO3 (21-25) mmol/L ABG Total CO2 (19-24) mmol/L ABG O2 Saturation (94-97) % Chloride (98-107) mmol/L Glucose (74-99) mg/dL POC Glucose (mg/dL) 115 H 122 H 124 H (75-99) mg/dL Calcium (8.4-10.2) mg/dL Magnesium (1.6-2.3) mg/dL AST (17-59) U/L Alkaline Phosphatase (38-126) U/L Total Protein (6.3-8.2) g/dL Albumin (3.5-5.0) g/dL Crossmatch 01/08/19 01/08/19 01/08/19 Range/Units 18:16 19:22 20:46 RBC (4.30-5.90) m/uL Hgb (13.0-17.5) gm/dL Hct (39.0-53.0) % Plt Count (150-450) k/uL Lymphocytes # (1.0-4.8) k/uL PT (9.0-12.0) sec INR (<1.2) APTT (22.0-30.0) sec Fibrinogen (200-500) mg/dL ABG pH (7.35-7.45) ABG pCO2 (35-45) mmHg ABG pO2 (83-108) mmHg ABG HCO3 (21-25) mmol/L ABG Total CO2 (19-24) mmol/L ABG O2 Saturation (94-97) % Chloride (98-107) mmol/L Glucose (74-99) mg/dL POC Glucose (mg/dL) 110 H 118 H 138 H (75-99) mg/dL Calcium (8.4-10.2) mg/dL Magnesium (1.6-2.3) mg/dL AST (17-59) U/L Alkaline Phosphatase (38-126) U/L Total Protein (6.3-8.2) g/dL Albumin (3.5-5.0) g/dL Crossmatch 01/08/19 Range/Units 22:05 RBC (4.30-5.90) m/uL Hgb (13.0-17.5) gm/dL Hct (39.0-53.0) % Plt Count (150-450) k/uL Lymphocytes # (1.0-4.8) k/uL PT (9.0-12.0) sec INR (<1.2) APTT (22.0-30.0) sec Fibrinogen (200-500) mg/dL ABG pH (7.35-7.45) ABG pCO2 (35-45) mmHg ABG pO2 (83-108) mmHg ABG HCO3 (21-25) mmol/L ABG Total CO2 (19-24) mmol/L ABG O2 Saturation (94-97) % Chloride (98-107) mmol/L Glucose (74-99) mg/dL POC Glucose (mg/dL) 128 H (75-99) mg/dL Calcium (8.4-10.2) mg/dL Magnesium (1.6-2.3) mg/dL AST (17-59) U/L Alkaline Phosphatase (38-126) U/L Total Protein (6.3-8.2) g/dL Albumin (3.5-5.0) g/dL Crossmatch
[2019-01-08] MEDS: INSULIN REGULAR 100 UNIT in SODIUM CHLORIDE 0.9% 100 ML IV SCH (23:28)
[2019-01-09 00:10] LABS: Glucose,Whole Blood 119 mg/dL (75-99)
[2019-01-09] MEDS: hydrALAZINE HCL 20 MG/ML 1 ML VIAL IVP PRN ×2 (00:17→05:45)
[2019-01-09] MEDS: HYDROcodone/APAP 5-325MG 1 EACH TAB PO PRN ×4 (00:51→22:15)
[2019-01-09] MEDS: LORazepam 2 MG/ML INJ IV PRN ×2 (00:52→03:55)
[2019-01-09 02:35] LABS: Glucose,Whole Blood 157 mg/dL (75-99)
[2019-01-09] MEDS: HEPARIN SODIUM,PORCINE 5,000 UNIT/ML 1 ML VIAL SQ SCH ×3 (03:59→19:17)
[2019-01-09] MEDS: LACTATED RINGERS 1,000 ML IV SCH (04:05)
[2019-01-09 04:16] LABS: Glucose,Whole Blood 148 mg/dL (75-99)
[2019-01-09 05:04] LABS: Basophils % (A) 0 %; Eosinophils % (A) 0 %; HCT 26.3 % (39.0-53.0); HGB 8.9 gm/dL (13.0-17.5); Lymphocytes # (A) 1.5 k/uL (1.0-4.8); Lymphocytes % (A) 10 %; MCH 30.2 pg (25.0-35.0); MCHC 33.7 g/dL (31.0-37.0); MCV 89.7 fL (80.0-100.0); Mean Platelet Volume 8.6; Monocytes # (A) 0.8 k/uL (0-1.0); Monocytes % (A) 6 %; Neutrophils % (A) 82 %; RBC 2.93 m/uL (4.30-5.90); RDW 15.3 % (11.5-15.5); WBC 14.5 k/uL (3.8-10.6)
[2019-01-09 05:15] LABS: Ionized Calcium 4.8 mg/dL (4.5-5.3)
[2019-01-09 05:17] LABS: Platelet Count 91 k/uL (150-450)
[2019-01-09 05:24] LABS: ALT 42 U/L (21-72); AST 88 U/L (17-59); African American GFR (CKD) >90 (>60 ml/min/1.73 sqM); Albumin 3.5 g/dL (3.5-5.0); Alkaline Phosphatase 47 U/L (38-126); Anion Gap 9 mmol/L; Blood Urea Nitrogen 14 mg/dL (9-20); Calcium 8.4 mg/dL (8.4-10.2); Carbon Dioxide 24 mmol/L (22-30); Chloride 105 mmol/L (98-107); Glucose 137 mg/dL (74-99); Potassium 3.9 mmol/L (3.5-5.1); Sodium 138 mmol/L (137-145); Total Bilirubin 1.2 mg/dL (0.2-1.3); Total Protein 5.7 g/dL (6.3-8.2)
[2019-01-09] MEDS: THIAMINE 100 MG TAB PO SCH ×2 (05:50→16:55)
[2019-01-09 06:03] LABS: Glucose,Whole Blood 137 mg/dL (75-99)
[2019-01-09] MEDS: METOPROLOL TARTRATE 25 MG TAB PO SCH (06:28)
[2019-01-09] MEDS: CLEVIDIPINE BUTYRATE 25 MG in EMPTY BAG 1 BAG IV SCH (06:42)
[2019-01-09] MEDS ORDERED: METOPROLOL TARTRATE 25 MG TAB PO STA (07:08)
--- NOTE | 2019-01-09 07:54 | XR ---
EXAMINATION TYPE: XR chest 1V portable DATE OF EXAM: 01/09/2019 COMPARISON: 01/18/2019 HISTORY: Post cardiac surgery TECHNIQUE: Single frontal view of the chest is obtained. FINDINGS: Bilateral consolidation and pleural effusion stable. Cardiomegaly noted. Chronic rib cage deformities are seen. No sizable pneumothorax. ET and NG tube have been removed. Bilateral Chest tube , the style drain, and [place] catheter stable. IMPRESSION: 1. Stable postoperative change with diffuse pleural-parenchymal changes similar to the prior exam. Di ffuse airspace disease with bilateral pleural effusions correlate for CHF with underlying infiltrate or atelectasis..
[2019-01-09] MEDS: IPRATROPIUM-ALBUTEROL 3 ML NEB INHALATION SCH ×4 (08:10→20:02)
[2019-01-09] MEDS: PANTOPRAZOLE 40 MG TABLET PO SCH (08:22)
[2019-01-09] MEDS: ATORVASTATIN 40 MG TAB PO SCH (08:23)
[2019-01-09] MEDS ORDERED: FUROSEMIDE 10 MG/ML 2 ML VIAL IV STA (08:23)
[2019-01-09] MEDS: SODIUM CHLORIDE 0.9% 500 ML 500 ML IV SCH ×2 (08:23→14:25)
[2019-01-09] MEDS: ASPIRIN 325 MG TAB PO SCH (08:23)
[2019-01-09] MEDS: SIMETHICONE 80 MG CHEWABLE PO SCH ×4 (08:24→22:24)
[2019-01-09] MEDS: FOLIC ACID 1 MG TAB PO SCH (08:24)
[2019-01-09] MEDS: MULTIVITAMINS, THERA 1 EACH TAB PO SCH (08:24)
--- NOTE | 2019-01-09 09:01 | P.PN ---
Subjective Progress Note Date: 01/09/19 Principal diagnosis: Aortic valve stenosis, coronary artery disease. Previous medical history of hypertension, COPD, previous tobacco dependence, daily EtOH use, recent pneumonia, skin cancer with removal in July 2018, obesity, and family history of coronary artery disease. POD #2 aortic valve replacement with 23 mm Avalus bovine pericardial valve, coronary artery bypass grafting 1 with the left internal mammary artery to the left anterior descending artery, ligation of the left atrial appendage with a 35 mm AtriCure clip, epi-aortic ultrasonography. Postoperative hemorrhage, acute blood loss anemia, unexpected Postoperative thrombocytopenia, expected POD #2 sternal exploration with repair of a hole in the right atrium The patient is currently sitting up in a recliner in the intensive care unit in no significant distress. He does complain of some incisional type pain, denies shortness of breath. He was very restless last night and getting himself out of bed without assistance, sitter placed to bedside. Blood pressure started to creep up overnight and patient was started on IV Cleviprex this morning. Objective - Vital Signs Vital signs: Vital Signs Temp 99.7 F H 01/09/19 05:00 Pulse 82 01/09/19 08:21 Resp 27 H 01/09/19 07:00 BP 133/62 01/09/19 06:40 Pulse Ox 92 L 01/09/19 07:00 Intake & Output 01/08/19 01/09/19 01/09/19 18:59 06:59 18:59 Intake Total 4363.196 7907.689 Output Total 867 735 Balance 383.737 434.689 Weight 99.2 kg Intake: IV 1162.5 867 0.9% NS Pressure bag 108 117 ACETAMINOPHEN IV (For NPO 100 ) 1,000 mg In Empty Bag 1 bag @ 400 mls/hr IVPB Q6H [facility] Rx#:[id number] Albumin Human 5% 250 ml 250 In Empty Bag 1 bag @ 250 mls/hr IVPB Q1HR PRN Rx#: [id number] CO/CI 150 150 Lactated Ringers 1,000 ml 551.5 600 @ 20 mls/hr IV .Q24H [facility] Rx#:[id number] Nitroglycerin-D5w Pmx 50 3.0 mg In Dextrose/Water 1 250ml.bag @ Per Protocol IV ONCE ONE Rx#:[id number] Intake, IV Titration 88.237 22.689 Amount Clevidipine Butyrate 25 0.267 mg In Empty Bag 1 bag @ 1 MG/HR 2 mls/hr IV .Q24H [facility] Rx#:[id number] Insulin Regular 100 unit 18.331 22.422 In Sodium Chloride 0.9% 100 ml @ Per Protocol IV .Q0M [facility] Rx#:[id number] Nitroglycerin-D5w Pmx 50 0 mg In Dextrose/Water 1 250ml.bag @ 5 MCG/MIN 1.5 mls/hr IV .Q24H [facility] Rx#: [id number] Propofol 1,000 mg In 69.906 Empty Bag 1 bag @ Titrate IV .Q0M [facility] Rx#: [id number] Oral 280 Output: Chest Tube Drainage 550 420 Chest Tube Bilateral 140 90 Mediastinal Chest Tube Left Pleural/ 244 180 Mediastinal Chest Tube Right Pleural/ 166 150 Mediastinal Urine 317 315 Other: Voiding Method Indwelling Catheter Indwelling Catheter ABP, PAP, CO, CI - Last Documented Arterial Blood Pressure 150/51 Pulmonary Artery Pressure 33/17 Cardiac Output 5 Cardiac Index 2.5 - Constitutional General appearance: Present: cooperative, no acute distress, obese - Respiratory Details: Lungs sounds diminished bilaterally. Respirations even, nonlabored. Currently on 9 L high flow nasal cannula with oxygen saturation 92%. Only able to achieve 500 mL on his incentive spirometry. Mediastinal chest tube to continuous wall suction, 70 mL serosanguineous drainage overnight, 200 mL in the last 24 hours. Left pleural chest tube to continuous wall suction, 100 mL serosanguineous drainage overnight, 500 mL in the last 24 hours. Right pleural chest tube to continuous wall suction, 90 mL serosanguineous drainage overnight, 330 mL in the last 24 hours. No air leaks present. - Cardiovascular Details: S1, S2 present. Sinus rhythm on telemetry. Sternum stable. Epicardial pacemaker wires present and connected to generator, VVI mode with a backup rate 60 bpm. Palpable peripheral pulses bilaterally. Bilateral upper extremity trace edema present, no lower extremity edema present. No calf pain or tenderness noted. Right internal jugular [place]/Cordis, right radial arterial line present. Last CO/CI 5.0/2.5 on no inotropes or pressors. Heart hugger in place with patient not demonstrating appropriate use yet, antiembolism stockings, SCDs present. - Gastrointestinal Gastrointestinal Comment(s): Abdomen soft, nontender, nondistended, round. Hypoactive bowel sounds present 4 quadrants. Tolerating clear liquid diet. Positive flatus, negative bowel movement. - Genitourinary Genitourinary Comment(s): Francisco present draining clear, yellow urine. Output overnight 10-30 mL/h. - Integumentary Integumentary Comment(s): Skin is warm and dry with evidence of good perfusion. Anterior chest incision well approximated and covered with dry intact dressing. - Neurologic Neurologic: Present: CNII-XII intact - Musculoskeletal Musculoskeletal: Present: generalized weakness, strength equal bilaterally - Psychiatric Psychiatric Comment(s): Per nursing patient was alert and oriented during the night. Upon my assessment he couldn't tell me where he was, thought the years was 1998, and took quite a while to remember that he had open heart surgery. One-to-one sitter at bedside. - Allied health notes Allied health notes reviewed: nursing - Labs CBC & Chem 7: 01/09/19 04:30 01/09/19 04:30 Labs: Abnormal Lab Results - Last 24 Hours (Table) 12/31/18 01/08/19 01/08/19 Range/Units 09:09 10:02 10:45 WBC (3.8-10.6) k/uL RBC (4.30-5.90) m/uL Hgb (13.0-17.5) gm/dL Hct (39.0-53.0) % Plt Count (150-450) k/uL Neutrophils # (1.3-7.7) k/uL ABG pO2 69 L (83-108) mmHg ABG HCO3 27 H (21-25) mmol/L ABG Total CO2 28 H (19-24) mmol/L Glucose (74-99) mg/dL POC Glucose (mg/dL) 131 H (75-99) mg/dL AST (17-59) U/L Total Protein (6.3-8.2) g/dL Crossmatch See Detail 01/08/19 01/08/19 01/08/19 Range/Units 11:17 11:57 13:52 WBC (3.8-10.6) k/uL RBC (4.30-5.90) m/uL Hgb (13.0-17.5) gm/dL Hct (39.0-53.0) % Plt Count (150-450) k/uL Neutrophils # (1.3-7.7) k/uL ABG pO2 (83-108) mmHg ABG HCO3 (21-25) mmol/L ABG Total CO2 (19-24) mmol/L Glucose (74-99) mg/dL POC Glucose (mg/dL) 124 H 132 H 115 H (75-99) mg/dL AST (17-59) U/L Total Protein (6.3-8.2) g/dL Crossmatch 01/08/19 01/08/19 01/08/19 Range/Units 15:04 16:19 18:16 WBC (3.8-10.6) k/uL RBC (4.30-5.90) m/uL Hgb (13.0-17.5) gm/dL Hct (39.0-53.0) % Plt Count (150-450) k/uL Neutrophils # (1.3-7.7) k/uL ABG pO2 (83-108) mmHg ABG HCO3 (21-25) mmol/L ABG Total CO2 (19-24) mmol/L Glucose (74-99) mg/dL POC Glucose (mg/dL) 122 H 124 H 110 H (75-99) mg/dL AST (17-59) U/L Total Protein (6.3-8.2) g/dL Crossmatch 01/08/19 01/08/19 01/08/19 Range/Units 19:22 20:46 22:05 WBC (3.8-10.6) k/uL RBC (4.30-5.90) m/uL Hgb (13.0-17.5) gm/dL Hct (39.0-53.0) % Plt Count (150-450) k/uL Neutrophils # (1.3-7.7) k/uL ABG pO2 (83-108) mmHg ABG HCO3 (21-25) mmol/L ABG Total CO2 (19-24) mmol/L Glucose (74-99) mg/dL POC Glucose (mg/dL) 118 H 138 H 128 H (75-99) mg/dL AST (17-59) U/L Total Protein (6.3-8.2) g/dL Crossmatch 01/08/19 01/09/19 01/09/19 Range/Units 23:58 02:23 04:05 WBC (3.8-10.6) k/uL RBC (4.30-5.90) m/uL Hgb (13.0-17.5) gm/dL Hct (39.0-53.0) % Plt Count (150-450) k/uL Neutrophils # (1.3-7.7) k/uL ABG pO2 (83-108) mmHg ABG HCO3 (21-25) mmol/L ABG Total CO2 (19-24) mmol/L Glucose (74-99) mg/dL POC Glucose (mg/dL) 119 H 157 H 148 H (75-99) mg/dL AST (17-59) U/L Total Protein (6.3-8.2) g/dL Crossmatch 01/09/19 01/09/19 01/09/19 Range/Units 04:30 04:30 05:52 WBC 14.5 H (3.8-10.6) k/uL RBC 2.93 L (4.30-5.90) m/uL Hgb 8.9 L (13.0-17.5) gm/dL Hct 26.3 L (39.0-53.0) % Plt Count 91 L (150-450) k/uL Neutrophils # 12.0 H (1.3-7.7) k/uL ABG pO2 (83-108) mmHg ABG HCO3 (21-25) mmol/L ABG Total CO2 (19-24) mmol/L Glucose 137 H (74-99) mg/dL POC Glucose (mg/dL) 137 H (75-99) mg/dL AST 88 H (17-59) U/L Total Protein 5.7 L (6.3-8.2) g/dL Crossmatch - Imaging and Cardiology Chest x-ray: report reviewed, image reviewed Assessment and Plan Assessment: 1. Aortic valve stenosis, status post bioprosthetic aortic valve replacement 2. Coronary artery disease, status post single vessel CABG 3. History of hypertension 4. History of COPD 5. Previous tobacco dependence 6. Daily EtOH use 7. Recent pneumonia 8. Skin cancer with removal in July 2018 9. Family history of coronary artery disease 10. Postoperative hemorrhage, acute blood loss anemia, status post sternal ex ploration with repair of hole in the right atrium 11. Postoperative thrombocytopenia Plan: 1. Continue aspirin, statin, and adrianna therapy. Will increase beta adrianna therapy as tolerated, increased today to 50 mg twice daily. Will hold Plavix today secondary to thrombocytopenia. 2. Will add Norvasc for better blood pressure control. Wean Cleviprex as able. 3. Wean O2 as tolerated. Encourage incentive spirometry use 10 times every hour while awake. 4. Increase activity, out of bed to chair. PT/OT/cardiac rehab following. 5. Bronchodilators per pulmonology. 6. Insulin management per primary care service. 7. Will monitor daily labs and x-rays. Electrolytes replacement per protocol. No further transfusions at this time. 8. GI/DVT prophylaxis. 9. [facility] protocol for alcohol withdrawal. Keep 1:1 sitter. 10. Pain control with current medication regimen. 11. Increase diet as tolerated. 12. Will discontinue mediastinal chest tube. Will keep pleural chest tubes. 13. Discontinue [place]. Connect Cordis to continue CVP monitoring. 14. Will give IV Lasix today. Discontinue Francisco after diuresis. 15. More recommendations to follow based on patient's progress. Time with Patient: Greater than 30
[2019-01-09 10:31] LABS: Glucose,Whole Blood 177 mg/dL (75-99)
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
[2019-01-09 11:26] LABS: Glucose,Whole Blood 155 mg/dL (75-99)
[2019-01-09] MEDS: amLODIPine 5 MG TAB PO SCH (11:32)
[2019-01-09 11:45] VITALS: BMI 35.3
[2019-01-09 12:39] LABS: Glucose,Whole Blood 130 mg/dL (75-99)
[2019-01-09 13:53] LABS: Glucose,Whole Blood 165 mg/dL (75-99)
--- NOTE | 2019-01-09 13:59 | P.PN ---
Subjective This is Tere Muller PA-C dictating a progress note on this patient The patient was interviewed and examined by me IMPRESSION / ASSESSMENT: CAD status post CABG Aortic stenosis status post aortic valve replacement Hypertension COPD Alcohol dependence PLAN: Continue atorvastatin 40 mg daily Continue metoprolol tartrate 50 mg by mouth twice a day Continue aspirin HPI/interval history Patient is a 63-year-old male who is postop day 2 from a aortic valve replacement with a bovine pericardial valve, coronary artery bypass grafting with a GILL graft to the LAD, ligation of the left atrial appendage. He developed a postoperative hemorrhage with postoperative thrombocytopenia requiring reexploration and repair of an opening in the right atrium. He is resting comfortably in his chair today. Denies chest pain or shortness of breath EXAMINATION Temperature 98.4F, heart rate 80, respiratory rate 15, blood pressure 131/47, oxygen saturation 95% on room air Patient seen and examined resting comfortably in his chair Breath sounds mildly reduced bilaterally, equal Heart sounds soft, no murmurs appreciated Chest bandages are dry and intact REVIEW OF LABS, ECG Hemoglobin 8.9, WBC 14.5, electrolytes within normal limits, B1 14, creatinine 0.7 Preoperative TE E shows shows severe aortic stenosis, mild AR, preserved LV function, LA enlargement Objective - Vital Signs Vital signs: Vital Signs Temp 98.4 F 01/09/19 08:00 Pulse 85 01/09/19 13:30 Resp 14 01/09/19 13:30 BP 119/74 01/09/19 13:30 Pulse Ox 95 01/09/19 13:30 Intake & Output 01/08/19 01/09/19 01/09/19 18:59 06:59 18:59 Intake Total 5038.049 9117.689 293.197 Output Total 867 735 360 Balance 383.737 434.689 -66.803 Weight 99.2 kg 99.2 kg Intake: IV 1162.5 867 174 0.9% NS Pressure bag 108 117 54 ACETAMINOPHEN IV (For NPO 100 ) 1,000 mg In Empty Bag 1 bag @ 400 mls/hr IVPB Q6H [facility] Rx#:[id number] Albumin Human 5% 250 ml 250 In Empty Bag 1 bag @ 250 mls/hr IVPB Q1HR PRN Rx#: [id number] CO/CI 150 150 Lactated Ringers 1,000 ml 551.5 600 120 @ 20 mls/hr IV .Q24H [facility] Rx#:[id number] Nitroglycerin-D5w Pmx 50 3.0 mg In Dextrose/Water 1 250ml.bag @ Per Protocol IV ONCE ONE Rx#:[id number] Intake, IV Titration 88.237 22.689 29.197 Amount Clevidipine Butyrate 25 0.267 14.333 mg In Empty Bag 1 bag @ 1 MG/HR 2 mls/hr IV .Q24H [facility] Rx#:[id number] Insulin Regular 100 unit 18.331 22.422 14.864 In Sodium Chloride 0.9% 100 ml @ Per Protocol IV .Q0M [facility] Rx#:[id number] Nitroglycerin-D5w Pmx 50 0 mg In Dextrose/Water 1 250ml.bag @ 5 MCG/MIN 1.5 mls/hr IV .Q24H [facility] Rx#: [id number] Propofol 1,000 mg In 69.906 Empty Bag 1 bag @ Titrate IV .Q0M [facility] Rx#: [id number] Oral 280 90 Output: Chest Tube Drainage 550 420 160 Chest Tube Bilateral 140 90 0 Mediastinal Chest Tube Left Pleural/ 244 180 100 Mediastinal Chest Tube Right Pleural/ 166 150 60 Mediastinal Urine 317 315 200 Other: Voiding Method Indwelling Catheter Indwelling Catheter ABP, PAP, CO, CI - Last Documented Arterial Blood Pressure 186/66 Pulmonary Artery Pressure 37/17 Cardiac Output 5.6 Cardiac Index 2.8 - Labs CBC & Chem 7: 01/09/19 04:30 01/09/19 04:30 Labs: Abnormal Lab Results - Last 24 Hours (Table) 01/08/19 01/08/19 01/08/19 Range/Units 13:52 15:04 16:19 WBC (3.8-10.6) k/uL RBC (4.30-5.90) m/uL Hgb (13.0-17.5) gm/dL Hct (39.0-53.0) % Plt Count (150-450) k/uL Neutrophils # (1.3-7.7) k/uL Glucose (74-99) mg/dL POC Glucose (mg/dL) 115 H 122 H 124 H (75-99) mg/dL AST (17-59) U/L Total Protein (6.3-8.2) g/dL 01/08/19 01/08/19 01/08/19 Range/Units 18:16 19:22 20:46 WBC (3.8-10.6) k/uL RBC (4.30-5.90) m/uL Hgb (13.0-17.5) gm/dL Hct (39.0-53.0) % Plt Count (150-450) k/uL Neutrophils # (1.3-7.7) k/uL Glucose (74-99) mg/dL POC Glucose (mg/dL) 110 H 118 H 138 H (75-99) mg/dL AST (17-59) U/L Total Protein (6.3-8.2) g/dL 01/08/19 01/08/19 01/09/19 Range/Units 22:05 23:58 02:23 WBC (3.8-10.6) k/uL RBC (4.30-5.90) m/uL Hgb (13.0-17.5) gm/dL Hct (39.0-53.0) % Plt Count (150-450) k/uL Neutrophils # (1.3-7.7) k/uL Glucose (74-99) mg/dL POC Glucose (mg/dL) 128 H 119 H 157 H (75-99) mg/dL AST (17-59) U/L Total Protein (6.3-8.2) g/dL 01/09/19 01/09/19 01/09/19 Range/Units 04:05 04:30 04:30 WBC 14.5 H (3.8-10.6) k/uL RBC 2.93 L (4.30-5.90) m/uL Hgb 8.9 L (13.0-17.5) gm/dL Hct 26.3 L (39.0-53.0) % Plt Count 91 L (150-450) k/uL Neutrophils # 12.0 H (1.3-7.7) k/uL Glucose 137 H (74-99) mg/dL POC Glucose (mg/dL) 148 H (75-99) mg/dL AST 88 H (17-59) U/L Total Protein 5.7 L (6.3-8.2) g/dL 01/09/19 01/09/1919 Range/Units 05:52 10:19 11:15 WBC (3.8-10.6) k/uL RBC (4.30-5.90) m/uL Hgb (13.0-17.5) gm/dL Hct (39.0-53.0) % Plt Count (150-450) k/uL Neutrophils # (1.3-7.7) k/uL Glucose (74-99) mg/dL POC Glucose (mg/dL) 137 H 177 H 155 H (75-99) mg/dL AST (17-59) U/L Total Protein (6.3-8.2) g/dL 01/09/19 01/09/19 Range/Units 12:17 13:42 WBC (3.8-10.6) k/uL RBC (4.30-5.90) m/uL Hgb (13.0-17.5) gm/dL Hct (39.0-53.0) % Plt Count (150-450) k/uL Neutrophils # (1.3-7.7) k/uL Glucose (74-99) mg/dL POC Glucose (mg/dL) 130 H 165 H (75-99) mg/dL AST (17-59) U/L Total Protein (6.3-8.2) g/dL
[2019-01-09] MEDS: BISACODYL 10 MG SUPP RECTAL PRN (14:22)
[2019-01-09 15:02] LABS: Glucose,Whole Blood 162 mg/dL (75-99)
[2019-01-09 16:04] LABS: Glucose,Whole Blood 158 mg/dL (75-99)
[2019-01-09 17:01] LABS: Glucose,Whole Blood 137 mg/dL (75-99)
[2019-01-09 18:33] LABS: Glucose,Whole Blood 163 mg/dL (75-99)
[2019-01-09 19:10] LABS: Glucose,Whole Blood 157 mg/dL (75-99)
--- NOTE | 2019-01-09 21:00 | P.PN ---
Progress Note - Text Progress Note Date: 01/09/19 - Chief Complaint Tired - History of Present Illness History of presenting complaint: This is a pleasant 63-year-old patient of Dr. painting from [place]. Patient underwent coronary bypass types 1 and also had aortic valve replacement with a bovine valve. Late in the evening patient is having significant blood loss and was taken back to the OR. Patient did require significant fluid resuscitation and blood products. That included 2 g of albumin, 8 units of packed red blood cell, fresh frozen plasma about 8 units, 3 units of platelet and cryoprecipitate tenderness. Today-sitting up in a chair. Return some diet. Short of breath. Has is too mediastinal and [address] pleural chest tubes in place. Telemetry shows sinus rhythm. Tired. Review of systems: Was done for constitutional, cardiovascular, GI, pulmonary. relevant finding as above Current medications are reviewed that included: Insulin drip Physical examination: VITAL SIGNS: Afebrile, 94, 15, 1:30/67, 92% on 6 L GENERAL: Sitting up in a chair, tired awake short of breath. EYES: Pupils equal. Conjunctiva palel. HEENT: External appearance of nose and ears normal, oral cavity grossly normal. NECK: JVD unable to assess; masses not palpable. HEART: First and second heart sounds are normal; no edema. LUNGS: Respiratory rate increased, diminished breath sounds, basal crackles chest tubes in place. ABDOMEN: Soft, nontender, liver spleen not palpable, no masses palpable. PSYCH: Alert and oriented x3; mood and affect anxious. Investigations, reviewed in the clinical context: 14.5 white count, hemoglobin 8.9, platelets 91 potassium 3.9 creatinine 0.7 Assessment: -Status post coronary bypass 1, aortic valve replacement with bovine valve -COPD in an ex-smoker -Essential hypertension -Obesity BMI 35.5 -Acute postop blood loss anemia expected from surgery -Dilutional thrombocytopenia -Hyperlipidemia Plan: Continue current medication treatment plan. Patient to use the respiratory spirometer. Keep a close eye on the labs. Thank you Dr. Wallace
[2019-01-09 21:12] LABS: Glucose,Whole Blood 136 mg/dL (75-99)
[2019-01-09] MEDS: SENNOSIDES-DOCUSATE SODIUM 1 EACH TAB PO SCH (22:14)
[2019-01-09] MEDS: METOPROLOL TARTRATE 50 MG TAB PO SCH (22:14)
[2019-01-09 22:32] LABS: Glucose,Whole Blood 129 mg/dL (75-99)
[2019-01-10] MEDS: HEPARIN SODIUM,PORCINE 5,000 UNIT/ML 1 ML VIAL SQ SCH ×3 (03:05→21:14)
[2019-01-10] MEDS: HYDROcodone/APAP 5-325MG 1 EACH TAB PO PRN ×4 (03:06→21:15)
[2019-01-10 05:38] LABS: Anisocytosis Slight; Basophils % (A) 0 %; Eosinophils # (A) 0.1 k/uL (0-0.7); Eosinophils % (A) 1 %; HCT 24.7 % (39.0-53.0); HGB 8.8 gm/dL (13.0-17.5); Lymphocytes # (A) 1.7 k/uL (1.0-4.8); Lymphocytes % (A) 12 %; MCH 31.3 pg (25.0-35.0); MCHC 35.5 g/dL (31.0-37.0); MCV 88.3 fL (80.0-100.0); Mean Platelet Volume 8.8; Monocytes # (A) 0.9 k/uL (0-1.0); Monocytes % (A) 6 %; Neutrophils # (A) 11.5 k/uL (1.3-7.7); Neutrophils % (A) 80 %; RDW 16.3 % (11.5-15.5); WBC 14.4 k/uL (3.8-10.6)
[2019-01-10 05:41] LABS: Platelet Count 87 k/uL (150-450)
[2019-01-10 05:48] LABS: ALT 46 U/L (21-72); AST 60 U/L (17-59); African American GFR (CKD) >90 (>60 ml/min/1.73 sqM); Albumin 3.3 g/dL (3.5-5.0); Alkaline Phosphatase 48 U/L (38-126); Anion Gap 9 mmol/L; Blood Urea Nitrogen 15 mg/dL (9-20); Calcium 8.1 mg/dL (8.4-10.2); Carbon Dioxide 24 mmol/L (22-30); Chloride 103 mmol/L (98-107); Glucose 129 mg/dL (74-99); Magnesium 2.2 mg/dL (1.6-2.3); Sodium 136 mmol/L (137-145); Total Bilirubin 1.1 mg/dL (0.2-1.3); Total Protein 5.5 g/dL (6.3-8.2)
[2019-01-10] MEDS: INSULIN ASPART (NovoLOG) 100 UNIT/ML VIAL SQ SCH ×4 (06:26→21:14)
[2019-01-10] MEDS: CLEVIDIPINE BUTYRATE 25 MG in EMPTY BAG 1 BAG IV SCH (06:26)
[2019-01-10] MEDS: PANTOPRAZOLE 40 MG TABLET PO SCH (06:40)
[2019-01-10] MEDS: THIAMINE 100 MG TAB PO SCH ×2 (06:40→17:28)
[2019-01-10] MEDS: IPRATROPIUM-ALBUTEROL 3 ML NEB INHALATION SCH ×4 (07:42→19:38)
[2019-01-10] MEDS: ASPIRIN 325 MG TAB PO SCH (07:47)
[2019-01-10] MEDS: METOPROLOL TARTRATE 50 MG TAB PO SCH ×2 (07:48→21:16)
[2019-01-10] MEDS: ATORVASTATIN 40 MG TAB PO SCH (07:48)
[2019-01-10] MEDS: FOLIC ACID 1 MG TAB PO SCH (07:48)
[2019-01-10] MEDS: SIMETHICONE 80 MG CHEWABLE PO SCH ×4 (07:49→21:16)
[2019-01-10] MEDS: MULTIVITAMINS, THERA 1 EACH TAB PO SCH (07:49)
--- NOTE | 2019-01-10 09:48 | XR ---
EXAMINATION TYPE: XR chest 1V portable DATE OF EXAM: 01/10/2019 COMPARISON: 01/09/2019 HISTORY: Postop TECHNIQUE: Single frontal view of the chest is obtained. FINDINGS: Bilateral consolidation and pleural effusion stable. Cardiomegaly noted. Chronic rib cage deformities are seen. No sizable pneumothorax. Bilateral Chest tubes noted. Mediastinal drain not as well-seen on today's exam. [place]-Anmol catheters been removed. There is a approximate 5% right apical p neumothorax and 5-10% left apical pneumothorax. IMPRESSION: 1. There is interval development of a 5% right apical and 5-10% left apical pneumothorax. Chest tubes are noted. 2. Diffuse pleural-parenchymal changes correlate for CHF otherwise consider pneumonia.
[2019-01-10] MEDS ORDERED: FUROSEMIDE 10 MG/ML 2 ML VIAL IV STA (09:56)
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
[2019-01-10] MEDS: amLODIPine 5 MG TAB PO SCH (12:36)
[2019-01-10 12:40] LABS: Glucose,Whole Blood 133 mg/dL (75-99)
--- NOTE | 2019-01-10 13:55 | P.PN ---
Subjective This is Tere Muller PA-C dictating a progress note on this patient The patient was interviewed and examined by me IMPRESSION / ASSESSMENT: CAD status post CABG Aortic stenosis status post AVR Hypertension COPD Alcohol dependence PLAN: Continue with aspirin and atorvastatin Continue metoprolol 50 mg by mouth twice a day and maximize as tolerated HPI/interval history Patient is a 63-year-old male who is postop day 3 from an aortic valve replacement with a bovine pericardial valve, coronary artery bypass grafting with a GILL graft to the LAD, ligation of the left atrial appendage. He developed a postoperative hemorrhage with postoperative thrombocytopenia requiring reexploration and repair of an opening in the right atrium. He is resting comfortably in his chair today. Does have some postoperative soreness in his chest but states it has been improving over the last 2 days. He has been able to get up and walk. Denies any shortness of breath. EXAMINATION Temperature 98.3F, pulse 81, respirations 14, blood pressure 119/67, oxygen saturation 94% on 5 L nasal cannula Patient seen and examined resting comfortably in his chair, no acute distress Breath sounds mildly reduced bilaterally, equal Heart sounds soft, no murmurs appreciated REVIEW OF LABS, ECG Hemoglobin 8.8, WBC 14.4, potassium 4.0, BUN 15, creatinine 0.64 Telemetry shows sinus rhythm Objective - Vital Signs Vital signs: Vital Signs Temp 98.3 F 01/10/19 08:00 Pulse 81 01/10/19 12:00 Resp 14 01/10/19 12:00 BP 119/67 01/10/19 12:00 Pulse Ox 94 L 01/10/19 12:00 Intake & Output 01/09/19 01/10/19 01/10/19 18:59 06:59 18:59 Intake Total 520.896 674.71 324 Output Total 570 668 490 Balance -49.104 6.71 -166 Weight 99.2 kg 101.4 kg Intake: IV 376 672 324 0.9% NS Pressure bag 66 72 24 Lactated Ringers 1,000 ml 120 @ 20 mls/hr IV .Q24H [facility] Rx#:[id number] Sodium Chloride .9 @ 20ml 190 600 50 /hr Sodium Chloride .9 @ 50 250 ml/hr Intake, IV Titration 54.896 2.71 Amount Clevidipine Butyrate 25 24.233 mg In Empty Bag 1 bag @ 1 MG/HR 2 mls/hr IV .Q24H [facility] Rx#:[id number] Insulin Regular 100 unit 30.663 2.71 In Sodium Chloride 0.9% 100 ml @ Per Protocol IV .Q0M [facility] Rx#:[id number] Oral 90 Output: Chest Tube Drainage 230 310 120 Chest Tube Bilateral 0 Mediastinal Chest Tube Left Pleural/ 130 180 120 Mediastinal Chest Tube Right Pleural/ 100 130 0 Mediastinal Urine 340 358 370 Other: Voiding Method Indwelling Catheter Indwelling Catheter # Voids 1 ABP, PAP, CO, CI - Last Documented Arterial Blood Pressure 173/74 Pulmonary Artery Pressure 37/17 Cardiac Output 5.6 Cardiac Index 2.8 - Labs CBC & Chem 7: 01/10/19 05:20 01/10/19 05:20 Labs: Abnormal Lab Results - Last 24 Hours (Table) 01/09/19 01/09/19 01/09/19 Range/Units 15:01 16:02 16:59 WBC (3.8-10.6) k/uL RBC (4.30-5.90) m/uL Hgb (13.0-17.5) gm/dL Hct (39.0-53.0) % RDW (11.5-15.5) % Plt Count (150-450) k/uL Neutrophils # (1.3-7.7) k/uL Sodium (137-145) mmol/L Creatinine (0.66-1.25) mg/dL Glucose (74-99) mg/dL POC Glucose (mg/dL) 162 H 158 H 137 H (75-99) mg/dL Calcium (8.4-10.2) mg/dL AST (17-59) U/L Total Protein (6.3-8.2) g/dL Albumin (3.5-5.0) g/dL 01/09/19 01/09/19 01/09/19 Range/Units 18:22 19:08 21:09 WBC (3.8-10.6) k/uL RBC (4.30-5.90) m/uL Hgb (13.0-17.5) gm/dL Hct (39.0-53.0) % RDW (11.5-15.5) % Plt Count (150-450) k/uL Neutrophils # (1.3-7.7) k/uL Sodium (137-145) mmol/L Creatinine (0.66-1.25) mg/dL Glucose (74-99) mg/dL POC Glucose (mg/dL) 163 H 157 H 136 H (75-99) mg/dL Calcium (8.4-10.2) mg/dL AST (17-59) U/L Total Protein (6.3-8.2) g/dL Albumin (3.5-5.0) g/dL 01/09/19 01/10/19 01/10/19 Range/Units 22:30 05:20 05:20 WBC 14.4 H (3.8-10.6) k/uL RBC 2.80 L (4.30-5.90) m/uL Hgb 8.8 L (13.0-17.5) gm/dL Hct 24.7 L (39.0-53.0) % RDW 16.3 H (11.5-15.5) % Plt Count 87 L (150-450) k/uL Neutrophils # 11.5 H (1.3-7.7) k/uL Sodium 136 L (137-145) mmol/L Creatinine 0.64 L (0.66-1.25) mg/dL Glucose 129 H (74-99) mg/dL POC Glucose (mg/dL) 129 H (75-99) mg/dL Calcium 8.1 L (8.4-10.2) mg/dL AST 60 H (17-59) U/L Total Protein 5.5 L (6.3-8.2) g/dL Albumin 3.3 L (3.5-5.0) g/dL 01/10/19 Range/Units 12:27 WBC (3.8-10.6) k/uL RBC (4.30-5.90) m/uL Hgb (13.0-17.5) gm/dL Hct (39.0-53.0) % RDW (11.5-15.5) % Plt Count (150-450) k/uL Neutrophils # (1.3-7.7) k/uL Sodium (137-145) mmol/L Creatinine (0.66-1.25) mg/dL Glucose (74-99) mg/dL POC Glucose (mg/dL) 133 H (75-99) mg/dL Calcium (8.4-10.2) mg/dL AST (17-59) U/L Total Protein (6.3-8.2) g/dL Albumin (3.5-5.0) g/dL
[2019-01-10 17:12] LABS: Glucose,Whole Blood 130 mg/dL (75-99)
[2019-01-10] MEDS: SENNOSIDES-DOCUSATE SODIUM 1 EACH TAB PO SCH (21:15)
[2019-01-10] MEDS: BISACODYL 10 MG SUPP RECTAL PRN (21:16)
[2019-01-10 21:17] LABS: Glucose,Whole Blood 124 mg/dL (75-99)
--- NOTE | 2019-01-10 21:40 | P.PN ---
Progress Note - Text Progress Note Date: 01/10/19 - Chief Complaint Tired Interval history: This is a pleasant 63-year-old patient of Dr. painting from [place]. Patient underwent coronary bypass types 1 and also had aortic valve replacement with a bovine valve. Late in the evening patient is having significant blood loss and was taken back to the OR. Patient did require significant fluid resuscitation and blood products. That included 2 g of albumin, 8 units of packed red blood cell, fresh frozen plasma about 8 units, 3 units of platelet and cryoprecipitate tenderness. Today-both 2. We'll chest tubes were removed. Did tolerate her full liquid diet. Did pass some flatus. Some shortness of breath is present. In sinus rhythm. To sit up in a chair.. Review of systems: Was done for constitutional, cardiovascular, GI, pulmonary. relevant finding as above Current medications are reviewed that included: Insulin drip Physical examination: VITAL SIGNS: Afebrile, 88, 14, 1:30/80, 95% on nasal cannula GENERAL: Sitting in the edge of the bed, short of breath at rest. EYES: Pupils equal. Conjunctiva palel. HEENT: External appearance of nose and ears normal, oral cavity grossly normal. NECK: JVD unable to assess; masses not palpable. HEART: First and second heart sounds are normal; no edema. LUNGS: Respiratory rate increased, diminished breath sounds, basal crackles , mediastinal white tube in place ABDOMEN: Soft, nontender, liver spleen not palpable, no masses palpable. PSYCH: Alert and oriented x3; mood and affect anxious. Investigations, reviewed in the clinical context: White count 14.4 hemoglobin 8.8 platelets is 87 potassium 4 creatinine 0.64 Chest x-ray film personally reviewed by me shows some fluid overload Assessment: -Status post coronary bypass 1, aortic valve replacement with bovine valve -COPD in an ex-smoker -Essential hypertension -Obesity BMI 35.5 -Acute postop blood loss anemia expected from surgery -Dilutional thrombocytopenia -Hyperlipidemia Plan: Continue current medication treatment plan. Patient to use the respiratory spirometer. Patient did receive IV Lasix earlier. May need another dose. Improving slowly. Thank you Dr. Wallace
[2019-01-11] MEDS: HEPARIN SODIUM,PORCINE 5,000 UNIT/ML 1 ML VIAL SQ SCH ×3 (04:50→22:00)
[2019-01-11 05:10] LABS: Anisocytosis Slight; HCT 25.1 % (39.0-53.0); HGB 8.4 gm/dL (13.0-17.5); MCHC 33.4 g/dL (31.0-37.0); MCV 92.8 fL (80.0-100.0); Mean Platelet Volume 8.3; Platelet Count 107 k/uL (150-450); RDW 16.8 % (11.5-15.5)
[2019-01-11 05:19] LABS: African American GFR (CKD) >90 (>60 ml/min/1.73 sqM); Anion Gap 7 mmol/L; Blood Urea Nitrogen 15 mg/dL (9-20); Calcium 7.9 mg/dL (8.4-10.2); Carbon Dioxide 25 mmol/L (22-30); Chloride 102 mmol/L (98-107); Glucose 119 mg/dL (74-99); Potassium 3.8 mmol/L (3.5-5.1); Sodium 134 mmol/L (137-145)
[2019-01-11] MEDS: HYDROcodone/APAP 5-325MG 1 EACH TAB PO PRN ×2 (05:38→21:59)
[2019-01-11 07:01] LABS: Glucose,Whole Blood 124 mg/dL (75-99)
[2019-01-11] MEDS: INSULIN ASPART (NovoLOG) 100 UNIT/ML VIAL SQ SCH ×4 (07:07→22:11)
[2019-01-11] MEDS: THIAMINE 100 MG TAB PO SCH ×2 (07:15→18:08)
[2019-01-11] MEDS: PANTOPRAZOLE 40 MG TABLET PO SCH (07:15)
--- NOTE | 2019-01-11 07:41 | XR ---
EXAMINATION TYPE: XR chest 1V portable DATE OF EXAM: 01/11/2019 COMPARISON: 01/10/2019 HISTORY: Post cardiac surgery TECHNIQUE: Single frontal view of the chest is obtained. FINDINGS: Bilateral consolidation and pleural effusion stable. Cardiomegaly noted. Chronic rib cage deformities are seen. No sizable pneumothorax. Bilateral Chest tubes have been removed. Golf-Anmol ca theters been removed. There is a approximate 5% right apical pneumothorax and 5-10% left apical pneum othorax. IMPRESSION: 1. There is reduction in size of a of a less than 5% right apical and stable 5-10% left apical pneumo thorax. Chest tubes are removed 2. Diffuse pleural-parenchymal changes correlate for CHF otherwise consider pneumonia.
[2019-01-11] MEDS: IPRATROPIUM-ALBUTEROL 3 ML NEB INHALATION SCH ×4 (08:29→19:51)
[2019-01-11] MEDS ORDERED: FUROSEMIDE 10 MG/ML 2 ML VIAL IV STA (08:44)
--- NOTE | 2019-01-11 08:59 | P.PN ---
Subjective Progress Note Date: 01/11/19 Principal diagnosis: Aortic valve stenosis, coronary artery disease. Previous medical history of hypertension, COPD, previous tobacco dependence, daily EtOH use, recent pneumonia, skin cancer with removal in July 2018, obesity, and family history of coronary artery disease. POD #4 aortic valve replacement with 23 mm Avalus bovine pericardial valve, coronary artery bypass grafting 1 with the left internal mammary artery to the left anterior descending artery, ligation of the left atrial appendage with a 35 mm AtriCure clip, epi-aortic ultrasonography. Postoperative hemorrhage, acute blood loss anemia, unexpected Postoperative thrombocytopenia, expected POD #4 sternal exploration with repair of a hole in the right atrium The patient is currently sitting up in a recliner in the intensive care unit in no significant distress. States his pain is controlled on current medication regimen, denies shortness of breath. Remains in normal sinus rhythm. Hemodynamically stable on no inotropes or pressors. Right pleural chest tube was discontinued yesterday, left pleural chest tube remains. No new concerns. Objective - Vital Signs Vital signs: Vital Signs Temp 98.3 F 01/11/19 04:00 Pulse 85 01/11/19 08:40 Resp 19 01/11/19 07:00 BP 143/81 01/11/19 07:00 Pulse Ox 98 01/11/19 07:00 Intake & Output 01/10/19 01/11/19 01/11/19 18:59 06:59 18:59 Intake Total 1339 953 Output Total 490 80 Balance 849 873 Intake: IV 589 553 0.9% NS Pressure bag 39 3 Sodium Chloride .9 @ 20ml 50 /hr Sodium Chloride .9 @ 50 500 550 ml/hr Oral 750 400 Output: Chest Tube Drainage 120 80 Chest Tube Left Pleural/ 120 80 Mediastinal Chest Tube Right Pleural/ 0 Mediastinal Urine 370 Other: Voiding Method Indwelling Catheter Indwelling Catheter # Voids 3 2 # Bowel Movements 2 ABP, PAP, CO, CI - Last Documented Arterial Blood Pressure 173/74 Pulmonary Artery Pressure 37/17 Cardiac Output 5.6 Cardiac Index 2.8 - Constitutional General appearance: Present: cooperative, no acute distress, obese - Respiratory Details: Lungs sounds diminished bilaterally. Respirations even, nonlabored. Currently on 3 L nasal cannula with oxygen saturation 96%. Able to achieve 1000 mL on his incentive spirometry. Left pleural chest tube to continuous wall suction, 50 mL serosanguineous drainage overnight, 200 mL in the last 24 hours. No air leak present. - Cardiovascular Details: S1, S2 present. Sinus rhythm on telemetry. Sternum stable. Epicardial pacemaker wires present, grounded. Palpable peripheral pulses bilaterally. Bilateral upper extremity trace edema present, no lower extremity edema present. No calf pain or tenderness noted. Heart hugger in place with patient demonstrating appropriate, antiembolism stockings, SCDs present. - Gastrointestinal Gastrointestinal Comment(s): Abdomen soft, nontender, nondistended, round. Active bowel sounds present 4 quadrants. Tolerating diet. Positive bowel movement. - Genitourinary Genitourinary Comment(s): Francisco catheter discontinued yesterday, patient continues to void clear, yellow urine. - Integumentary Integumentary Comment(s): Skin is warm and dry with evidence of good perfusion. Anterior chest incision well approximated and covered with dry intact dressing. - Neurologic Neurologic: Present: CNII-XII intact - Musculoskeletal Musculoskeletal: Present: gait normal, strength equal bilaterally - Psychiatric Psychiatric: Present: A&O x's 3, appropriate affect, intact judgment & insight - Allied health notes Allied health notes reviewed: nursing - Labs CBC & Chem 7: 01/11/19 04:33 01/11/19 04:33 Labs: Abnormal Lab Results - Last 24 Hours (Table) 01/10/19 01/10/19 01/10/19 Range/Units 12:27 17:10 21:13 WBC (3.8-10.6) k/uL RBC (4.30-5.90) m/uL Hgb (13.0-17.5) gm/dL Hct (39.0-53.0) % RDW (11.5-15.5) % Plt Count (150-450) k/uL Sodium (137-145) mmol/L Creatinine (0.66-1.25) mg/dL Glucose (74-99) mg/dL POC Glucose (mg/dL) 133 H 130 H 124 H (75-99) mg/dL Calcium (8.4-10.2) mg/dL 01/11/19 01/11/19 01/11/19 Range/Units 04:33 04:33 06:47 WBC 11.0 H (3.8-10.6) k/uL RBC 2.70 L (4.30-5.90) m/uL Hgb 8.4 L (13.0-17.5) gm/dL Hct 25.1 L (39.0-53.0) % RDW 16.8 H (11.5-15.5) % Plt Count 107 L (150-450) k/uL Sodium 134 L (137-145) mmol/L Creatinine 0.61 L (0.66-1.25) mg/dL Glucose 119 H (74-99) mg/dL POC Glucose (mg/dL) 124 H (75-99) mg/dL Calcium 7.9 L (8.4-10.2) mg/dL - Imaging and Cardiology Chest x-ray: report reviewed, image reviewed Assessment and Plan Assessment: 1. Aortic valve stenosis, status post bioprosthetic aortic valve replacement 2. Coronary artery disease, status post single vessel CABG 3. History of hypertension 4. History of COPD 5. Previous tobacco dependence 6. Daily EtOH use 7. Recent pneumonia 8. Skin cancer with removal in July 2018 9. Family history of coronary artery disease 10. Postoperative hemorrhage, acute blood loss anemia, status post sternal exploration with repair of hole in the right atrium 11. Postoperative thrombocytopenia Plan: 1. Continue aspirin, statin, and adrianna therapy. Will increase beta adrianna therapy as tolerated. Will restart Plavix today. 2. Will increase Norvasc to 10 mg daily. 3. Wean O2 as tolerated. Encourage incentive spirometry use 10 times every hour while awake. 4. Increase activity, out of bed to chair. PT/OT/cardiac rehab following. 5. Bronchodilators per pulmonology. 6. Insulin management per primary care service. 7. Will monitor daily labs and x-rays. Electrolytes replacement per protocol. No further transfusions at this time. 8. GI/DVT prophylaxis. 9. [facility] protocol for alcohol withdrawal. 10. Pain control with current medication regimen. 11. Will discontinue left pleural chest tube. 12. Lasix 20 mg IV push ordered. 13. Transfer orders placed yesterday for 3 S. cardiac stepdown unit. May transfer when bed available. 14. Discharge planning in progress. Will consult Dr. Sanchez, per PT/OT recommendations for inpatient rehab. 15. More recommendations to follow based on patient's progress. Time with Patient: Greater than 30
[2019-01-11] MEDS: ASPIRIN 325 MG TAB PO SCH (09:16)
[2019-01-11] MEDS: CLOPIDOGREL 75 MG TAB PO SCH (09:16)
[2019-01-11] MEDS: ATORVASTATIN 40 MG TAB PO SCH (09:16)
[2019-01-11] MEDS: METOPROLOL TARTRATE 50 MG TAB PO SCH ×2 (09:16→22:00)
[2019-01-11] MEDS: FOLIC ACID 1 MG TAB PO SCH (09:16)
[2019-01-11] MEDS: SIMETHICONE 80 MG CHEWABLE PO SCH ×4 (09:16→22:00)
[2019-01-11] MEDS: MULTIVITAMINS, THERA 1 EACH TAB PO SCH (09:16)
[2019-01-11] MEDS: SODIUM CHLORIDE 0.9% 500 ML 500 ML IV SCH (09:19)
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
[2019-01-11 12:33] LABS: Glucose,Whole Blood 135 mg/dL (75-99)
--- NOTE | 2019-01-11 13:08 | P.CONS ---
History of Present Illness - Chief Complaint Cardiac debility - History of Present Illness I had the opportunity to see patient for inpatient rehab consultation with regard to cardiac debility. He was admitted to [facility] January 07 with severe aortic stenosis. Underwent AVR, CABG 1 vessel and amputation atrial appendage. Seen in consultation by Drs. Paredes, cardiology and Darrion. Chest x-rays followed and noted left apical pneumothorax, 5%. PT reports supervision for bed mobility and minimal assistance for transfers and gait 45 feet with roller walker. Balance poor. OT reports supervision for upper dressing mod assist for lower dressing. Minimal assistance for bathing, toileting and functional mobility. Previous functional history as elicited from patient: 54 showed right-handed white male who is engaging lives in a first-floor apartment with fiance. Patient works full-time. Describes independent with cooking, laundry, driving, standing shower and gait without device. Denies tobacco. 7-[address] Julien regular doctor. Family history of mother with cardiac disease in father with cancer. Review of Systems Review of systems: ENT: Denies sneezes or discharge. Eyes: Denies discharge or photophobia. Cardiac: Some sternal discomfort. Pulmonary: Mild to moderate shortness of breath. Gastrointestinal: Denies nausea, emesis, constipation, diarrhea. Genitourinary: Denies discharge or frequency. Musculoskeletal: Denies muscle or bone aches. Neurologic: Generalized weakness. Endocrine: Denies shakes or sweats. Oncology: Denies cancers. Dermatologic: Denies rash, itching, pruritus. ALLERGY/immunology: Denies sneezes, rashes. Past Medical History Past Medical History: Cancer, COPD, Hypertension, Pneumonia Additional Past Medical History / Comment(s): heart murmur,hx fx ribs,skin CA,pneumonia Aug 2018 History of Any Multi-Drug Resistant Organisms: None Reported Past Surgical History: Heart Catheterization, Hernia Repair, Orthopedic Surgery, Tonsillectomy Additional Past Surgical History / Comment(s): left leg surg to stretch achilles tendon,DONA Past Anesthesia/Blood Transfusion Reactions: No Reported Reaction Smoking Status: Former smoker - Past Family History Mother Family Medical History: Coronary Artery Disease (CAD), Dementia Father Family Medical History: Asthma, Cancer Medications and Allergies Home Medications Medication Instructions Recorded Confirmed Type Acetylcysteine [Nac] 500 mg PO DAILY 09/06/18 01/07/19 History Ascorbic Acid [Vitamin C] 500 mg PO DAILY 09/06/18 01/07/19 History Cholecalciferol [Vitamin D3 (25 1,000 unit PO DAILY 09/06/18 01/07/19 History Mcg = 1000 Iu)] Fluticasone/Umeclidin/Vilanter 1 puff INHALATION RT-DAILY 09/06/18 01/07/19 History [Trelegy Ellipta 100-62.5-25] Multivitamins, Thera [Multivitamin 1 tab PO DAILY 09/06/18 01/07/19 History (formulary)] Vitamin E 100 unit PO DAILY 09/06/18 01/07/19 History amLODIPine [Norvasc] 10 mg PO QAM 09/06/18 01/07/19 History Albuterol Inhaler [Ventolin Hfa 1 - 2 puff INHALATION RT-Q6H PRN 10/12/18 01/07/19 History Inhaler] Aspirin 81 mg PO DAILY 10/15/18 01/07/19 History Metoprolol Tartrate [Lopressor] 25 mg PO BID #60 tab 10/15/18 01/07/19 Rx Nitroglycerin Sl Tabs [Nitrostat] 0.4 mg SUBLINGUAL Q5M PRN #25 tab 10/15/18 01/07/19 Rx Naproxen Sodium [Aleve] 220 - 440 mg PO BID PRN 12/31/18 01/07/19 History Atorvastatin [Lipitor] 20 mg PO DAILY 01/07/19 01/07/19 History Allergies Allergy/AdvReac Type Severity Reaction Status Date / Time No Known Allergies Allergy Verified 01/07/19 13:14 Physical Exam Vitals: Vital Signs Temp Pulse Resp BP Pulse Ox 01/11/19 12:31 80 01/11/19 12:22 80 01/11/19 08:40 85 01/11/19 08:29 85 01/11/19 07:00 81 19 143/81 98 01/11/19 06:00 88 9 L 134/74 96 01/11/19 05:00 84 11 L 147/79 98 01/11/19 04:00 98.3 F 84 15 139/78 99 01/11/19 03:00 80 14 98 01/11/19 02:00 86 11 L 92 L 01/11/19 01:00 80 16 95 01/11/19 00:00 86 18 152/76 90 L 01/10/19 23:41 75 13 98 01/10/19 23:00 77 13 96 01/10/19 22:00 80 28 H 94 L 01/10/19 21:00 93 8 L 01/10/19 20:00 98.2 F 90 14 144/76 93 L 01/10/19 19:47 86 01/10/19 19:38 85 20 01/10/19 19:00 88 14 130/80 95 01/10/19 18:00 87 14 132/74 96 01/10/19 17:00 90 18 128/85 97 01/10/19 16:00 89 12 139/71 95 01/10/19 15:00 82 18 126/72 97 01/10/19 14:00 90 25 H 123/73 97 Intake and Output 01/10/19 01/11/19 01/11/19 22:59 06:59 14:59 Intake Total 1168 800 Output Total 30 50 685 Balance 1138 750 -685 Intake: IV 318 500 0.9% NS Pressure bag 18 Sodium Chloride .9 @ 50 300 500 ml/hr Oral 850 300 Output: Chest Tube Drainage 30 50 Chest Tube Left Pleural/ 30 50 Mediastinal Urine 75 Urine/Stool Mix 610 Other: Voiding Method Indwelling Catheter Indwelling Catheter # Voids 1 2 # Bowel Movements 2 Skin: Good color, texture, turgor. General: Overweight build and comfortable appearance. Head: Normocephalic, atraumatic. Eyes: Symmetric. Pupils equal round. Ears: Symmetric. Hearing within normal limits. Mouth: Clear. Neck: Supple. Carotid without bruit. Cardiac: Regular rate and rhythm. Clean and dressed. Wearing harness. Lungs: Clear anteriorly and posteriorly. Abdomen: Soft active nontender, overweight. Extremities: Normal tone. Neurological: Mental status: Alert, cooperative, pleasant. Cranial nerves: Symmetric facial tone and trapezius. Motor: Normal strength and isolation all 4 limbs. Sensation: Intact throughout. DTRs: Symmetric and equal throughout. Mobility: Requires physical assistance functional mobility. Results CBC & Chem 7: 01/11/19 04:33 01/11/19 04:33 Labs: Abnormal Lab Results - Last 24 Hours (Table) 01/10/19 01/10/19 01/11/19 Range/Units 17:10 21:13 04:33 WBC 11.0 H (3.8-10.6) k/uL RBC 2.70 L (4.30-5.90) m/uL Hgb 8.4 L (13.0-17.5) gm/dL Hct 25.1 L (39.0-53.0) % RDW 16.8 H (11.5-15.5) % Plt Count 107 L (150-450) k/uL Sodium (137-145) mmol/L Creatinine (0.66-1.25) mg/dL Glucose (74-99) mg/dL POC Glucose (mg/dL) 130 H 124 H (75-99) mg/dL Calcium (8.4-10.2) mg/dL 01/11/19 01/11/19 01/11/19 Range/Units 04:33 06:47 12:21 WBC (3.8-10.6) k/uL RBC (4.30-5.90) m/uL Hgb (13.0-17.5) gm/dL Hct (39.0-53.0) % RDW (11.5-15.5) % Plt Count (150-450) k/uL Sodium 134 L (137-145) mmol/L Creatinine 0.61 L (0.66-1.25) mg/dL Glucose 119 H (74-99) mg/dL POC Glucose (mg/dL) 124 H 135 H (75-99) mg/dL Calcium 7.9 L (8.4-10.2) mg/dL Assessment and Plan (1) Severe aortic stenosis Current Visit: No Status: Acute Code(s): I35.0 - NONRHEUMATIC AORTIC (VALVE) STENOSIS SNOMED Code(s): 15706681 Plan: Impression: 1. Cardiac debility. 2. Aortic stenosis status post AVR. 3. Coronary disease history of CABG single-vessel and amputation atrial appendage. 4. Hypertension. 5. COPD. 6. History of cancer. Comments and plan: At this time PT and OT and going pretty concerns noted. Discussed possible inpatient rehab and patient in fact offers that he requested a rehab consult.
[2019-01-11] MEDS: amLODIPine 10 MG TAB PO SCH (13:15)
--- NOTE | 2019-01-11 13:18 | P.PN ---
Subjective This is Tere Muller PA-C dictating a progress note on this patient The patient was interviewed and examined by me IMPRESSION / ASSESSMENT: Aortic stenosis status post aortic valve replacement Coronary artery disease status post CABG Hypertension Dyslipidemia COPD PLAN: given Lasix [address] surgery Amlodipine has been increased home dose of 10 mg daily Consider increasing metoprolol to 75 mg twice a day in the future if needed for blood pressure control Continue to monitor telemetry for AV block and arrhythmias Continue dual antiplatelet therapy and statins HPI/interval history Patient is a 63-year-old male with a past medical history of CAD and aortic stenosis who is postop day #4 from aortic valve replacement and coronary artery bypass grafting complicated by postoperative hemorrhage requiring repair of right atrium. States he has been feeling well. His post-operative pain continues to improve each day. Denies shortness of breath or palpitations. Sleeping comfortably, no orthopnea or PND. EXAMINATION Blood pressure has been elevated in the 130s to 140s systolic, pulse in the 80s, afebrile, respirations 19, oxygen saturation 98% on 3 L nasal cannula On exam he is sitting in his chair, appears comfortable, no acute distress Lungs with bilateral crackles at the bases Heart sounds are regular, positive S1, S2, no murmurs appreciated No lower extremity edema REVIEW OF LABS, ECG Initial EKG showed right bundle branch block with mild prolonged MA Rhythm sharps shows sinus rhythm right bundle branch pattern, MA in the upper normal limits, no arrhythmias noted WBC 11, hemoglobin 8.4, potassium 3.8, BUN 15, creatinine 0.61 Objective - Vital Signs Vital signs: Vital Signs Temp 98.3 F 01/11/19 04:00 Pulse 85 01/11/19 08:40 Resp 19 01/11/19 07:00 BP 143/81 01/11/19 07:00 Pulse Ox 98 01/11/19 07:00 Intake & Output 01/10/19 01/11/19 01/11/19 18:59 06:59 18:59 Intake Total 1339 953 Output Total 490 80 685 Balance 849 873 -685 Intake: IV 589 553 0.9% NS Pressure bag 39 3 Sodium Chloride .9 @ 20ml 50 /hr Sodium Chloride .9 @ 50 500 550 ml/hr Oral 750 400 Output: Chest Tube Drainage 120 80 Chest Tube Left Pleural/ 120 80 Mediastinal Chest Tube Right Pleural/ 0 Mediastinal Urine 370 75 Urine/Stool Mix 610 Other: Voiding Method Indwelling Catheter Indwelling Catheter # Voids 3 2 # Bowel Movements 2 ABP, PAP, CO, CI - Last Documented Arterial Blood Pressure 173/74 Pulmonary Artery Pressure 37/17 Cardiac Output 5.6 Cardiac Index 2.8 - Labs CBC & Chem 7: 01/11/19 04:33 01/11/19 04:33 Labs: Abnormal Lab Results - Last 24 Hours (Table) 01/10/19 01/10/19 01/10/19 Range/Units 12:27 17:10 21:13 WBC (3.8-10.6) k/uL RBC (4.30-5.90) m/uL Hgb (13.0-17.5) gm/dL Hct (39.0-53.0) % RDW (11.5-15.5) % Plt Count (150-450) k/uL Sodium (137-145) mmol/L Creatinine (0.66-1.25) mg/dL Glucose (74-99) mg/dL POC Glucose (mg/dL) 133 H 130 H 124 H (75-99) mg/dL Calcium (8.4-10.2) mg/dL 01/11/19 01/11/19 01/11/19 Range/Units 04:33 04:33 06:47 WBC 11.0 H (3.8-10.6) k/uL RBC 2.70 L (4.30-5.90) m/uL Hgb 8.4 L (13.0-17.5) gm/dL Hct 25.1 L (39.0-53.0) % RDW 16.8 H (11.5-15.5) % Plt Count 107 L (150-450) k/uL Sodium 134 L (137-145) mmol/L Creatinine 0.61 L (0.66-1.25) mg/dL Glucose 119 H (74-99) mg/dL POC Glucose (mg/dL) 124 H (75-99) mg/dL Calcium 7.9 L (8.4-10.2) mg/dL
[2019-01-11 17:06] LABS: Glucose,Whole Blood 117 mg/dL (75-99)
[2019-01-11 20:47] LABS: Glucose,Whole Blood 145 mg/dL (75-99)
[2019-01-11] MEDS: SENNOSIDES-DOCUSATE SODIUM 1 EACH TAB PO SCH (22:00)
[2019-01-11 22:12] LABS: Glucose,Whole Blood 143 mg/dL (75-99)
--- NOTE | 2019-01-11 22:51 | P.PN ---
Progress Note - Text Progress Note Date: 01/11/19 - Chief Complaint Tired Interval history: This is a pleasant 63-year-old patient of Dr. painting from [place]. Patient underwent coronary bypass types 1 and also had aortic valve replacement with a bovine valve. Late in the evening patient is having significant blood loss and was taken back to the OR. Patient did require significant fluid resuscitation and blood products. That included 2 g of albumin, 8 units of packed red blood cell, fresh frozen plasma about 8 units, 3 units of platelet and cryoprecipitate tenderness. Today-all chest tubes were removed. Did get 20 mg of IV Lasix this morning. Appetite is getting better. Did walk a bit. Breathing is better. Sitting up in a chair. Review of systems: Was done for constitutional, cardiovascular, GI, pulmonary. relevant finding as above Current medications are reviewed that included: Noted in the electronic chart from this admission from today Physical examination: VITAL SIGNS: 98.1, 81, 16, 146/68, 97% on 5 L GENERAL: Sitting up in a chair, less short of breath . EYES: Pupils equal. Conjunctiva palel. HEENT: External appearance of nose and ears normal, oral cavity grossly normal. NECK: JVD unable to assess; masses not palpable. HEART: First and second heart sounds are normal; no edema. LUNGS: Respiratory rate increased, diminished breath sounds, basal crackles , mediastinal white tube in place ABDOMEN: Soft, nontender, liver spleen not palpable, no masses palpable. PSYCH: Alert and oriented x3; mood and affect anxious. Investigations: White count 11 hemoglobin 8.4 platelets 107 potassium 3.8 creatinine 0.61 Assessment: -Status post coronary bypass 1, aortic valve replacement with bovine valve -COPD in an ex-smoker -Essential hypertension -Obesity BMI 35.5 -Acute postop blood loss anemia expected from surgery -Dilutional thrombocytopenia -Hyperlipidemia -Acute fluid overload, from IV fluids -Acute hypoxic respiratory failure from fluid overload on 5 L of oxygen Plan: Patient is slowly improving. Probably need some more Lasix. Dr. Oscar was consulted for inpatient rehab. Care was discussed with the patient. Encouraged tablet. Thank you Dr. Wallace
[2019-01-12 05:35] LABS: HCT 25.8 % (39.0-53.0); HGB 8.4 gm/dL (13.0-17.5); MCHC 32.4 g/dL (31.0-37.0); MCV 92.6 fL (80.0-100.0); Mean Platelet Volume 7.6; Platelet Count 134 k/uL (150-450); RBC 2.78 m/uL (4.30-5.90); RDW 15.7 % (11.5-15.5); WBC 8.3 k/uL (3.8-10.6)
[2019-01-12 05:46] LABS: African American GFR (CKD) >90 (>60 ml/min/1.73 sqM); Anion Gap 8 mmol/L; Blood Urea Nitrogen 12 mg/dL (9-20); Calcium 7.8 mg/dL (8.4-10.2); Carbon Dioxide 26 mmol/L (22-30); Chloride 103 mmol/L (98-107); Glucose 116 mg/dL (74-99); Potassium 3.7 mmol/L (3.5-5.1); Sodium 137 mmol/L (137-145)
[2019-01-12] MEDS: HEPARIN SODIUM,PORCINE 5,000 UNIT/ML 1 ML VIAL SQ SCH ×3 (05:53→20:51)
[2019-01-12 07:02] LABS: Glucose,Whole Blood 121 mg/dL (75-99)
[2019-01-12] MEDS: INSULIN ASPART (NovoLOG) 100 UNIT/ML VIAL SQ SCH ×4 (07:05→20:55)
[2019-01-12] MEDS: THIAMINE 100 MG TAB PO SCH ×2 (07:06→17:57)
[2019-01-12] MEDS: PANTOPRAZOLE 40 MG TABLET PO SCH (07:06)
[2019-01-12] MEDS: IPRATROPIUM-ALBUTEROL 3 ML NEB INHALATION SCH ×4 (07:18→20:57)
--- NOTE | 2019-01-12 07:22 | XR ---
EXAMINATION TYPE: XR chest 2V DATE OF EXAM: 01/12/2019 COMPARISON: Chest x-ray from yesterday. HISTORY: Post open cardiac surgery. TECHNIQUE: Frontal and lateral views of the chest are obtained. FINDINGS: There is persistent cardiomegaly. There is persistent small bilateral pleural effusions. T here is interval removal of left sided chest tube. There is stable small left apical pneumothorax. Ca rdiac closure device left superior heart redemonstrated. No new focal airspace opacity. Tiny right ap ical pneumothorax on prior study not well seen on today's study. The osseous structures are intact. IMPRESSION: Stable small left apical pneumothorax despite interval chest tube removal. Persistent ca rdiomegaly with small bilateral pleural effusions and associated left basilar atelectasis and/or infi ltrate.
--- NOTE | 2019-01-12 07:39 | P.PN ---
Subjective Progress Note Date: 01/12/19 Principal diagnosis: Aortic valve stenosis, coronary artery disease. Previous medical history of hypertension, COPD, previous tobacco dependence, daily EtOH use, recent pneumonia, skin cancer with removal in July 2018, obesity, and family history of coronary artery disease. POD #5 aortic valve replacement with 23 mm Avalus bovine pericardial valve, coronary artery bypass grafting 1 with the left internal mammary artery to the left anterior descending artery, ligation of the left atrial appendage with a 35 mm AtriCure clip, epi-aortic ultrasonography. Postoperative hemorrhage, acute blood loss anemia, unexpected Postoperative thrombocytopenia, expected POD #5 sternal exploration with repair of a hole in the right atrium The patient is currently sitting up in a recliner in the intensive care unit in no significant distress. States his pain is controlled on current medication regimen, denies shortness of breath. Remains in normal sinus rhythm. Hemodynamically stable on no inotropes or pressors. Left pleural chest tube was discontinued yesterday. No new concerns. Transfer orders were placed for 3 S. cardiac stepdown but there is no bed availability. Objective - Vital Signs Vital signs: Vital Signs Temp 98.3 F 01/12/19 04:00 Pulse 85 01/12/19 06:00 Resp 13 01/12/19 06:00 BP 128/78 01/12/19 06:00 Pulse Ox 90 L 01/12/19 04:00 Intake & Output 01/11/19 01/12/19 01/12/19 18:59 06:59 18:59 Output Total 685 900 Balance -685 -900 Output: Urine 75 900 Urine/Stool Mix 610 Other: Voiding Method Indwelling Catheter Bedside Commode Urinal ABP, PAP, CO, CI - Last Documented Arterial Blood Pressure 173/74 Pulmonary Artery Pressure 37/17 Cardiac Output 5.6 Cardiac Index 2.8 - Constitutional General appearance: Present: cooperative, no acute distress, obese - Respiratory Details: Lungs sounds diminished bilaterally. Respirations even, nonlabored. Currently on 3 L nasal cannula with oxygen saturation 96%. Able to achieve 750-1000 mL on his incentive spirometry. Strong cough. - Cardiovascular Details: S1, S2 present. Sinus rhythm on telemetry. Sternum stable. Epicardial pacemaker wires present, grounded. Palpable peripheral pulses bilaterally. No edema present. No calf pain or tenderness noted. Heart hugger in place with patient demonstrating appropriate, antiembolism stockings, SCDs present. - Gastrointestinal Gastrointestinal Comment(s): Abdomen soft, nontender, nondistended, round. Active bowel sounds present 4 quadrants. Tolerating diet. Positive bowel movement. - Genitourinary Genitourinary Comment(s): Continues to void - Integumentary Integumentary Comment(s): Skin is warm and dry with evidence of good perfusion. Anterior chest incision well approximated and covered with dry intact dressing. - Neurologic Neurologic: Present: CNII-XII intact - Musculoskeletal Musculoskeletal: Present: gait normal, strength equal bilaterally - Psychiatric Psychiatric: Present: A&O x's 3, appropriate affect, intact judgment & insight - Allied health notes Allied health notes reviewed: nursing - Labs CBC & Chem 7: 01/12/19 04:45 01/12/19 04:45 Labs: Abnormal Lab Results - Last 24 Hours (Table) 01/11/19 01/11/19 01/11/19 Range/Units 12:21 16:53 20:43 RBC (4.30-5.90) m/uL Hgb (13.0-17.5) gm/dL Hct (39.0-53.0) % RDW (11.5-15.5) % Plt Count (150-450) k/uL Creatinine (0.66-1.25) mg/dL Glucose (74-99) mg/dL POC Glucose (mg/dL) 135 H 117 H 145 H (75-99) mg/dL Calcium (8.4-10.2) mg/dL 01/11/19 01/12/19 01/12/19 Range/Units 22:10 04:45 04:45 RBC 2.78 L (4.30-5.90) m/uL Hgb 8.4 L (13.0-17.5) gm/dL Hct 25.8 L (39.0-53.0) % RDW 15.7 H (11.5-15.5) % Plt Count 134 L (150-450) k/uL Creatinine 0.58 L (0.66-1.25) mg/dL Glucose 116 H (74-99) mg/dL POC Glucose (mg/dL) 143 H (75-99) mg/dL Calcium 7.8 L (8.4-10.2) mg/dL 01/12/19 Range/Units 07:00 RBC (4.30-5.90) m/uL Hgb (13.0-17.5) gm/dL Hct (39.0-53.0) % RDW (11.5-15.5) % Plt Count (150-450) k/uL Creatinine (0.66-1.25) mg/dL Glucose (74-99) mg/dL POC Glucose (mg/dL) 121 H (75-99) mg/dL Calcium (8.4-10.2) mg/dL - Imaging and Cardiology Chest x-ray: report reviewed, image reviewed Assessment and Plan Assessment: 1. Aortic valve stenosis, status post bioprosthetic aortic valve replacement 2. Coronary artery disease, status post single vessel CABG 3. History of hypertension 4. History of COPD 5. Previous tobacco dependence 6. Daily EtOH use 7. Recent pneumonia 8. Skin cancer with removal in July 2018 9. Family history of coronary artery disease 10. Postoperative hemorrhage, acute blood loss anemia, status post sternal exploration with repair of hole in the right atrium 11. Postoperative thrombocytopenia Plan: 1. Continue aspirin, statin, Plavix, and adrianna therapy. Will increase beta adrianna therapy as tolerated. 2. Continue Norvasc to 10 mg daily. 3. Wean O2 as tolerated. Encourage incentive spirometry use 10 times every hour while awake. 4. Increase activity, out of bed to chair. PT/OT/cardiac rehab following. 5. Bronchodilators per pulmonology. 6. Insulin management per primary care service. 7. Will monitor daily labs and x-rays. Electrolytes replacement per protocol. No further transfusions at this time. 8. GI/DVT prophylaxis. 9. [facility] protocol for alcohol withdrawal. 10. Pain control with current medication regimen. 11. Will discontinue epicardial pacemaker wires. 12. Lasix 40 mg IV push ordered. 13. Transfer orders placed for 3 S. cardiac stepdown unit. May transfer when bed available. 14. Discharge planning in progress. Dr. Sanchez consulted for inpatient rehab, appreciate recommendations. 15. More recommendations to follow based on patient's progress. Time with Patient: Greater than 30
[2019-01-12] MEDS ORDERED: FUROSEMIDE 10 MG/ML 4 ML VIAL IV STA (07:40)
[2019-01-12] MEDS ORDERED: ACETAMINOPHEN TAB 500 MG TAB PO PRN (07:40)
[2019-01-12] MEDS ORDERED: HYDROcodone/APAP 5-325MG 1 EACH TAB PO PRN (07:41)
[2019-01-12] MEDS: CLOPIDOGREL 75 MG TAB PO SCH (08:58)
[2019-01-12] MEDS: FOLIC ACID 1 MG TAB PO SCH (08:58)
[2019-01-12] MEDS: MULTIVITAMINS, THERA 1 EACH TAB PO SCH (08:58)
[2019-01-12] MEDS: ASPIRIN 325 MG TAB PO SCH (08:58)
[2019-01-12] MEDS: ATORVASTATIN 40 MG TAB PO SCH (08:58)
[2019-01-12] MEDS: SIMETHICONE 80 MG CHEWABLE PO SCH ×4 (08:58→23:45)
[2019-01-12] MEDS: METOPROLOL TARTRATE 50 MG TAB PO SCH ×2 (09:00→20:51)
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
[2019-01-12 12:17] LABS: Glucose,Whole Blood 125 mg/dL (75-99)
[2019-01-12] MEDS: amLODIPine 10 MG TAB PO SCH (12:59)
[2019-01-12 16:41] LABS: Glucose,Whole Blood 149 mg/dL (75-99)
[2019-01-12 20:24] LABS: Glucose,Whole Blood 146 mg/dL (75-99)
--- NOTE | 2019-01-12 20:35 | P.PN ---
Progress Note - Text Progress Note Date: 01/12/19 - Chief Complaint Tired Interval history: This is a pleasant 63-year-old patient of Dr. painting from [place]. Patient underwent coronary bypass types 1 and also had aortic valve replacement with a bovine valve. Late in the evening patient is having significant blood loss and was taken back to the OR. Patient did require significant fluid resuscitation and blood products. That included 2 g of albumin, 8 units of packed red blood cell, fresh frozen plasma about 8 units, 3 units of platelet and cryoprecipitate tenderness. Today-continues to feel better. Did receive 40 mg IV Lasix today. Did diurese well. Breathing much improved. Had a bowel movement. Did walk in the hallway.. Review of systems: Was done for constitutional, cardiovascular, GI, pulmonary. relevant finding as above Current medications are reviewed that included: Noted in the electronic chart from this admission from today Physical examination: VITAL SIGNS: 98.6, 91, 14, 152/66, 92% room air GENERAL: Sitting up in a chair, breathing better . EYES: Pupils equal. Conjunctiva palel. HEENT: External appearance of nose and ears normal, oral cavity grossly normal. NECK: JVD unable to assess; masses not palpable. HEART: First and second heart sounds are normal; no edema. LUNGS: Respiratory rate increased, diminished breath sounds, improve crackles , ABDOMEN: Soft, nontender, liver spleen not palpable, no masses palpable. PSYCH: Alert and oriented x3; mood and affect anxious. Investigations: White count 8.3, hemoglobin 8.4, creatinine 0.58 Assessment: -Status post coronary bypass 1, aortic valve replacement with bovine valve -COPD in an ex-smoker -Essential hypertension -Obesity BMI 35.5 -Acute postop blood loss anemia expected from surgery -Dilutional thrombocytopenia -Hyperlipidemia -Acute fluid overload, from IV fluids, improved with Lasix -Acute hypoxic respiratory failure from fluid overload oxygen supplementation, much improved Plan: Patient doing better. Breathing is better. Responded well to Lasix. Continue other medications Thank you Dr. Wallace
[2019-01-12] MEDS: SENNOSIDES-DOCUSATE SODIUM 1 EACH TAB PO SCH (20:52)
[2019-01-13 01:33] LABS: Glucose,Whole Blood 138 mg/dL (75-99)
[2019-01-13] MEDS: HEPARIN SODIUM,PORCINE 5,000 UNIT/ML 1 ML VIAL SQ SCH (04:35)
[2019-01-13 05:43] LABS: Glucose,Whole Blood 126 mg/dL (75-99)
[2019-01-13] MEDS: INSULIN ASPART (NovoLOG) 100 UNIT/ML VIAL SQ SCH (05:49)
[2019-01-13 06:36] LABS: HCT 26.5 % (39.0-53.0); HGB 8.8 gm/dL (13.0-17.5); MCH 30.6 pg (25.0-35.0); MCHC 33.1 g/dL (31.0-37.0); MCV 92.3 fL (80.0-100.0); Mean Platelet Volume 7.3; Platelet Count 178 k/uL (150-450); RBC 2.88 m/uL (4.30-5.90); RDW 15.8 % (11.5-15.5); WBC 9.1 k/uL (3.8-10.6)
[2019-01-13] MEDS: THIAMINE 100 MG TAB PO SCH (06:45)
[2019-01-13] MEDS: PANTOPRAZOLE 40 MG TABLET PO SCH (06:45)
[2019-01-13 07:04] LABS: African American GFR (CKD) >90 (>60 ml/min/1.73 sqM); Anion Gap 7 mmol/L; Blood Urea Nitrogen 11 mg/dL (9-20); Calcium 8.3 mg/dL (8.4-10.2); Carbon Dioxide 29 mmol/L (22-30); Chloride 102 mmol/L (98-107); Glucose 121 mg/dL (74-99); Magnesium 2.2 mg/dL (1.6-2.3); Potassium 3.5 mmol/L (3.5-5.1); Sodium 138 mmol/L (137-145)
--- NOTE | 2019-01-13 07:27 | XR ---
EXAMINATION TYPE: XR chest 2V DATE OF EXAM: 01/13/2019 COMPARISON: 01/12/2019 INDICATION: Postop heart surgery TECHNIQUE: Frontal and lateral views of the chest are obtained. FINDINGS: The heart size is enlarged. The pulmonary vasculature is normal. A small left apical pneumothorax remains present.. Small left pleural effusion is present. Minimal right pleural effusion is stable. IMPRESSION: 1. Small bilateral pleural effusions. 2. Stable small left apical pneumothorax. 3. Cardiomegaly
[2019-01-13 07:43] VITALS: BP 161/71; PULSE 95; RESP 16; TEMP 97.6
[2019-01-13] MEDS ORDERED: FUROSEMIDE 10 MG/ML 4 ML VIAL IV STA (07:43)
[2019-01-13] MEDS ORDERED: POTASSIUM CHLORIDE ER 20 MEQ TAB.ER PO STA (07:44)
--- NOTE | 2019-01-13 08:14 | P.PN ---
Subjective Progress Note Date: 01/13/19 Principal diagnosis: Aortic valve stenosis, coronary artery disease. Previous medical history of hypertension, COPD, previous tobacco dependence, daily EtOH use, recent pneumonia, skin cancer with removal in July 2018, obesity, and family history of coronary artery disease. POD #6 aortic valve replacement with 23 mm Avalus bovine pericardial valve, coronary artery bypass grafting 1 with the left internal mammary artery to the left anterior descending artery, ligation of the left atrial appendage with a 35 mm AtriCure clip, epi-aortic ultrasonography. Postoperative hemorrhage, acute blood loss anemia, unexpected Postoperative thrombocytopenia, expected POD #6 sternal exploration with repair of a hole in the right atrium The patient is currently sitting up in a recliner on the cardiac stepdown unit in no significant distress. States his pain is controlled on current medication regimen, denies shortness of breath. Remains in normal sinus rhythm, hemodynamically stable. No new concerns. Patient is anxious to go home. Objective - Vital Signs Vital signs: Vital Signs Temp 97.6 F 01/13/19 07:38 Pulse 95 01/13/19 07:38 Resp 16 01/13/19 07:38 BP 161/71 01/13/19 07:38 Pulse Ox 93 L 01/13/19 07:38 Intake & Output 01/12/19 01/13/19 01/13/19 18:59 06:59 18:59 Intake Total 80 Balance 80 Weight 96.5 kg Intake: Oral 80 Other: Voiding Method Bedside Commode Bedside Commode Bedside Commode Urinal Urinal Urinal ABP, PAP, CO, CI - Last Documented Arterial Blood Pressure 173/74 Pulmonary Artery Pressure 37/17 Cardiac Output 5.6 Cardiac Index 2.8 - Constitutional General appearance: Present: cooperative, no acute distress, obese - Respiratory Details: Lungs sounds diminished bilaterally. Respirations even, nonlabored. Currently on room air with oxygen saturation 93%. Able to achieve 1000 mL on his incentive spirometry. Strong cough. - Cardiovascular Details: S1, S2 present. Sinus rhythm on telemetry. Sternum stable. Epicardial pacemaker wires present, grounded. Palpable peripheral pulses bilaterally. No edema present. No calf pain or tenderness noted. Heart hugger in place with patient demonstrating appropriate, antiembolism stockings, SCDs present. - Gastrointestinal Gastrointestinal Comment(s): Abdomen soft, nontender, nondistended, round. Active bowel sounds present 4 quadrants. Tolerating diet. Positive bowel movement. - Genitourinary Genitourinary Comment(s): Continues to void - Integumentary Integumentary Comment(s): Skin is warm and dry with evidence of good perfusion. Anterior chest incision well approximated and covered with dry intact dressing. - Neurologic Neurologic: Present: CNII-XII intact - Musculoskeletal Musculoskeletal: Present: gait normal, strength equal bilaterally - Psychiatric Psychiatric: Present: A&O x's 3, appropriate affect, intact judgment & insight - Allied health notes Allied health notes reviewed: nursing - Labs CBC & Chem 7: 01/13/19 05:40 01/13/19 05:40 Labs: Abnormal Lab Results - Last 24 Hours (Table) 01/12/19 01/12/19 01/12/19 Range/Units 12:14 16:40 20:23 RBC (4.30-5.90) m/uL Hgb (13.0-17.5) gm/dL Hct (39.0-53.0) % RDW (11.5-15.5) % Glucose (74-99) mg/dL POC Glucose (mg/dL) 125 H 149 H 146 H (75-99) mg/dL Calcium (8.4-10.2) mg/dL 01/13/19 01/13/19 01/13/19 Range/Units 01:33 05:40 05:40 RBC 2.88 L (4.30-5.90) m/uL Hgb 8.8 L (13.0-17.5) gm/dL Hct 26.5 L (39.0-53.0) % RDW 15.8 H (11.5-15.5) % Glucose 121 H (74-99) mg/dL POC Glucose (mg/dL) 138 H (75-99) mg/dL Calcium 8.3 L (8.4-10.2) mg/dL 01/13/19 Range/Units 05:42 RBC (4.30-5.90) m/uL Hgb (13.0-17.5) gm/dL Hct (39.0-53.0) % RDW (11.5-15.5) % Glucose (74-99) mg/dL POC Glucose (mg/dL) 126 H (75-99) mg/dL Calcium (8.4-10.2) mg/dL - Imaging and Cardiology Chest x-ray: report reviewed, image reviewed Assessment and Plan Assessment: 1. Aortic valve stenosis, status post bioprosthetic aortic valve replacement 2. Coronary artery disease, status post single vessel CABG 3. History of hypertension 4. History of COPD 5. Previous tobacco dependence 6. Daily EtOH use 7. Recent pneumonia 8. Skin cancer with removal in July 2018 9. Family history of coronary artery disease 10. Postoperative hemorrhage, acute blood loss anemia, status post sternal exploration with repair of hole in the right atrium 11. Postoperative thrombocytopenia Plan: 1. Continue aspirin, statin, Plavix, and adrianna therapy. 2. Continue Norvasc 10 mg daily. 3. Encourage incentive spirometry use 10 times every hour while awake. 4. Increase activity, ambulate in hallway. PT/OT/cardiac rehab following. 5. Bronchodilators per pulmonology. 6. Insulin management per primary care service. 7. Will monitor daily labs and x-rays. Electrolytes replacement per protocol. No further transfusions at this time. 8. GI/DVT prophylaxis. 9. [facility] protocol for alcohol withdrawal. 10. Pain control with current medication regimen. 11. Will discontinue epicardial pacemaker wires. 12. Lasix 40 mg IV push ordered. 13. Discharge planning in progress. Dr. Sanchez consulted for inpatient rehab, patient is doing better and would prefer to go home. Plan is for discharge to home with home care this afternoon. 14. More recommendations to follow based on patient's progress. Time with Patient: Greater than 30
[2019-01-13] MEDS: SIMETHICONE 80 MG CHEWABLE PO SCH (08:27)
[2019-01-13] MEDS: METOPROLOL TARTRATE 50 MG TAB PO SCH (08:27)
[2019-01-13] MEDS: ATORVASTATIN 40 MG TAB PO SCH (08:27)
[2019-01-13] MEDS: FOLIC ACID 1 MG TAB PO SCH (08:27)
[2019-01-13] MEDS: ASPIRIN 325 MG TAB PO SCH (08:27)
[2019-01-13] MEDS: CLOPIDOGREL 75 MG TAB PO SCH (08:27)
[2019-01-13] MEDS: MULTIVITAMINS, THERA 1 EACH TAB PO SCH (08:27)
[2019-01-13] MEDS: IPRATROPIUM-ALBUTEROL 3 ML NEB INHALATION SCH ×2 (09:50→10:57)
--- NOTE | 2019-01-13 10:17 | P.DS ---
Providers Date of admission: 01/07/19 05:33 Expected date of discharge: 01/13/19 Attending physician: Eben Wallace Consults: 01/07/19 13:02 Consult Physician Routine Consulting Provider: Mirela Esteves Consult Reason/Comments: Public Health Dietitian Consult: post cardiac surgery Do you want consulting provider notified?: Yes Consult Physician Routine Consulting Provider: Divya Bradford Consult Reason/Comments: Clinical Evaluator Consult: post cardiac surgery Do you want consulting provider notified?: Yes Consult Physician Routine Consulting Provider: Julio Maier Consult Reason/Comments: Medical Management Do you want consulting provider notified?: Yes 01/11/19 08:59 Consult Physician Routine Consulting Provider: Jamey Sanchez Consult Reason/Comments: Inpatient rehab Do you want consulting provider notified?: Yes Primary care physician: Mina Julien [facility] Course: FINAL DIAGNOSIS: 1. Aortic valve stenosis 2. Coronary artery disease 3. History of hypertension 4. COPD with preoperative FEV1 84% of predicted 5. Previous tobacco dependence 6. Daily EtOH use 7. Recent pneumonia 8. Skin cancer with removal in July 2018 9. Obesity 10. Family history of coronary artery disease 11. Postoperative hemorrhage, acute blood loss anemia 12. Postoperative thrombocytopenia PRINCIPAL PROCEDURE: 1. Aortic valve replacement with 23 mm Avalus bovine pericardial valve 2. Coronary artery bypass grafting 1 with the left internal mammary artery to the left anterior descending artery 3. Ligation of the left atrial appendage using a 35 mm AtriCure clip 4. Epi-aortic ultrasonography 5. Return to the OR for sternal exploration with repair of hole in the right atrium HISTORY OF PRESENT ILLNESS: This is a 63-year-old gentleman who follows with Dr. Julien on an outpatient basis. He had a transthoracic echocardiogram in June 2018 per his primary care physician after auscultation of a murmur which demonstrated preserved left ventricular function with severe aortic stenosis. He was scheduled to follow up with cardiology. During a recent hospitalization in August 2018 for influenza A pneumonitis with some element of myocarditis the patient was found to have a troponin leak. A transthoracic echocardiogram was completed which demonstrated normal left ventricular systolic function with an ejection fraction of 55-60%. Once recovered, he was discharged to home to follow-up with Dr. Esteves from [facility]. He was scheduled to undergo heart catheterization and transesophageal echocardiogram in October 2018. Cardiac catheterization revealed critical lesion in the mid left anterior descending coronary artery. Transesophageal echocardiogram demonstrated severe aortic stenosis with a peak/mean gradient 62 mmHg/38 mmHg with a valve area 0.6 -0.8 cm by planimetry. Consultation was placed to Dr. Wallace from cardiothoracic surgery. He was recommended to undergo workup and evaluation for transcatheter aortic valve replacement with PCI to the left anterior descending coronary artery. The patient was discharged to home on maximal medical therapy. He was seen in the TAVR clinic at [facility] on November 12 and was found to be low risk but was offered to have TAVR through admission to the low risk trial. He wished to think about it and upon making up his mind, he decided he wanted to have surgical aortic valve replacement at [facility]. He followed up in the office with Dr. Wallace at the end of December 2018 with his decision for surgical aortic valve replacement along with coronary bypass of the left anterior descending coronary artery. The usual perioperative course was discussed in detail with the patient and his family, all risks and benefits were explained, all questions were answered, and consent was obtained to proceed with surgery. Surgery was scheduled at the earliest available time. HOSPITAL COURSE: The patient was brought to the hospital on 01/07/2019 , taken to the preoperative area, prepared in the usual fashion, and subsequently taken to the operating room where Dr. Wallace performed aortic valve replacement with 23 mm Avalus bovine pericardial valve, coronary artery bypass grafting 1 with the left internal mammary artery to the left anterior descending artery, ligation of the left atrial appendage using a 35 mm AtriCure clip, and epi-aortic u ltrasonography. Upon completion of surgery the patient was transferred to the cardiovascular intensive care unit where he was recovered, monitored hemodynamically, and where he progressed to cardiac rehabilitation phase 1. The night of surgery he had significant bleeding into his chest tubes, he received multiple blood products, and he was returned to the OR for sternal exploration where Dr. Wallace repaired of hole in the right atrium. He was transferred back to the intensive care unit and was able to be extubated the following morning. All lines, tubes, and drips were discontinued when ap propriate, he continued to have uneventful subsequent recovery, and he was transferred to [facility] cardiac stepdown unit for further monitoring and rehabilitation. His oxygen was titrated down, he continued to work with physical and occupational therapy, he was tolerating oral diet, his pain was controlled, and he was ready to be discharged to home with [facility] care on postoperative day #6. He received written and verbal instruction regarding his medications, activity restrictions, signs and symptoms requiring physician notification, and follow-up appointments. COMPLICATIONS: The patient experienced postoperative acute blood loss anemia and thrombocytopenia as a result of hemorrhage, he received multiple blood products, and he did return to the OR for sternal exploration with repair of the hole in the right atrium. Patient Condition at Discharge: Stable Plan - Discharge Summary Discharge Rx Participant: Yes New Discharge Prescriptions: New Aspirin 325 mg PO DAILY #30 tab Potassium Chloride ER [K-Dur 20] 20 meq PO DAILY 5 Days #5 tab.er.prt Furosemide [Lasix] 40 mg PO DAILY 5 Days #5 tab Atorvastatin [Lipitor] 40 mg PO DAILY #30 tab Metoprolol Tartrate [Lopressor] 50 mg PO BID #60 tab Clopidogrel [Plavix] 75 mg PO DAILY #30 tab Pantoprazole [Protonix] 40 mg PO AC-BRKFST #30 tablet.dr Glass-Docusate Sodium [Senokot-S] 2 each PO HS PRN tab PRN Reason: Constipation Acetaminophen Tab [Tylenol] 1,000 mg PO Q6HR PRN #120 tab PRN Reason: Fever And/ Or Pain Continue Multivitamins, Thera [Multivitamin (formulary)] 1 tab PO DAILY Vitamin E 100 unit PO DAILY Cholecalciferol [Vitamin D3 (25 Mcg = 1000 Iu)] 1,000 unit PO DAILY Ascorbic Acid [Vitamin C] 500 mg PO DAILY Fluticasone/Umeclidin/Vilanter [Trelegy Ellipta 100-62.5-25] 1 puff INHALATION RT-DAILY Albuterol Inhaler [Ventolin Hfa Inhaler] 1 - 2 puff INHALATION RT-Q6H PRN PRN Reason: Dyspnea amLODIPine [Norvasc] 10 mg PO QAM #30 tab Discontinued Acetylcysteine [Nac] 500 mg PO DAILY Aspirin 81 mg PO DAILY Metoprolol Tartrate [Lopressor] 25 mg PO BID #60 tab Nitroglycerin Sl Tabs [Nitrostat] 0.4 mg SUBLINGUAL Q5M PRN #25 tab PRN Reason: Chest Pain Naproxen Sodium [Aleve] 220 - 440 mg PO BID PRN PRN Reason: Pain Atorvastatin [Lipitor] 20 mg PO DAILY Discharge Medication List Ascorbic Acid [Vitamin C] 500 mg PO DAILY 09/06/18 [History] Cholecalciferol [Vitamin D3 (25 Mcg = 1000 Iu)] 1,000 unit PO DAILY 09/06/18 [History] Fluticasone/Umeclidin/Vilanter [Trelegy Ellipta 100-62.5-25] 1 puff INHALATION RT-DAILY 09/06/18 [History] Multivitamins, Thera [Multivitamin (formulary)] 1 tab PO DAILY 09/06/18 [History] Vitamin E 100 unit PO DAILY 09/06/18 [History] Albuterol Inhaler [Ventolin Hfa Inhaler] 1 - 2 puff INHALATION RT-Q6H PRN [History] Acetaminophen Tab [Tylenol] 1,000 mg PO Q6HR PRN #120 tab 01/13/19 [Rx] Aspirin 325 mg PO DAILY #30 tab 01/13/19 [Rx] Atorvastatin [Lipitor] 40 mg PO DAILY #30 tab 01/13/19 [Rx] Clopidogrel [Plavix] 75 mg PO DAILY #30 tab 01/13/19 [Rx] Furosemide [Lasix] 40 mg PO DAILY 5 Days #5 tab 01/13/19 [Rx] Metoprolol Tartrate [Lopressor] 50 mg PO BID #60 tab 01/13/19 [Rx] Pantoprazole [Protonix] 40 mg PO AC-BRKFST #30 tablet.dr 01/13/19 [Rx] Potassium Chloride ER [K-Dur 20] 20 meq PO DAILY 5 Days #5 tab.er.prt 01/13/19 [Rx] Sennosides-Docusate Sodium [Senokot-S] 2 each PO HS PRN tab 01/13/19 [Rx] amLODIPine [Norvasc] 10 mg PO QAM #30 tab 01/13/19 [Rx] Follow up Appointment(s)/Referral(s): Divya Bradford MD [STAFF PHYSICIAN] - 2 Weeks Natasha Garg NPC [Nurse Practitioner] - 01/17/19 11:30 am Eben Wallace MD [STAFF PHYSICIAN] - 02/07/19 1:15 pm [facility], [NON-STAFF] - Mina Julien MD [Primary Care Provider] - 2 Weeks Mirela Esteves MD [STAFF PHYSICIAN] - 2 Weeks Ambulatory/Diagnostic Orders: Complete Blood Count w/diff [LAB.AMB] Time Frame: 3 Days, Location: None Selected Comprehensive Metabolic Panel [LAB.AMB] Time Frame: 3 Days, Location: None Selected Activity/Diet/Wound Care/Special Instructions: DISCHARGE INSTRUCTIONS: 1. No driving for 4 weeks, or until physician gives their ok. 2. The patient should sleep in their own bed, no medical bed needed. 3. Stairs are not an issue. If the bedroom is upstairs, it is advised that the patient go up at night and down in the morning for the first week. Go slowly, using handrail and take 1 step at a time. 4. RADHA hose are to be worn for 30 days or until physician discontinues. 5. Heart hugger is to be worn 100% of the time until physician discontinues.(except when showering) 6. No lifting, pushing, or pulling more than 10 pounds for 12 weeks. The physician will advise of any restriction changes. 7. The patient is expected to continue the prescribed walking program. 8. Continue pain control per as needed orders. 9. Continue with incentive spirometry and splinting/heart hugger until otherwise directed by the physician. 10. Must shower daily using liquid antibacterial soap and a separate white washcloth for each individual incision. 11. Routine sternal incision care. No powders, lotions, ointments on incisions. 12. Please call surgeon/SWIMMING INSTRUCTOR for temp greater than 101 F or purulent drainage from incisions. 13. All prescriptions given by surgeon for 30 days. Refills need to be filled through mixed animal veterinarian/primary care physician. 14. A Red armband has been placed on the patient. It should be worn for 30 days post surgery and will be removed by the cardiac surgeons. If an ER visit is necessary, please make sure the number on the Red armband is called. HOME HEALTH SERVICES TO PROVIDE: RN SKILLED HOME CARE SERVICES FOR POST-OP SURGICAL PATIENTS WITH THE FOLLO WING: Coronary Artery Bypass Surgery (CABG), Mitral Valve Replacement/Repair ( MVR), Aortic Valve Replacement/Repair (AVR) RN TO CONTINUE EDUCATION FROM ``ROAD TO A [facility] HEART PATIENT EDUCATION MA MIKO (GIVEN TO PATIENT IN THE HOSPITAL) MEDICATION RECONCILIATION WITH EDUCATION NEEDED ON FIRST HOME VISIT EMPHASIZE IMPORTANCE OF WEARING BREAST SUPPORT/HEART HUGGER ENCOURAGE USE OF INCENTIVE SPIROMETER 10 X EVERY HOUR WHILE AWAKE ENCOURAGE UTILIZATION OF LOWER EXTREMITY COMPRESSION STOCKINGS/RADHA HOSE and ELEVATE LEGS ABOVE LEVEL OF HEART WHILE AT REST. ENCOURAGE AMBULATION 3-5x/day INCREASING TOLERATES, WHILE AVOID EXTREMES IN TEMPERATURE FREQUENCY: RN TO OPEN THE PATIENT WITHIN 24 HOURS OF DISCHARGE FROM THE HOSPITAL WITH TELEHEALTH INSTALLED AT [facility], RN TO VISIT 2-3 X A WEEK FOR 4 WEEKS ESTABLISHED BY PATIENT NEEDS. LABORATORY: CBC, CMP TO BE DRAWN ON THE THIRD DAY HOME, (RAN STAT) FAX RESULTS TO [phone]. TELEHEALTH PARAMETERS: WEIGHT: NOTIFY MD OF WEIGHT GAIN OF 2 LBS IN 24 HOURS OR 5 LBS IN ONE WEEK HR: NOTIFY MD OF HR <55 BPM OR HR>100 BPM BP: NOTIFY MD IF BP <90/55 OR BP>140/100 O2 SAT: NOTIFY MD IF PO2<93% ON ROOM AIR SEND TELEHEALTH REPORT TO [employer] AGENT AND CARDIOVASCULAR SURGEON THE FIRST WEEK OF CARE AND THEN BI-WEEKLY. PLEASE ADDITIONALLY COMMUNICATE ANY ABNORMALS AND NEW FINDINGS TO THE SURGEONS OFFICE. Discharge Disposition: HOME WITH HOME HEALTH SERVICES
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
--- NOTE | 2019-01-13 13:35 | P.PN ---
Subjective Patient is doing well. Mild discomfort incisional but quite tolerable. No dizziness lightheadedness no shortness of breath On examination afebrile 97.6F pulse rate in the 80s 90s, blood pressure 132/84 and 126/75 of his mercury Breath sounds are clear no rhonchi no crackles Heart sounds are soft and distant Abdomen soft No JVD No lower extremity edema Hemoglobin 8.8 Electrolytes normal Impression Severe aortic stenosis status post aortic valve replacement Coronary disease status post GILL graft to the LAD Postoperative hemorrhage acute anemia COPD History of smoking Daily alcohol use Hypertension Status post aortic valve replacement and coronary artery bypass grafting and ligation of left atrial appendage Doing well from a chronic standpoint Suggest Patient to go home today from chronic standpoint and continue his current card iac medications including aspirin Lasix atorvastatin metoprolol Plavix Follow-up with primary presentation manager within the next few weeks Objective - Vital Signs Vital signs: Vital Signs Temp 97.6 F 01/13/19 07:38 Pulse 95 01/13/19 07:38 Resp 16 01/13/19 07:38 BP 161/71 01/13/19 07:38 Pulse Ox 93 L 01/13/19 07:38 Intake & Output 01/12/19 01/13/19 01/13/19 18:59 06:59 18:59 Intake Total 80 240 Balance 80 240 Weight 96.5 kg Intake: Oral 80 240 Other: Voiding Method Bedside Commode Bedside Commode Bedside Commode Urinal Urinal Urinal ABP, PAP, CO, CI - Last Documented Arterial Blood Pressure 173/74 Pulmonary Artery Pressure 37/17 Cardiac Output 5.6 Cardiac Index 2.8 - Labs CBC & Chem 7: 01/13/19 05:40 01/13/19 05:40 Labs: Abnormal Lab Results - Last 24 Hours (Table) 01/12/19 01/12/19 01/13/19 Range/Units 16:40 20:23 01:33 RBC (4.30-5.90) m/uL Hgb (13.0-17.5) gm/dL Hct (39.0-53.0) % RDW (11.5-15.5) % Glucose (74-99) mg/dL POC Glucose (mg/dL) 149 H 146 H 138 H (75-99) mg/dL Calcium (8.4-10.2) mg/dL 0701/13/19 01/13/19 Range/Units 05:40 05:40 05:42 RBC 2.88 L (4.30-5.90) m/uL Hgb 8.8 L (13.0-17.5) gm/dL Hct 26.5 L (39.0-53.0) % RDW 15.8 H (11.5-15.5) % Glucose 121 H (74-99) mg/dL POC Glucose (mg/dL) 126 H (75-99) mg/dL Calcium 8.3 L (8.4-10.2) mg/dL
[2019-01-14] MEDS ORDERED: FUROSEMIDE 40 MG TAB PO SCH (09:00)
[2019-01-14] MEDS ORDERED: POTASSIUM CHLORIDE ER 20 MEQ TAB.ER PO SCH (09:00)
== END 2019-01-13 10:59 | disposition home health service (06) | DRG 219 ==
LOC: 2ORMAIN 05:33 → 2SICU 12:47 → 3SCARD 01-12 16:54
PROVIDERS: ADMIT Thoracic Surgery (Cardiothoracic Vascular Surgery); ATTEND Thoracic Surgery (Cardiothoracic Vascular Surgery)
PROC: 02Q60ZZ Repair Right Atrium, Open Approach (ICD-10-PCS; 2019-01-07)
PROC: 5A1221Z Performance of Cardiac Output, Continuous (ICD-10-PCS; 2019-01-07)
PROC: 02L70CK Occlusion of Left Atrial Appendage with Extraluminal Device, Open Approach (ICD-10-PCS; 2019-01-07)
PROC: B24BZZ4 Ultrasonography of Heart with Aorta, Transesophageal (ICD-10-PCS; 2019-01-07)
PROC: 30243K1 Transfusion of Nonautologous Frozen Plasma into Central Vein, Percutaneous Approach (ICD-10-PCS; 2019-01-07)
PROC: 30243N1 Transfusion of Nonautologous Red Blood Cells into Central Vein, Percutaneous Approach (ICD-10-PCS; 2019-01-07)
PROC: 30243R1 Transfusion of Nonautologous Platelets into Central Vein, Percutaneous Approach (ICD-10-PCS; 2019-01-07)
PROC: 02RF08Z Replacement of Aortic Valve with Zooplastic Tissue, Open Approach (ICD-10-PCS; principal; 2019-01-07 08:00)
PROC: 02100Z9 Bypass Coronary Artery, One Artery from Left Internal Mammary, Open Approach (ICD-10-PCS; 2019-01-07 08:00)
DX: I35.0 Nonrheumatic aortic (valve) stenosis (principal); J96.01 Acute respiratory failure with hypoxia; D62 Acute posthemorrhagic anemia; J93.83 Other pneumothorax; J98.11 Atelectasis; I97.611 Postprocedural hemorrhage of a circulatory system organ or structure following cardiac bypass; D69.59 Other secondary thrombocytopenia; E87.79 Other fluid overload; J44.9 Chronic obstructive pulmonary disease, unspecified; B18.2 Chronic viral hepatitis C; I25.10 Atherosclerotic heart disease of native coronary artery without angina pectoris; E66.9 Obesity, unspecified; E78.5 Hyperlipidemia, unspecified; I10 Essential (primary) hypertension; I45.4 Nonspecific intraventricular block; R79.1 Abnormal coagulation profile; E11.9 Type 2 diabetes mellitus without complications; E07.9 Disorder of thyroid, unspecified; Z68.35 Body mass index [BMI] 35.0-35.9, adult; Z79.82 Long term (current) use of aspirin; Z79.899 Other long term (current) drug therapy; Z87.891 Personal history of nicotine dependence; Z87.01 Personal history of pneumonia (recurrent); Z85.828 Personal history of other malignant neoplasm of skin; Z82.5 Family history of asthma and other chronic lower respiratory diseases; Z82.49 Family history of ischemic heart disease and other diseases of the circulatory system; Z80.0 Family history of malignant neoplasm of digestive organs; Z82.0 Family history of epilepsy and other diseases of the nervous system; Y83.2 Surgical operation with anastomosis, bypass or graft as the cause of abnormal reaction of the patient, or of later complication, without mention of misadventure at the time of the procedure
CPT/HCPCS: 36415; 36430; 71045; 71046; 80048; 80053; 80061; 80074; 81003; 82330; 82805; 83036; 83735; 84100; 84443; 85025; 85027; 85384; 85520; 85610; 85730; 86850; 86891; 86900; 86901; 86920; 87070; 87086; 88305; 88311; 93005; 94002; 94003; 94640

== ENCOUNTER 2019-08-09 15:04 | Emergency (ER) | payer BC ==
[2019-08-09 15:19] VITALS: TEMP 97.9
[2019-08-09] MEDS ORDERED: IPRATROPIUM-ALBUTEROL 3 ML NEB INHALATION STA (15:51)
[2019-08-09 16:40] LABS: Basophils # (A) 0.2 k/uL (0-0.2); Basophils % (A) 2 %; Eosinophils # (A) 0.6 k/uL (0-0.7); Eosinophils % (A) 6 %; HCT 45.7 % (39.0-53.0); HGB 15.8 gm/dL (13.0-17.5); Lymphocytes # (A) 2.5 k/uL (1.0-4.8); Lymphocytes % (A) 27 %; MCH 32.6 pg (25.0-35.0); MCHC 34.6 g/dL (31.0-37.0); MCV 94.2 fL (80.0-100.0); Mean Platelet Volume 7.7; Monocytes # (A) 0.6 k/uL (0-1.0); Monocytes % (A) 7 %; Neutrophils % (A) 54 %; Platelet Count 224 k/uL (150-450); RBC 4.86 m/uL (4.30-5.90); RDW 13.1 % (11.5-15.5); WBC 9.2 k/uL (3.8-10.6)
[2019-08-09 16:46] LABS: Potassium 3.9 mmol/L (3.5-5.1)
[2019-08-09 16:47] LABS: ALT 61 U/L (4-49); AST 48 U/L (17-59); African American GFR (CKD) >90 (>60 ml/min/1.73 sqM); Albumin 4.7 g/dL (3.5-5.0); Alkaline Phosphatase 105 U/L (38-126); Anion Gap 10 mmol/L; Blood Urea Nitrogen 16 mg/dL (9-20); Calcium 10.2 mg/dL (8.4-10.2); Carbon Dioxide 24 mmol/L (22-30); Chloride 103 mmol/L (98-107); Glucose 119 mg/dL (74-99); INR 0.9 (<1.2); Non-African American GFR(CKD) >90 (>60 ml/min/1.73 sqM); Partial Thromboplastin Time 23.7 sec (22.0-30.0); Prothrombin Time 9.7 sec (9.0-12.0); Sodium 137 mmol/L (137-145); Total Bilirubin 0.9 mg/dL (0.2-1.3)
--- NOTE | 2019-08-09 17:04 | ED ---
General Adult HPI - General Chief complaint: Shortness of Breath Stated complaint: SOB Time Seen by Provider: 08/09/19 15:41 Source: patient, RN notes reviewed, old records reviewed Mode of arrival: ambulatory Limitations: no limitations - History of Present Illness Initial comments: 64 rolled male presents today with cough wheezing on complaining of some shortness of breath for the past 24 hours. Patient reports he was putting is having a COPD flareup. He denies chest pain. Patient was seen at [facility], was given a chest x-ray was sent for concerns for EKG changes. Patient reports that he has no acute chest pain at this time there is any worsening chest pain on exertion. Patient was quite upset that he was transferred here and states he just wanted to go home. 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 He did have aortic valve replacement and CABG done in December of last year. - Related Data Home Medications Medication Instructions Recorded Confirmed Ascorbic Acid [Vitamin C] 500 mg PO DAILY 09/06/18 01/07/19 Cholecalciferol [Vitamin D3 (25 1,000 unit PO DAILY 09/06/18 01/07/19 Mcg = 1000 Iu)] Fluticasone/Umeclidin/Vilanter 1 puff INHALATION RT-DAILY 09/06/18 01/07/19 [Trelegy Ellipta 100-62.5-25] Multivitamins, Thera [Multivitamin 1 tab PO DAILY 09/06/18 01/07/19 (formulary)] Vitamin E 100 unit PO DAILY 09/06/18 01/07/19 Albuterol Inhaler [Ventolin Hfa 1 - 2 puff INHALATION RT-Q6H PRN 10/12/18 01/07/19 Inhaler] Previous Rx's Medication Instructions Recorded Acetaminophen Tab [Tylenol] 1,000 mg PO Q6HR PRN #120 tab 01/13/19 Aspirin 325 mg PO DAILY #30 tab 01/13/19 Atorvastatin [Lipitor] 40 mg PO DAILY #30 tab 01/13/19 Clopidogrel [Plavix] 75 mg PO DAILY #30 tab 01/13/19 Furosemide [Lasix] 40 mg PO DAILY 5 Days #5 tab 01/13/19 Metoprolol Tartrate [Lopressor] 50 mg PO BID #60 tab 01/13/19 Pantoprazole [Protonix] 40 mg PO AC-BRKFSAnnemarie #30 tablet. 01/13/19 Potassium Chloride ER [K-Dur 20] 20 meq PO DAILY 5 Days #5 01/13/19 tab.er.prt Sennosides-Docusate Sodium 2 each PO HS PRN tab 01/13/19 [Senokot-S] amLODIPine [Norvasc] 10 mg PO QAM #30 tab 01/13/19 Furosemide [Lasix] 40 mg PO DAILY 5 Days #5 tablet 01/18/19 Azithromycin [Zithromax Z-pack] 250 mg PO DIRECTED #6 tab 08/09/19 predniSONE 10 mg PO DAILY #15 tab 08/09/19 Allergies Allergy/AdvReac Type Severity Reaction Status Date / Time No Known Allergies Allergy Verified 08/09/19 15:18 Review of Systems ROS Statement: Those systems with pertinent positive or pertinent negative responses have been documented in the HPI. ROS Other: All systems not noted in ROS Statement are negative. Past Medical History Past Medical History: COPD, Hypertension, Pneumonia Additional Past Medical History / Comment(s): heart murmur, recent pneumonia now resolved, valve problem per pt., see Dr Esteves H & P History of Any Multi-Drug Resistant Organisms: None Reported Past Surgical History: Hernia Repair, Orthopedic Surgery, Tonsillectomy Additional Past Surgical History / Comment(s): left leg surg to stretch achilles tendon Past Anesthesia/Blood Transfusion Reactions: No Reported Reaction Past Psychological History: No Psychological Hx Reported Smoking Status: Former smoker Past Alcohol Use History: Occasional Past Drug Use History: None Reported - Past Family History Mother Family Medical History: Coronary Artery Disease (CAD), Dementia Father Family Medical History: Asthma, Cancer General Exam - General Exam Comments Initial Comments: 64-year-old male. No distress. Limitations: no limitations General appearance: alert, in no apparent distress Head exam: Present: atraumatic, normocephalic, normal inspection Eye exam: Present: normal appearance, PERRL, EOMI. Absent: scleral icterus, conjunctival injection, periorbital swelling ENT exam: Present: normal exam, mucous membranes moist Neck exam: Present: normal inspection. Absent: tenderness, meningismus, lymphadenopathy Respiratory exam: Present: normal lung sounds bilaterally. Absent: respiratory distress, wheezes, rales, rhonchi, stridor Cardiovascular Exam: Present: regular rate, normal rhythm, normal heart sounds. Absent: systolic murmur, diastolic murmur, rubs, gallop, clicks GI/Abdominal exam: Present: soft, normal bowel sounds. Absent: distended, tenderness, guarding, rebound, rigid Extremities exam: Present: normal inspection, full ROM, normal capillary refill. Absent: tenderness, pedal edema, joint swelling, calf tenderness Back exam: Present: normal inspection Neurological exam: Present: alert, oriented X3, CN II-XII intact Psychiatric exam: Present: normal affect, normal mood Skin exam: Present: warm, dry, intact, normal color. Absent: rash Course Vital Signs 08/09/19 08/09/19 08/09/19 15:16 15:55 16:02 Temperature 97.9 F Pulse Rate 101 H 100 98 Respiratory 20 Rate Blood Pressure 185/95 O2 Sat by Pulse 95 Oximetry 08/09/19 17:15 Temperature Pulse Rate 95 Respiratory 18 Rate Blood Pressure 173/99 O2 Sat by Pulse 96 Oximetry EKG Findings - EKG Comments: EKG Findings:: EKG shows normal sinus rhythm right bundle branch block. Abnormal EKG. Ventricular rate of 93 bpm. Pulse 22 months sex. She jainism is 140 ms. QT QTc is 46/504 ms. Medical Decision Making - Medical Decision Making Is a 64-year-old male presenting today for eval for concern for cough congestion times one day and was sent from [id number]. He denies chest pain. This time EKG is reviewed to [facility] bundle branch block. Review the EKG with Dr. Yates. Patient was given IV and lab work obtained. Troponin test is negative. Review patient's outpatient chest x-ray which showed no infiltrate or other acute findings. He did have a minimal wheeze was given a DuoNeb treatment does report improvement. Discussed at this time treatment for her wheeze and COPD with further steroid and prescription of azithromycin. I did discuss the Patient were to have any chest pain he would need to return to the ER for reevaluation. Patient is agreeable treatment plan will comply. Return parameters were discussed. - Lab Data Result diagrams: 08/09/19 16:28 08/09/19 16:28 Lab Results 08/09/19 08/09/19 08/09/19 Range/Units 16:28 16:28 16:28 WBC 9.2 (3.8-10.6) k/uL RBC 4.86 (4.30-5.90) m/uL Hgb 15.8 (13.0-17.5) gm/dL Hct 45.7 (39.0-53.0) % MCV 94.2 (80.0-100.0) fL MCH 32.6 (25.0-35.0) pg MCHC 34.6 (31.0-37.0) g/dL RDW 13.1 (11.5-15.5) % Plt Count 224 (150-450) k/uL Neutrophils % 54 % Lymphocytes % 27 % Monocytes % 7 % Eosinophils % 6 % Basophils % 2 % Neutrophils # 5.0 (1.3-7.7) k/uL Lymphocytes # 2.5 (1.0-4.8) k/uL Monocytes # 0.6 (0-1.0) k/uL Eosinophils # 0.6 (0-0.7) k/uL Basophils # 0.2 (0-0.2) k/uL PT 9.7 (9.0-12.0) sec INR 0.9 (<1.2) APTT 23.7 (22.0-30.0) sec Sodium 137 (137-145) mmol/L Potassium 3.9 (3.5-5.1) mmol/L Chloride 103 (98-107) mmol/L Carbon Dioxide 24 (22-30) mmol/L Anion Gap 10 mmol/L BUN 16 (9-20) mg/dL Creatinine 0.77 (0.66-1.25) mg/dL Est GFR (CKD-EPI)AfAm >90 (>60 ml/min/1.73 sqM) Est GFR (CKD-EPI)NonAf >90 (>60 ml/min/1.73 sqM) Glucose 119 H (74-99) mg/dL Calcium 10.2 (8.4-10.2) mg/dL Total Bilirubin 0.9 (0.2-1.3) mg/dL AST 48 (17-59) U/L ALT 61 H (4-49) U/L Alkaline Phosphatase 105 (38-126) U/L Troponin I (0.000-0.034) ng/mL Total Protein 8.0 (6.3-8.2) g/dL Albumin 4.7 (3.5-5.0) g/dL 08/09/19 Range/Units 16:28 WBC (3.8-10.6) k/uL RBC (4.30-5.90) m/uL Hgb (13.0-17.5) gm/dL Hct (39.0-53.0) % MCV (80.0-100.0) fL MCH (25.0-35.0) pg MCHC (31.0-37.0) g/dL RDW (11.5-15.5) % Plt Count (150-450) k/uL Neutrophils % % Lymphocytes % % Monocytes % % Eosinophils % % Basophils % % Neutrophils # (1.3-7.7) k/uL Lymphocytes # (1.0-4.8) k/uL Monocytes # (0-1.0) k/uL Eosinophils # (0-0.7) k/uL Basophils # (0-0.2) k/uL PT (9.0-12.0) sec INR (<1.2) APTT (22.0-30.0) sec Sodium (137-145) mmol/L Potassium (3.5-5.1) mmol/L Chloride (98-107) mmol/L Carbon Dioxide (22-30) mmol/L Anion Gap mmol/L BUN (9-20) mg/dL Creatinine (0.66-1.25) mg/dL Est GFR (CKD-EPI)AfAm (>60 ml/min/1.73 sqM) Est GFR (CKD-EPI)NonAf (>60 ml/min/1.73 sqM) Glucose (74-99) mg/dL Calcium (8.4-10.2) mg/dL Total Bilirubin (0.2-1.3) mg/dL AST (17-59) U/L ALT (4-49) U/L Alkaline Phosphatase (38-126) U/L Troponin I <0.012 (0.000-0.034) ng/mL Total Protein (6.3-8.2) g/dL Albumin (3.5-5.0) g/dL - Radiology Data Radiology results: report reviewed Reviewed chest x-ray report shows no acute infiltrate or other findings. Previously suspected pneumonitis is resolved. Moderate cardiomegaly evidence of previous cardiac surgery. Old healed fractures are seen in ribs 6 through 9. Disposition Clinical Impression: COPD exacerbation Disposition: HOME SELF-CARE Condition: Good Additional Instructions: Up with her PCP on Monday and call cardiology. Return to the ED if any alarming signs or symptoms occur. Prescriptions: predniSONE 10 mg PO DAILY #15 tab Azithromycin [Zithromax Z-pack] 250 mg PO DIRECTED #6 tab Is patient prescribed a controlled substance at d/c from ED?: No Referrals: Mina Julien MD [Primary Care Provider] - 1-2 days Time of Disposition: 17:42
[2019-08-09 17:42] VITALS: BP 173/99; PULSE 95; RESP 18
== END 2019-08-09 17:56 | disposition home or self-care (01) ==
LOC: EC 15:04
DX: J44.1 Chronic obstructive pulmonary disease with (acute) exacerbation (principal); I45.19 Other right bundle-branch block; Z87.891 Personal history of nicotine dependence; Z79.51 Long term (current) use of inhaled steroids; Z87.01 Personal history of pneumonia (recurrent); Z90.89 Acquired absence of other organs; Z95.1 Presence of aortocoronary bypass graft; Z95.2 Presence of prosthetic heart valve; Z82.5 Family history of asthma and other chronic lower respiratory diseases; Z82.49 Family history of ischemic heart disease and other diseases of the circulatory system
CPT/HCPCS: 36415; 80053; 84484; 85025; 85610; 85730; 93005; 94640; 99285